=== PATIENT | female | born 2005 | race Caucasian/White ===

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

== ENCOUNTER 2023-10-19 12:24 | Outpatient (OUT) | payer BC, SELFPAY ==
[2023-10-19 14:09] LABS: Thyroid Stimulating Hormone 0.127 uIU/mL (0.358-3.740)
[2023-10-22 16:09] LABS: Thyroglobulin Antibody <1.0 IU/mL (0.0-0.9); Thyroid Peroxidase (TPO) Ab 22 IU/mL (0-34)
== END 2023-10-19 12:25 | disposition home or self-care (01) ==
PROVIDERS: PCP Internal Medicine; Visit Provider Radiology Radiation Oncology
DX: C73 Malignant neoplasm of thyroid gland (principal)
CPT/HCPCS: 36415; 84432; 84436; 84443; 86376; 86800

== ENCOUNTER 2025-01-01 14:53 | Outpatient (REF) | payer BC, SELFPAY ==
--- OUTSIDE RECORDS SUMMARY | 2025-01-01 11:30 | XMS_ITS | Encounter Summary ---
Author Organization [facility] Address [address] [facility] [place] [address] Care Team Providers Care Loom Changeover Operator Name Role Phone Shaikh FARNAZ Grijalva Primary Care Provider [phone] Reason for Visit * Reason Comments Gynecologic Exam Encounter Details Date Type Department Care Team (Latest Contact Info) Description 01/01/2025 11:30 AM EDT Procedure Visit [facility] [address] [place] [phone] Shama Rocha PA [address] [place], [facility]11 Well woman exam with routine gynecological exam Social History Tobacco Use Types Packs/Day Years Used Date Smoking Tobacco: Never Smokeless Tobacco: Never Alcohol Use Standard Drinks/Week Comments Not Currently 0 (1 standard drink = 0.6 oz pur e alcohol) Comments No Sex and Gender Information Value Date Recorded Sex Assigned at Not on file Legal Sex Female 6:55 PM EDT Gender Identity Not on file Sexual Orientation Not on file documented as of this encounter Last Filed Vital Signs Vital Sign Reading Time Taken Comments Blood Pressure 102/68 01/01/2025 11:51 AM EDT Pulse - - Temperature - - Respiratory Rate - - Oxygen Saturation - - Inhaled Oxygen Concentration - - Weight 62.1 kg (137 lb) 01/01/2025 11:51 AM EDT Height 172.7 cm (5' 8 ) 01/01/2025 11:51 AM EDT Body Mass Index 20.83 01/01/2025 11:51 AM EDT documented in this encounter Progress Notes * CHRIS Alberto - 01/01/2025 11:30 AM EDT Reason for Appointment: Patient ID: Jeanne Cormier is a 19 y.o. female who presents for Gynecologic Exam Patient presents today for Annual Exam. 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 Hoarse 11/06/2022 Papillary thyroid carcinoma (HCC) 12/15/2022 Resolved Ambulatory Problems Diagnosis Date Noted Acute right ankle pain 09/18/2022 Past Medical History: Diagnosis Date Disease of thyroid gland HISTORY PAST MEDICAL HISTORY SOCIAL HISTORY Past Medical History: Diagnosis Date Acute right ankle pain 09/18/2022 Disease of thyroid gland Social History Tobacco Use Smoking status: Never Smokeless tobacco: Never Substance Use Topics Alcohol use: Not Currently Drug use: Not Currently FAMILY HISTORY Family History Problem Relation Name Age of Onset Thyroid disease Mother Rachel Cormier SURGICAL HISTORY Past Surgical History: Procedure Laterality Date FNA W IMAGING GUIDANCE 07/28/2022 thyroid THYROID SURGERY 11/21/2022 RT hemithyroidectomy w neck explorationLidia THYROID SURGERY Left 12/07/2022 completion thyroidectomy, Dr. Murillo REVIEW OF SYSTEMS Review of Systems: Review of Systems Constitutional: Negative. HENT: Negative. Eyes: Negative. Respiratory: Negative. Cardiovascular: Negative. Gastrointestinal: Negative. Genitourinary: Negative. Musculoskeletal: Negative. Skin: Negative. Neurological: Negative. All other systems reviewed and are negative. Hematological: Negative. Endocrine: Negative. Allergic/Immunologic: Negative. OBJECTIVE Objective: Physical Exam Constitutional: Appearance: Normal appearance. She is well-developed. Genitourinary: Vulva normal. Right Adnexa: not tender and no mass present. Left Adnexa: not tender and no mass present. No cervical discharge. Breasts: Breasts are soft. Right: Normal. Left: Normal. HENT: Head: Normocephalic. Nose: Nose normal. Mouth/Throat: Mouth: Mucous membranes are moist. Cardiovascular: Rate and Rhythm: Normal rate and regular rhythm. Pulmonary: Effort: Pulmonary effort is normal. Breath sounds: Normal breath sounds. Abdominal: General: Bowel sounds are normal. There is no distension. Palpations: Abdomen is soft. Tenderness: There is no abdominal tenderness. There is no guarding or rebound. Musculoskeletal: General: No swelling. Normal range of motion. Cervical back: Normal range of motion. Right lower leg: No edema. Left lower leg: No edema. Neurological: General: No focal deficit present. Mental Status: She is alert and oriented to person, place, and time. Skin: General: Skin is warm and dry. Psychiatric: Mood and Affect: Mood normal. Behavior: Behavior normal. Vitals and nursing note reviewed. Exam conducted with a activities leader present. Vitals: Estimated body mass index is 21.9 kg/m?? as calculated from the following: Height as of 12/15/22: 5' 8 . Weight as of 12/15/22: 144 lb. BP: No LMP recorded. ASSESSMENT & PLAN ICD-10-CM 1. Well woman exam with routine gynecological exam Z01.419 Pap Smear Annual Exam: Patient presents today for an annual exam. Patient states she is doing well and has no complaints. Pap was obtained without difficulty. No orders of the defined types were placed in this encounter. Follow Up: Patient is to return in one year for annual unless needed otherwise. Documented by Shelley Prieto MA on behalf of: CHRIS Alberto documented in this encounter Plan of Treatment Upcoming Encounters Date Type Department Care Team (Late st Contact Info) Description 02/12/2025 9:20 AM EDT Office Visit [facility] [address] [place] [address] Janice Plata MD [address] [place] [address] Scheduled Orders Name Type Priority Associated Diagnoses Orde r Schedule Pap Smear Pathology and Cytology Routine Well woman exam with routine gynecological exam Ordered: 01/01/2025 documented as of this encounter Visit Diagnoses Diagnosis Well woman exam with routine gynecological exam Routine gynecological examination documented in this encounter Care Teams Loom Changeover Operator Relationship Specialty Start Date End Date Shaikh Grijalva MD PCP - General Internal Medicine 09/28/22 documented as of this encounter
--- OUTSIDE RECORDS SUMMARY | 2025-01-01 14:57 | XMS_ITS | Encounter Summary ---
Author Organization [facility] Address [address] [place] [address] Care Team Providers Care Soil Conservation Aide Name Role Phone Shaikh FARNAZ Grijalva Primary Care Provider [phone] Source Comments In the event this information is protected by the Federal Confidentiality of Alcohol and Drug AbusePatient Records regulations: The Federal rules restrict any use of the information to criminally investigate or prosecute any alcohol or drug abuse patient.[facility] Encounter Details Date Type Department Care Team (Late st Contact Info) Description 11/28/2022 Lab Requisition [facility] [address] [place] [address] Ras Morin [address] [place] [phone] Person encountering health services to consult on behalf of another person Social History Tobacco Use Types Packs/Day Years Used Date Smoking Tobacco: Never Assessed Comments Unknown Sex and Gender Information Value Date Recorded Sex Assigned at Not on file Legal Sex Female 9:09 AM EDT Gender Identity Not on file Sexual Orientation Not on file documented as of this encounter Plan of Treatment Upcoming Encounters Date Type Department Care Team (Late st Contact Info) Description 03/31/2025 11:00 AM EST Office Visit [facility] [address] [place] [address] labs 04/07/2025 4:15 PM EST [facility] Radiation Oncology [address] [place] [address] Debbi Blackmon MD [address] [place] [address] F/U Televisit documented as of this encounter Procedures Procedure Name Priority Date/Time Associated Diagnosis Comments SURGICAL PATHOLOGY REFERENCE LAB CONSULT Routine 11/28/2022 9:15 AM EDT Person encountering health services to consult on behalf of another person documented in this encounter Results * SURGICAL PATHOLOGY REFERENCE LAB CONSULT (11/28/2022 9:15 AM EDT) Case Report Surgical Pathology Report Case: [id number] Authorizing Provider: Ras Morin Collected: 11/28/2022 09:15 AM Ordering Location: [facility] Main Received: 11/28/2022 09:14 AM Pathologist: Marie Harrell MD Specimen: SLIDE(S)/BLOCK(S), 12 SLIDES ([id number]) & 12 BLOCKS (AFS,BFS,B1-B9,C) 12/01/2022 9:21 AM EDT [facility] FINAL DIAGNOSIS Outside slides ([id number], 11/21/2022, [place], [place]): A. Lymph nodes, anterior compartment of right neck, excision: - Two lymph nodes, negative for carcinoma (0/2). B. 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 - Chronic lymphocytic thyroiditis and nodular follicular hyperplasia. - See comment. C. Lymph node, anterior compartment of right neck, excision: - One lymph node negative for carcinoma (0/1). 12/01/2022 9:21 AM EDT [facility] at 0918 EDT Diagnosis Comment Thank you for sharing this challenging case with us. Sections of the right tyroid lobectomy show a follicular patterned nodule with partial cystic changes and occasional papillary structures, in a background of chronic lymphocytic thyroiditis and nodular follicular disease. On closer examination, the cells inside the nodule show variably expressed nuclear changes diagnostic for papillary thyroid carcinoma, including nuclear enlargement, crowding, pale chromatin and nuclear membrane irregularities. The periphery of the nodule is relatively well-demarcated with areas of irregularities consistent with focal tumor capsule invasion. Immunohistochemical stains for HBME1 were performed at [facility] (B4 and B6) and show the nodule cells are positive, supporting the diagnosis. The findings are consistent with papillary thyroid carcinoma, conventional type with a predominant follicular growth pattern. Extrathyroidal extension and lymphovascular invasion are not identified. The size of the nodule is difficult to accurately determine (tumor present on slides B1-B7) and correlation with the gross and ultrasound findings is recommended. As we are not involved in the gross assessment of the specimen, we are unable to comment on margin status or stage of consultation cases. Dr. Karla Cohen has reviewed selected slides and he agrees with the assessment. Thank you again for sending us this case in consultation. Please feel free to contact my office at [phone] if you have any questions. Laboratory Developed Test (LDT) Disclaimer: Performance characteristics of immunohistochemical, immunofluorescent and chromogenic in-situ hybridization tests have been determined by the performing laboratory within [facility] s [facility] Pathology and Laboratory Medicine [place] ([facility], [facility], [facility], [facility], [facility], or [facility]) in a manner consistent with CLIA requirements. One or more of these tests have not been cleared or approved by the FDA. [facility] is regulated under CLIA as qualified to perform high-complexity testing. These tests are used for clinical purposes. They should not be regarded as investigational or for research. Positive and negative controls stain appropriately. 12/01/2022 9:21 AM EDT [facility] Clinical History CONSULT REQUESTED 12/01/2022 9:21 AM EDT [facility] Performing Lab Diagnostic interpretation performed at [facility], [address] [place] [address] CLIA# [id number] Shared Services And Outsourcing Manager: Mario Alberto Ruiz M.D. 12/01/2022 9:21 AM EDT [facility] Addendum NRAS immunohistochemical stain was also performed at [facility] (B6) and is positive in the nodule cells. There is no change to the diagnosis. 12/01/2022 9:21 AM EDT [facility] Addendum electronically signed by Marie Harrell MD on 12/01/2022 at 0921 EDT Blocks or Slides PARAFFIN EMBEDDED TISSUE BLOCK SPECIMEN / Unknown 11/28/2022 9:15 AM EDT 11/28/2022 9:14 AM EDT us Ras Morin SURGICAL PATHOLOGY Edited R esult - Final [facility] [address] [place] [address], documented in this encounter Visit Diagnoses Diagnosis Person encountering health services to consult on behalf of another person Other person consulting on behalf of another person documented in this encounter Care Teams Soil Conservation Aide Relationship Specialty Start Date End Date Shaikh Grijalva MD [facility] [place] [address] [place] [address] PCP - General Primary Care 03/16/23 04/06/24 documented as of this encounter
--- OUTSIDE RECORDS SUMMARY | 2025-01-01 14:57 | XMS_ITS | Encounter Summary ---
Author Organization [facility] Address [address] [place] [address] Care Team Providers Care In Flight Technician Name Role Phone Shaikh FARNAZ Grijalva Primary Care Provider [phone] Source Comments In the event this information is protected by the Federal Confidentiality of Alcohol and Drug AbusePatient Records regulations: The Federal rules restrict any use of the information to criminally investigate or prosecute any alcohol or drug abuse patient.[facility] Encounter Details Date Type Department Care Team ([facility] Contact Info) Description 12/14/2022 Lab Requisition [facility] [address] [place] [address] Claudia Castle MD [address] [place] [id number] Person encountering health services to consult on [...] Upcoming Encounters Date Type Department Care Team ([facility] Contact Info) Description 03/31/2025 11:00 AM EST Office Visit [facility] [address] [place] [address] labs 04/07/2025 4:15 PM EST [facility] Radiation Oncology [address] [place] [place] [address] Debbi Blackmon MD [address] [place] [address] F/U Televisit documented as of this encounter Procedures Procedure Name Priority Date/Time Associated Diagnosis Comments SURGICAL PATHOLOGY REFERENCE LAB CONSULT Routine 12/14/2022 10:32 AM EDT Person encountering health services to consult on behalf of another person documented in this encounter Results * SURGICAL PATHOLOGY REFERENCE LAB CONSULT (12/14/2022 10:32 AM EDT) Case Report Surgical Pathology Report Case: [id number] Authorizing Provider: Claudia Castle MD Collected: 12/14/2022 10:32 AM Ordering Location: [facility] Lab Main Received: 12/14/2022 10:31 AM Pathologist: Freddie Branch MD Specimen: SLIDE(S), 7 SLIDES, [id number] 12/15/2022 12:50 PM EDT [facility] FINAL DIAGNOSIS 7 slides labeled [id number] are received from [facility] ([place], [place]), collected December 07, 2022. 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 - No angiolymphatic or perineural invasion. - Nodular thyroid hyperplasia. - Chronic lymphocytic thyroiditis. - Parathyroid tissue present. 12/15/2022 12:50 PM EDT [facility] at 1249 EDT Diagnosis Comment As we are not involved in the gross assessment of the specimen, we are unable to comment on margin status or stage of consultation cases. Dr. Nahid Bridges concurs. 12/15/2022 12:50 PM EDT [facility] Clinical History CONSULT REQUESTED 12/15/2022 12:50 PM EDT [facility] Performing Lab Diagnostic interpretation performed at [address]# [id number] [employer] Wire Fabric Machine Tender: Mario Alberto Ruiz M.D. 12/15/2022 12:50 PM EDT [facility] Blocks or Slides MICROSCOPE SLIDE / Unknown 12/14/2022 10:32 AM EDT 12/14/2022 10:31 AM EDT us Claudia Castle MD SURGICAL PATHOLOGY Final Result [facility] [address] [place] [address] [place] [address], documented in this encounter Visit Diagnoses Diagnosis Person encountering health services to consult on behalf of another person Other person consulting on behalf of another person documented in this encounter Care Teams In Flight Technician Relationship Specialty Start Date End Date Shaikh Grijalva MD [facility] [place] [address] PCP - General Primary Care 03/16/23 04/06/24 documented as of this encounter
--- OUTSIDE RECORDS SUMMARY | 2025-01-01 14:57 | XMS_ITS | Encounter Summary ---
Author Organization [facility] Address [address] [place] [address] Care Team Providers Care Laboratory Chief Name Role Phone Shaikh FARNAZ Grijalva Primary Care Provider [phone] Encounter Details Date Type Department Care Team (Late st Contact Info) Description 01/01/2025 Bamboo flowsheet [facility] [address] [place] [phone] Shama Rocha PA [address] [place], [facility] Social History Tobacco Use Types Packs/Day Years [...] Description 02/12/2025 9:20 AM EDT Office Visit [facility] [address] [place] [phone] Janice Plata MD [address] [place] [address] documented as of this encounter Visit Diagnoses Not on filedocumented in this encounter Care Teams Laboratory Chief Relationship Specialty Start Date End Date Shaikh Grijalva MD PCP - General Internal Medicine 09/28/22 documented as of this encounter
--- OUTSIDE RECORDS SUMMARY | 2025-01-01 14:58 | XMS_ITS | Clinical Summary ---
Author Organization [facility] Address [address] [place] [address] Care Team Providers Care Roller [employer] Name Role Phone Shaikh FARNAZ Grijalva Primary Care Provider [phone] Allergies No known active allergies Medications liothyronine (Cytomel) 5 MCG tablet Take by mouth Daily. Active calcitriol (Rocaltrol) 0.25 MCG capsule Take 0.5 mcg by mouth in the morning. Active calcium acetate (Phoslo) 667 MG capsule Take 1,334 mg by mouth in the morning and 1,334 mg at noon and 1,334 mg in the evening. Take with meals. Active levothyroxine (Synthroid, Levoxyl) 150 MCG tablet Take 150 mcg by mouth in the morning. 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 Enlargement of thyroid 09/18/2022 Abnormal thyroid biopsy 09/18/2022 Resolved Problems Problem Noted Date Diagnosed Date Resolved Date Acute right ankle pain 09/18/202209/18 Encounters Date Type Department Care Team Description 01/01/2025 11:30 AM EDT Procedure Visit [facility] [address] [place] [address] Shama Rocha PA Well woman exam with routine gynecological exam 01/01/2025 Bamboo flowsheet [facility] [address] [place] [address] Shama Rohca PA from Last 3 Months Family History Medical History Relation Name Comments Thyroid disease Mother Rachel Cormier Relation Name Status Comments Father Alive Mother Rachel Cormier Alive Social History Tobacco Use Types Packs/Day Years Used Date Smoking Tobacco: Never Smokeless Tobacco: Never Tobacco Cessation:Counseling Given: Not Answered Alcohol Use Standard Drinks/Week Comments Not Currently 0 (1 standard drink = 0.6 oz pur e alcohol) Comments No Sex and Gender Information Value Date Recorded Sex Assigned at Not on file Legal Sex Female 6:55 PM EDT Gender Identity Not on file Sexual Orientation Not on file Last Filed Vital Signs Vital Sign Reading Time Taken Comments Blood Pressure 102/68 01/01/2025 11:51 AM EDT Pulse - - Temperature - - Respiratory Rate - - Oxygen Saturation - - Inhaled Oxygen Concentration - - Weight 62.1 kg (137 lb) 01/01/2025 11:51 AM EDT Height 172.7 cm (5' 8 ) 01/01/2025 11:51 AM EDT Body Mass Index 20.83 01/01/2025 11:51 AM EDT Plan of Treatment Upcoming Encounters Date Type Department Care Team (Late st Contact Info) Description 02/12/2025 9:20 AM EDT Office Visit [facility] [address] [place] [phone] Janice Plata MD [address] [place] [address] Insurance [facility] Member Subscriber Plan / Payer ( fective 2019-Present) Name:Jeanne Cormier Relation to Subscriber:Child Name:Genia Abdirashid Fredy Date of :1974 (Home) Address: [address] [place] [address] Payer ID:Not on file Type:Not on file Address: [address] [place] [phone] [facility] Care Teams [employer] Relationship Specialty Start Date End Date Shaikh Grijalva MD PCP - General Internal Medicine 09/28/22
--- OUTSIDE RECORDS SUMMARY | 2025-01-01 16:19 | XMS_ITS | CCD ---
Author Organization [facility] Care Team Providers Care Director Microbiology Name Role Phone VALENTINE, PETERSON H Attending Unavailable FAWWAD, PETERSON H Admitting Unavailable FAWWAD, PETERSON H Primary Care Unavailable DR CLIFFORD SAINI Consulting Unavailable FAWWAD, PETERSON H Consulting Unavailable DR GIULIANO WHITTAKER V Consulting Unavailable FAWWAD, PETERSON H Attending Unavailable FAWWAD, PETERSON H Admitting Unavailable FAWWAD, PETERSON H Primary Care Unavailable FAWWAD, PETERSON H Consulting Unavailable FAWWAD, PETERSON H Attending Unavailable FAWWAD, PETERSON H Admitting Unavailable FAWWAD, PETERSON H Primary Care Unavailable FAWWAD, PETERSON H Consulting Unavailable Kerry Chavarria Unavailable SHAIKH GRIJALVA Primary Care Physician [phone] Unavailable Primary Care Provider Unavailabl e Timmis, Yulaina H Referring Unavailable Timmis, Yuliana H Admitting Unavailable ARTIWDANIELLA, Primary Care Unavailable Timmis, Yuliana H Attending Unavailable Timmis, Yuliana H Attending Unavailable Timmis, Yuliana H Referring Unavailable Timmis, Yuliana H Admitting Unavailable FAWWAD, PETERSON Primary Care Unavailable Timmis, Yuliana H Attending Unavailable Timmis, Yuliana H Referring Unavailable Timmis, Yuliana H Admitting Unavailable Shaikh Grijalva MD Primary Care Provider Shaikh Grijalva MD Primary Care Provider Unavailable Primary Care Provider Unavailabl e Debbi SINGH Referring Unavailable Debbi SINGH Attending Unavailable Debbi SINGH Attending Unavailable SHAIKH GRIJALVA Primary Care Unavailable Debbi SINGH Attending Unavailable Debbi SINGH Referring Unavailable Debbi SINGH Attending Unavailable Debbi SINGH Referring Unavailable Debbi SINGH Attending Unavailable Debbi SINGH Referring Unavailable Shaikh Grijalva MD Primary Care Provider Allergies Allergy Classification Reported Allergen(s) Allergy Type Date of Onset Reaction(s) Facility (1 source) No Known Medication Allergies; Translations: [No Known Medication Allergies] Propensity to adverse reactions (disorder) [facility] Repository Medications Current Medications Medication Drug Class(es) Dates Sig (Normalized) Sig (Original) calcium acetate 667 mg oral capsule (2 sources) calcium acetate (Phoslo) 667 MG capsule Take 1,334 mg by mouth in the morning and 1,334 mg at noon and 1,334 mg in the evening. Take with meals. Active levothyroxine sodium 0.175 mg oral tablet (20 sources) l-Thyroxine Start: 06-19-2024 take 1 tablet by mouth once daily before breakfast levothyroxine (SYNTHROID) 175 mcg tablet Take 1 tablet by mouth daily before breakfast. 90 tablet 3 06/19/2024 Active Start: 04-15-2024 End: 11-10-2024 take 1 tablet by mouth in the morning levothyroxine (Synthroid, Levoxyl) 150 MCG tablet Take 150 mcg by mouth in the morning. 05/08/2024 Active Start: 06-12-2023 End: 11-10-2024 take 1 tablet by mouth once daily before breakfast levothyroxine (SYNTHROID) 137 mcg tablet Take 1 tablet by mouth daily before breakfast. 30 tablet 3 04/14/2024 04/15/2024 Discontinued Start: 04-02-2023 End: 06-12-2023 take 1 tablet by mouth once daily levothyroxine (SYNTHROID) 125 mcg tablet Indications: Thyroid cancer (HCC) Take 1 tablet by mouth once daily. 30 tablet 3 04/02/2023 06/12/2023 Discontinued Start: 02-14-2023 take 1 tablet by sid th once daily levothyroxine (SYNTHROID) 112 mcg tablet TAKE 1 TABLET BY MOUTH EVERY DAY 90 tablet 1 02/14/2023 Active Start: 01-17-2023 End: 02-14-2023 take 1 tablet by mouth once daily levothyroxine (SYNTHROID) 112 mcg tablet Take 1 tablet by mouth once daily. 30 tablet 2 01/17/2023 02/14/2023 Discontinued Start: 11-13-2022 take 1 tablet by sid th once daily levothyroxine 50 mcg (0.05 mg) Tab 50 mcg = 1 tab(s), Oral, Daily, Thyroid Start Date: 11/13/22 Status: Ordered take 1 tablet by sid th once daily in the morning Synthroid 50 MCG 1 tablet in the morning on an empty stomach Orally Once a day Active Comment on above: Take 1 tablet by sid th once daily. TAKE 1 TABLET BY SID TH EVERY DAY Take 1 tablet by sid th daily before breakfast. Lutera (2 sources) Start : 11-02 Lutera 1 tab(s), Oral, Daily, 56 tab(s), Refill(s) 0 Start Date: 11/03/19 Status: Ordered MDI Spacer (2 sources) Start : 02-25 MDI Spacer MDI Spacer, See Instructions, 1 EA, 0, Use as directed, [employer] #72, Supply, 171, cm, 02/26/20 8:30:00 EST, Height/Length Dosing, 63.3, kg, 02/26/20 8:30:00 EST, Weight Dosing Start Date: 02/26/20 Status: Ordered 1 ml medroxyPROGESTERone acetate 150 mg/ml prefilled syringe (19 sources) Progestin Start : 04-07 End: 01-01 inject 1 mL by intramuscular injection once medroxyPROGESTERone (Depo-Provera) 150 MG/ML suspension prefilled syringe injection syringe Indications: Encounter for surveillance of injectable contraceptive INJECT 1 ML INTRAMUSCULARLY ONCE 1 mL 2 04/07/2024 01/01/2025 Discontinued (Therapy completed) Start: 01-08-2023 medroxyPROGEST ERone (DEPO-PROVERA) 150 mg/mL injection 01/08/2023 Active Orsythia (1 source) Orsythia Active Completed/Discontinued Medications Medication Drug Class(es) Dates Sig (Normalized) Sig (Original) albuterol HFA 90 mcg/inh MDI (2 sources) Start: 02-26-2020 take 1 dose by inhalation every four hours albuterol HFA 90 mcg/inh MDI 2 puff(s), Inhalation, q4hr Shortness of breath or wheezing, 1 EA, Refill(s) 1, as directed 15 minutes before exercise use with spacer chamber, [employer] #72, 171, cm, 02/26/20 8:30:00 EST, Height/Length Dosing, 63.3, kg, 02/26/20 8:30... Start Date: 02/26/20 Status: Ordered calcitriol 0.53604 mg oral capsule (13 sources) Vitamin D3 Analog Start: 12-09-2022 End: 04-15-2024 calcitriol (ROCALTROL) 0.25 mcg capsule Take 0.5 mcg by mouth. 12/09/2022 04/15/2024 Discontinued (Discontinued by another Health Care Provider) Comment on above: Take 0.5 mcg by mout h. calcium carbonate 1250 mg oral tablet (11 sources) Start: 12-08-2022 End: 04-15-2024 take 2 tablets by mouth three times daily calcium carbonate (OS-CORAL 500) 500 mg calcium (1,250 mg) tablet Take 2 tablets by mouth three times daily. 12/08/2022 04/15/2024 Discontinued (Discontinued by another Health Care Provider) Comment on above: Take 2 tablets by mo [facility] three times daily. liothyronine sodium 0.025 mg oral tablet (3 sources) l-Triiodothyroni ne Start: 12-09-2022 liothyronine (CYTOMEL) 25 mcg tablet take 1 tablet by mouth once lauro y liothyronine (Cytomel) 5 MCG tablet Take by mouth Daily. Active naproxen 375 mg oral tablet (1 source) Nonsteroidal Anti-inflammatory Drug Start: 02-17-2019 take 1 tablet by mouth every twelve hours at mealtime as needed Naproxen 375 MG 1 tablet with food or milk as needed Orally every 12 hrs for 7 days Jan, Not-Taking Problems Active Problems Problem Classification Problem Date Documented Date Episodic/Chronic Administrative/social admission (1 source) Encounter for examination for participation in sport Episodic Allergic reactions (2 sources) Acute contact dermatitis 02-26-2020 Episodic Anxiety disorders (2 sources) Anxiety 02-26-2020 Chronic Asthma (2 sources) Asthma 11-13-2022 Chronic Cancer of thyroid (11 sources) Malignant tumor of thyroid gland; Translations: [Malignant neoplasm of thyroid gland] Onset: 12-08-2022 Chronic Malaise and fatigue (6 sources) Other fatigue; Translations: [Fatigue] Onset: 04-19-2022 Episodic Other female genital disorders (2 sources) H/O: menorrhagia 11-13-2022 Episodic Other lower respiratory disease (4 sources) Dyspnea; Translations: [Shortness of breath] Onset: 11-21-2022 Episodic Ovarian cyst (2 sources) Cyst of ovary 11-13-2022 Episodic Thyroid disorders (16 sources) Nontoxic single thyroid nodule; Translations: [Nontoxic goiter, unspecified] Onset: 07-03-2022 Chronic Past or Other Problems Problem Classification Problem Date Documented Da te Episodic/Chronic Other non-traumatic joint disorders (2 sources) Acute ankle pain; Translations: [Pain in right ankle and joints of right foot] Onset: 09-18-2022 Resolved: 09-18-2022 09-18-2022 Episodic Other screening for suspected conditions (not mental disorders or infectious disease) (4 sources) Raised TSH level; Translations: [Thyroid biopsy specimen abnormal] Onset: 09-18-2022 03-01-2020 Episodic Other upper respiratory disease (2 sources) Hoarse; Translations: [Dysphonia] Onset: 11-06-2022 11-06-2022 Episodic Thyroid disorders (2 sources) Mass of thyroid gland; Translations: [Disorder of thyroid, unspecified] Onset: 09-29-2022 09-29-2022 Episodic Results Test Name Value Interpretation Reference Range Facility hearing screening*on 025 Unknown Analyte Pass Invalid Interpretation Code [facility] urinal[facility], dipstickon 11-10 Appearance (U) Clear Invalid Interpretation Code [facility] Color (U) Yellow Invalid Interpretation Code [facility] Glucose Ql (U) Negative Invalid Interpretation Code [facility] T3 SerPl-mCncon 09-12-2024 T3 [Mass/Vol] 130 ng/dL Normal 79-165 [facility] Comment on above: Order Comment: Speci men Type: BLOOD SPECIMEN Ordering Facility: [facility] Address: [address] [place] [address] Performed By: #### 3 053-6, 3016-3, 3026-2 #### [facility] CLIA [id number] [address] [place] [address] [place] T4 SerPl-mCncon 09-12-2024 T4 [Mass/Vol] 9.5 ug/dL Normal 5.5-10.2 [facility] Comment on above: Order Comment: Speci men Type: BLOOD SPECIMEN Ordering Facility: [facility] Address: [address] [place] [address] Performed By: #### 3 053-6, 3016-3, 3026-2 #### [facility] CLIA [id number] [address] [place] [address] [place] TSH SerPl-aCncon 09-12-2024 TSH Qn 0.025 m[IU]/L Low 0.270-4.200 [facility] Comment on above: Order Comment: Speci phyllis Type: BLOOD SPECIMEN Ordering Facility: [facility] Address: [address] [place] [address] Result Comment: If t he patient is , TSH reference range varies by gestational period: First Trimester (weeks 9-12): 0.180-2.990 mIU/L Second Trimester: 0.110-3.980 mIU/L Third Trimester: 0.480-4.710 mIU/L Elias Holguin et al. A Practical Approach for the Verifications and Determination of Site- and Trimester-Specific Reference Intervals for Thyroid Function tests in . Thyroid, 2019:29:3:412-420. aDrci E, et al. 2017 Guidelines of the [place] Thyroid Association for the Diagnosis and Management of Thyroid Disease during and the . Thyroid, 2017:27:3:315-389. Performed By: #### 3 053-6, 3016-3, 3026-2 #### [facility] CLIA [id number] [address] [place] [address] [place] Thyroglobulin and Thyrogobul in Ab panelon 09-12-2024 Thyroglobulin Ab Qn [IU]/mL Normal <4.0 [facility] Comment on above: Order Comment: Arvin ferguson Type: BLOOD SPECIMEN Ordering Facility: [facility] Address: [address] [place] [address] Result Comment: The Thyroglobulin Antibody test was performed using the Jael Scribd Unicel DXI paramagnetic particle chemiluminescent immunoassay method. Results obtained with different assay methods or kits cannot be used interchangeably. Performed By: #### 3 016-3, 3026-2 #### [facility] CLIA [id number] [address] [place] [address] [place] THYROGLOBULIN, SERUM <0.1 Low 1.6-50.0 [facility] Comment on above: Order Comment: Arvin ferguson Type: BLOOD SPECIMEN Ordering Facility: [facility] Address: [address] [place] [address] Result Comment: The Thyroglobulin test was performed using the Zing Unicel DXI paramagnetic particle chemiluminescent immunoassay method. Results obtained with different assay methods or kits cannot be used interchangeably. Performed By: #### 3 016-3, 3026-2 #### [facility] CLIA [id number] [address] [place] [address] [place] Bogdan 08-18-2024 [facility] Telephone ([facility]) JEANNE MÁRQUEZ ([id number]) 1 F Date Time Provider Department 08/18/24 Debbi SINGH During your visit today, we recorded the following information about you: Fam Montes De Oca, RN 08/18/2024 4:24 PM Signed Jeanne called stating she has not had labs drawn yet for tomorrow's phone visit. She is graduating college on 08/30/24 and would like to have labs drawn at [facility] sometime the week of 09/03/24. Follow up rescheduled with Dr. Singh to 09/23/24 at 3:[address] Singh's PTO. PSS: Please reschedule 08/19/24 phone visit to 09/23/24 at 3:45 per patient request. I will mail a copy of the lab work to patient's home address. TONY Hayes Autumn, HUC 08/19/2024 9:38 AM Signed I canceled today's Televisit and rescheduled it to 09/23/24 at 345 pm. JESSICA Frazier Allergies As of Date: 08/18/2024 (No Known Allergies) Date Reviewed: 01/09/2023 Reviewed by: Fam Montes De Oca LPN - Fully Assessed Reason for Visit: Appointment [186] Prescriptions as of 08/19/2024 - levothyroxine (SYNTHROID) 175 mcg tablet Take 1 tablet by mouth daily before breakfast. - levothyroxine (SYNTHROID) 150 mcg tablet TAKE 1 TABLET BY MOUTH EVERY DAY - medroxyPROGESTERone (DEPO-PROVERA) 150 mg/mL injection Problem List As Of Date: 08/18/2024 (None) Encounter Status:Closed by FAM MONTES DE OCA on 08/19/[address] [facility] 06-23-2024 [facility] Telephone ([facility]) JEANNE MÁRQUEZ ([id number]) 1 F Date Time Provider Department 06/23/24 Debbi SINGH During your visit today, we recorded the following information about you: Svetlana Bhagat RN 06/23/2024 8:55 AM Signed Message Received: 4 days ago Debbi Singh MD P Radt Ernestine Munson; Svetlana Hernández 2 m with labs televisit Allergies As of Date: 06/23/2024 (No Known Allergies) Date Reviewed: 01/09/2023 Reviewed by: Fam Montes De Oca LPN - Fully Assessed Reason for Visit: Future Appointment [256] Prescriptions as of 07/07/2024 - levothyroxine (SYNTHROID) 175 mcg tablet Take 1 tablet by mouth daily before breakfast. - levothyroxine (SYNTHROID) 150 mcg tablet TAKE 1 TABLET BY MOUTH EVERY DAY - medroxyPROGESTERone (DEPO-PROVERA) 150 mg/mL injection Problem List As Of Date: 06/23/2024 (None) Encounter Status:Closed by SVETLANA BHAGAT on 07/07/24 Normal [facility] Calcium SerPl-mCncon 025 Calcium [Mass/Vol] 9.4 mg/dL Normal 8.5-10.2 [facility] Comment on above: Order Comment: Speci men Type: BLOOD SPECIMEN Ordering Facility: [facility] Address: [address] [place] [address] Performed By: #### 3 016-3, 3026-2 #### [facility] CLIA [id number] [address] [place] [address] [place] T3 SerPl-mCncon 06-05-2024 T3 [Mass/Vol] 98 ng/dL Normal 79-165 [facility] Comment on above: Order Comment: Mravi men Type: BLOOD SPECIMEN Ordering Facility: [facility] Address: [address] [place] [address] Performed By: #### 3 016-3, 3026-2, 3053-6 #### [facility] CLIA [id number] [address] [place] [address] [place] T4 SerPl-mCncon 06-05-2024 T4 [Mass/Vol] 7.3 ug/dL Normal 5.5-10.2 [facility] Comment on above: Order Comment: Marvi men Type: BLOOD SPECIMEN Ordering Facility: [facility] Address: [address] [place], [place] [address] Performed By: #### 3 016-3, 3026-2, 3053-6 #### [facility] CLIA [id number] [address] [place] [address] [place] TSH SerPl-aCncon 06-05-2024 TSH Qn 5.910 m[IU]/L High 0.270-4.200 [facility] Comment on above: Order Comment: Speci men Type: BLOOD SPECIMEN Ordering Facility: [facility] Address: [facility] [place] [address] Result Comment: If t he patient is , TSH reference range varies by gestational period: First Trimester (weeks 9-12): 0.180-2.990 mIU/L Second Trimester: 0.110-3.980 mIU/L Third Trimester: 0.480-4.710 mIU/L Elias Holguin et al. A Practical Approach for the Verifications and Determination of Site- and Trimester-Specific Reference Intervals for Thyroid Function tests in . Thyroid, 2019:29:3:412-420. Darci Kulkarni, et al. 2017 Guidelines of the Canadian Thyroid Association for the Diagnosis and Management of Thyroid Disease during and the . Thyroid, 2017:27:3:315-389. Performed By: #### 3 016-3, 3026-2, 3053-6 #### [facility] CLIA [id number] [address] [place], [place] [address] [place] CNOVon 04-15-2024 CNOV Office Visit ([facility] ) JEANNE MÁRQUEZ ([id number]) 1 F Date Time Provider Department 04/15/24 10:00 AM Debbi SINGH During your visit today, we recorded the following information about you: Temperature Pulse Respiration Blood pressure 98 degrees 71/minute 16/minute 104/73 Weight 65.1 kg Debbi Singh MD 04/22/2024 9:40 AM Signed Radiation Oncology -follow-up note PATIENT NAME: Jeanne Márquez PATIENT : 2005 Primary Site: Thyroid Date of Diagnosis: November 21, 2022 Clinical Stage: T2 N0 M0 Pathologic Stage: T2 N0 M0 DIAGNOSIS: 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 HPI: Overall doing well. She only spoke. Has follow-up more cold than has had increased fatigue over the past 1 to 2 months. Denies any chest pain. No dysphagia. Latest Reference Range AND Units 01/09/23 10:02 03/16/23 09:54 04/07/24 10:23 T4 5.5 - 10.2 ug/dL 0.5 (L) 7.3 8.1 TSH 0.510 - 4.300 mIU/L 2.240 14.300 (H) 21.700 (H) Thyroglobulin Ab, Serum <4.0 IU/mL <0.9 Thyroglobulin, Serum 1.6 - 50.0 ng/mL 0.3 (L) (L): Data is abnormally low (H): Data is abnormally high LABORATORY: Latest Reference Range AND Units 01/09/23 10:02 03/16/23 09:54 06/01/23 09/29/23 Thyroglobulin, LC-MS/MS 1.3 - 31.8 ng/mL <0.5 (L) na T4 5.5 - 10.2 ug/dL 0.5 (L) 7.3 9.6 10.3 TSH 0.510 - 4.300 mIU/L 2.240 14.300 (H) 6.13 .127 Review of Systems: PAIN ASSESSMENT: Negative for pain, history of chronic pain, or current treatment for a chronic pain condition. GENERAL: No weight loss, malaise or fevers. NECK: Negative for goiter, pain or significant neck swelling MUSCULOSKELETAL: Negative for joint pain or swelling, back pain or muscle pain The remainder of the review of systems is negative. ALLERGIES No Known Allergies MEDICATIONS: medroxyPROGESTERone (DEPO-PROVERA) 150 mg/mL injection levothyroxine (SYNTHROID) 150 mcg tablet Take 1 tablet by mouth once daily. No past medical history on file. Prior radiation therapy, collagen vascular disease, or inflammatory bowel disease: No Any implanted or external electric devices? No status: Patient states there is no possibility she is at this time. Educated on risks of during treatment. PAST SURGICAL HISTORY Procedure Laterality Date THYROIDECTOMY FAMILY HISTORY Problem Relation Age of Onset Leukemia Paternal Grandfather Breast Cancer Maternal Aunt Social History Tobacco Use Smoking status: Never Smokeless tobacco: Never Substance Use Topics Alcohol use: Not Currently Drug use: Not Currently PHYSICAL EXAM: VS: BP 104/73 Pulse 71 Temp 36.7 ?C (98 ?F) Resp 16 Wt 65.1 kg (143 lb 8.3 oz) SpO2 100% BMI 22.48 kg/m? KPS: 100 General Appearance: Alert and oriented. No acute distress. HEENT: NCAT. Sclera anicteric. PERRL. EOMI. Oral cavity AND oropharnyx: lips and gums normal, oral and pharyngeal mucosa moist, palate elevates normally, tongue mobile and without palpable lesions, tonsils without masses Neck: Normal ROM. No palpable cervical or supraclavicular adenopathy. Musculoskeletal: No edema. Normal ROM in extremities. No bone or spine tenderness. Neuro: Speech fluent. Gait normal. No focal deficits. Skin: No rashes noted Lymphatics: No palpable lymphadenopathy. Hematologic: No signs of active bleeding. 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 Overall doing fairly well. Thyroglobulin remains very low despite lack of TSH suppression, actual TSH elevation presently. Given this recommend continued follow-up. Recommend increasing Synthroid for better TSH suppression will recheck labs in 2 to 3 months Signed by: Debbi Singh MD cc: To use this Smartlink, specify the provider ID whose address you want to display, e.g., .PROVADDR[1 (where 1 is the provider ID). Shaikh Valentine [address] [place] [address] Dr. Murillo Referring Provider: NO PCP [956] Allergies As of Date: 04/15/2024 (No Known Allergies) Date Reviewed: 01/09/2023 Reviewed by: Fam Montes De Oca LPN - Fully Assessed Reason for Visit: Thyroid Cancer [879] Primary Visit Diagnosis:Thyroid cancer (HCC) [C73] Order(s):THYROID STIMULATING HORMONE [SQTSH] Order #: [id number] FUTURE T4/THYROXINE [SQT4] Order #: [id number] FUTURE THYROID STIMULATING HORMONE [SQTSH] Order #: [id number] FUTURE T3 [SQT3] Order #: [id number] FUTURE T4/THYROXINE [SQT4] Order #: [id number] FUTURE levothyroxine (SYNTHROID) 150 mcg tabletT (more content not included)... Normal [facility] T4 SerPl-mCncon 04-07-2024 T4 [Mass/Vol] 8.1 ug/dL Normal 5.5-10.2 [facility] Comment on above: Order Comment: Arvin ferguson Type: BLOOD SPECIMEN Ordering Facility: [facility] Address: [address] [place] [address] Performed By: #### 3 016-3, 3026-2 #### [facility] CLIA [id number] [address] [place] [address] [place] TSH SerPl-aCncon 04-07-2024 TSH Qn 21.700 m[IU]/L High 0.510-4.300 [facility] Comment on above: Order Comment: Arvin ferguson Type: BLOOD SPECIMEN Ordering Facility: [facility] Address: [address] [place] [address] Result Comment: If t he patient is , TSH reference range varies by gestational period: First Trimester (weeks 9-12): 0.180-2.990 mIU/L Second Trimester: 0.110-3.980 mIU/L Third Trimester: 0.480-4.710 mIU/L Elias Holguin et al. A Practical Approach for the Verifications and Determination of Site- and Trimester-Specific Reference Intervals for Thyroid Function tests in . Thyroid, 2019:29:3:412-420. Darci Kulkarni et al. 2017 Guidelines of the [place] Thyroid Association for the Diagnosis and Management of Thyroid Disease during and the . Thyroid, 2017:27:3:315-389. Performed By: #### 3 016-3, 3026-2 #### [facility] CLIA [id number] [address] [place] [address] [place] OF [facility] Thyroglobulin and Thyrogobul in Ab panelon 04-07-2024 Thyroglobulin Ab Qn [IU]/mL Normal <4.0 [facility] Comment on above: Order Comment: Arvin ferguson Type: BLOOD SPECIMEN Ordering Facility: [facility] Address: [address] [place] [address] Result Comment: The Thyroglobulin Antibody test was performed using the AtheroNovael DXI paramagnetic particle chemiluminescent immunoassay method. Results obtained with different assay methods or kits cannot be used interchangeably. Performed By: #### 3 016-3, 3026-2 #### [facility] CLIA [id number] [address] [place] [address] THYROGLOBULIN, SERUM 0.3 ng/mL Low 1.6-50.0 [facility] Comment on above: Order Comment: Arvin ferguson Type: BLOOD SPECIMEN Ordering Facility: [facility] Address: [address] [place] [address] Result Comment: The Thyroglobulin test was performed using the Jael Genia Unicel DXI paramagnetic particle chemiluminescent immunoassay method. Results obtained with different assay methods or kits cannot be used interchangeably. Performed By: #### 3 016-3, 3026-2 #### [facility] CLIA [id number] [address] [place] [address] OF [place] Bogdan 04-01-2024 [place]GET[place] Telephone ([facility]) JEANNE MÁRQUEZ R ([id number]) 1 F Date Time Provider Department 04/01/24 Debbi SINGH During your visit today, we recorded the following information about you: Svetlana Bhagat RN 04/01/2024 9:03 AM Signed Please sign new Thyroglobulin order. Svetlana Bhagat RN Allergies As of Date: 04/01/2024 (No Known Allergies) Date Reviewed: 01/09/2023 Reviewed by: Fam Montes De Oca LPN - Fully Assessed Reason for Visit: Lab Orders [9198] Primary Visit Diagnosis:Thyroid cancer (HCC) [C73] Order(s):THYROGLOBULIN, SERUM WITH REFLEX TO IA OR LC-MS/MS [SQTHYRORF] Order #: [id number] FUTURE Prescriptions as of 04/02/2024 - levothyroxine (SYNTHROID) 137 mcg tablet Take 1 tablet by mouth daily before breakfast. - calcitriol (ROCALTROL) 0.25 mcg capsule Take 0.5 mcg by mouth. - calcium carbonate (OS-CORAL 500) 500 mg calcium (1,250 mg) tablet Take 2 tablets by mouth three times daily. - medroxyPROGESTERone (DEPO-PROVERA) 150 mg/mL injection Problem List As Of Date: 04/01/2024 (None) Encounter Status:Closed by VSETLANA BHAGAT on 04/02/[address] [facility] 02-25-2024 [facility] Telephone (RADTSA) JEANNE MÁRQUEZ ([id number]) 1 F Date Time Provider Department 02/25/24 Debbi SINGH During your visit today, we recorded the following information about you: Fam Montes De Oca LPN 02/25/2024 10:08 AM Signed Keegan pt's mother, left a message stating Jeanne is scheduled for a follow up with Dr. Singh 03/04/24. She is wondering if this appointment and lab work can be pushed back to March when Jeanne is home from [facility]. Please advise. TONY Pelayo Ariana, LPN 02/27/2024 9:18 AM Signed Keegan notified of Dr. Singh's response. Call transferred to [facility] to reschedule. Fam Montes De Oca RN Allergies As of Date: 02/25/2024 (No Known Allergies) Date Reviewed: 01/09/2023 Reviewed by: Fam Montes De Oca LPN - Fully Assessed Reason for Visit: Appointment [186] Prescriptions as of 02/27/2024 - levothyroxine (SYNTHROID) 137 mcg tablet Take 1 tablet by mouth daily before breakfast. - calcitriol (ROCALTROL) 0.25 mcg capsule Take 0.5 mcg by mouth. - calcium carbonate (OS-CORAL 500) 500 mg calcium (1,250 mg) tablet Take 2 tablets by mouth three times daily. - medroxyPROGESTERone (DEPO-PROVERA) 150 mg/mL injection Problem List As Of Date: 02/25/2024 (None) Encounter Status:Closed by FAM MONTES DE OCA on 02/27/24 Normal [facility] THYROGLOBULIN BY MASS SPECTR OMETRYon 01-14-2023 Thyroglobulin [Mass/Vol] <0.5 Low 1.3 - 31.8 ng/mL [facility] T4/THYROXINE BLOODon 023 T4 [Mass/Vol] 0.5 ug/dL Low 5.5 - 10.2 ug/dL [facility] TSH BLDon 01-10-2023 TSH Qn 2.240 m[IU]/L 0.510 - 4.300 mIU/L [facility] Pathology Reporton Pathology Report [id number]#1.00 CD:127 Normal [facility] IntraOperative Documentson 0 12-11-2022 IntraOperative Documents [id number]#1.00 CD:127 Normal [facility] CHEMISTRYOrdered By: SYSTEM SYSTEM on 12-08-2022 Calcium [Mass/Vol] 8.4 mg/dL Low 8.9 - 11. 1 mg/dL [facility] Remisol Calciumon 12-08-2022 Calcium [Mass/Vol] 8.4 mg/dL Low 8.9-11.1 [facility] Comment on above: Performed By: #### 2 [id number] #### [facility] Laboratory [address] [place] [address] Consent for Anesthesiaon Consent for Anesthesia [id number]#1.00 CD:127 Normal [facility] Discharge Instructionson Discharge Instructions [id number] D:127 Normal [facility] Discharge Note-Nursingon Discharge Note-Nursing IRLANDA MÁRQUEZALLIE Caldwell :2005 Visit Date:12/07/2022 Inpatient Discharge Instructions Your Care Team Admitting Physician - Yuliana Murillo MD Referring Physician - Yuliana Murillo MD Reason for Your Visit 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 Discharge Vitals Temperature (Oral) 36.5 ?C Heart Rate (Monitored) 68 Respiratory Rate 16 Blood Pressure 100/62 Height 171 cm Weight 70.5 kg What to do next Instructions From Your Doctor Event Name Event Result Discharge Activity Ambulate as tolerated Discharge Restrictions No driving for 24 hrs Discharge Diet(s) Regular Call Your Doctor For Redness, swelling, or pus at operative site Pending Diagnostic Test Results None Pharmacy Information Other: [facility] Discharge Instructions Keep neck dry 3 days. Antibiotic ointment to incision 2-3 times daily New Follow Up Appointments after Discharge Follow Up with Yuliana Murillo When: In 1 week 12/15/2022 EDT Comments: Call for appt Where: [address] [facility] [address] [place] [address]- Business (1) Follow Up with SHAIKH VALENTINE When: In 0 days Where: [address] [place] [address] [phone] Business (1) Medications What How Much When Why Instructions Next Dose Unchanged albuterol (albuterol HFA 90 mcg/ inh MDI) 2 Puffs Inhalation Every 4 hours as needed for Shortness of breath or wheezing Shortness of breath as directed 15 minutes before exercise use with spacer chamber NEEDED FOR SHORTNESS OF BREATH OR WHEEZING Unchanged ethinyl estradiol-levonorgestre l (Lutera) 1 Tablets By Mouth Every day 12/09 @ 9 AM Unchanged levothyroxine (levothyroxine 50 mcg (0.05 mg) Tab) 1 Tablets By Mouth Every day 12/09 @ 8 AM Unchanged Misc Prescription (MDI Spacer) See instructions Shortness of breath Use as directed NEEDED FOR SHORTNESS OF BREATH Test Results BMP Calcium Lvl: 8.4 mg/dL Low (12/08/22 05:55:00) Allergies No Known Allergies No Known Medication Allergies Problems Ongoing - Any problem that you are currently receiving treatment for. Anxiety Fatigue Shortness of breath TSH elevation Historical - Any problem that you are no longer receiving treatment for. Acute contact dermatitis Education Materials Thyroidectomy, Care After This sheet gives you information about how to care for yourself after your procedure. Your health care provider may also give you more specific instructions. If you have problems or questions, contact your health care provider. What can I expect after the procedure? After the procedure, it is common to have: ? Mild pain in the neck or upper body, especially when swallowing. ? A swollen neck. ? A sore throat. ? A weak or hoarse voice. ? Slight tingling or numbness around your mouth, or in your fingers or toes. This may last for a day or two after surgery. This condition is caused by low levels of calcium. You may be given calcium supplements to treat it. Follow these instructions at home: Medicines ? Take cjbj-abi-yxwozpd and prescription medicines only as told by your health care provider. ? Do not drive or use heavy machinery while taking prescription pain medicine. ? Do not take medicines that contain aspirin and ibuprofen until your health care provider says that you can. These medicines can increase your risk of bleeding. ? Take a thyroid hormone medicine as recommended by your health care provider. You will have to take this medicine for the rest of your life if your entire thyroid was removed. Eating and drinking ? Start slowly with eating. You may need to have only liquids and soft foods for a few days or as directed by your health care provider. ? To prevent or treat constipation while you are taking prescription pain medicine, your health care provider may recommend that you: ? Drink enough fluid to keep your urine pale yellow. ? Take faix-rvy-gyahkde or prescription medicines. ? Eat foods that are high in fiber, such as fresh fruits and vegetables, whole grains, and beans. ? Limit foods that are high in fat and processed sugars, such as fried and sweet foods. Incision care ? Follow instructions from your health care provider about how to take care of your incision. Make sure you: ? Wash your hands with soap and water before you change your bandage (dressing). If soap and water are not available, use hand digital asset manager. ? Change your dressing as told by your healt (more content not included)... Normal [facility] Inpatient Clinical Summaryon 12-08-2022 Inpatient Clinical Summary [place] [id number] Clinical Summary Person Information: Name: JEANNE MÁRQUEZ Age: 17 Years : 2005 Sex: Female PCP: SHAIKH GRIJALVA Marital Status: Single Race: White Ethnicity: Non- or Language: Kosovan Visit Id: Visit Reason: PIPILLARY THROID CARSANOMA Speciality: Acuity: Enc Type: Ambulatory/Same Day Surgery Med Service: Surgery Arrival: 12/07/2022 08:31:03 Discharge: Dispo Type: Address: [address] [place] [phone] Provider Notes: Diagnosis: Jose's thyroiditis; Papillary carcinoma of thyroid; Shortness of breath Problems Active Fatigue TSH elevation Anxiety Shortness of breath Smoking Status: Never Smoker Functional Status: Sensory Deficits: Other: none History of Falls: Mobility Assistance Prior to Admission: Independent ADLs: Independent Current Level of Assistance for Self-Care/Mobility: Cognitive Status: Allergies No Known Medication Allergies No Known Allergies Measurements: Height: 171 cm Weight: 70.5 kg Blood Pressure: 100 mmHg / 62 mmHg BMI: Procedures Thyroidectomy (12/05/2022) Immunizations No Immunizations Documented This Visit Final Med List: albuterol (albuterol HFA 90 mcg/inh MDI) 2 Puffs Inhalation every 4 hours as needed Shortness of breath or wheezing. as directed 15 minutes before exercise use with spacer chamber. Refills: 1. ethinyl estradiol-levonorgestre l (Lutera) 1 Tablets By Mouth every day. levothyroxine (levothyroxine 50 mcg (0.05 mg) Tab) 1 Tablets By Mouth every day. Misc Prescription (MDI Spacer) Use as directed. Refills: 0. Care Team Members: Attending Physician: Yuliana Murillo MD Consulting Physician: Referring Physician: Yuliana Murillo MD Follow up: With: Address: When: Yuliana Murillo [address] [place] [address] [address], [address] [place] [phone] Business (1) In 1 week 12/15/2022 Comments: Call for appt With: Address: When: SHAIKH VALENTINE [address] [place] [phone] Business (1) Patient Education Information: Normal [facility] Inpatient Patient Summaryon 12-08-2022 Inpatient Patient Summary [facility] [address] [place], [place] [address] Patient Discharge Instructions PERSON INFORMATION Name: JEANNE MÁRQUEZ Date of : 2005 Current Date: 12/08/2022 07:50:05 PHYSICIANS Admitting Physician: Yuliana Murillo MD Primary Care Physician: SHAIKH GRIJALVA PCP Phone Number: [phone] Comment: Discharge Diagnosis: Jose's thyroiditis; Papillary carcinoma of thyroid; Shortness of breath Condition at Discharge: Improved JEANNE MÁRQUEZ has been given the following list of follow-up instructions, prescriptions, and patient education materials: PATIENT FOLLOW-UP INFORMATION Diet: Regular Discharge Activity: Ambulate as tolerated Discharge Restrictions: No driving for 24 hrs Wound Care Instructions: Remove Your Dressing In Days Call Your Doctor For: Redness, swelling, or pus at operative site IF UNABLE TO CONTACT YOUR PHYSICIAN AND YOU FEEL IT IS AN EMERGENCY, GO TO THE NEAREST EMERGENCY ROOM OR CALL 911 Home Treatment: Other: none Devices/Equipment: None Special Services: Other: none Additional Instructions: Keep neck dry 3 days. Antibiotic ointment to incision 2-3 times daily Primary Care Physician to provide the following pending test results: None Follow up: With: Address: When: Yuliana Weinbergmarry [address] [place] [address] [address], [address] [place] [address] Business (1) In 1 week 12/15/2022 Comments: Call for appt With: Address: When: SHAIKH VALENTINE [address] [place], [place] [phone] Business (1) In the event that this physician does not participate in your insurance network, please consult with your insurance company to find a nearby participating provider. Comment: IYULISA ASPEN R, have received the attached patient education materials/instructions and have verbalized understanding: Patient Signature Date Clinican/Nurse Signature _ Date HERE ARE THE MEDICATION CHANGES THAT OCCURRED DURING YOUR HOSPITAL STAY Medications to Continue with No Changes Other Medications albuterol (albuterol HFA 90 mcg/inh MDI) 2 Puffs Inhalation every 4 hours as needed Shortness of breath or wheezing. as directed 15 minutes before exercise use with spacer chamber. Refills: 1. Last Dose: __Next Dose: __ ethinyl estradiol-levonorgestre l (Lutera) 1 Tablets By Mouth every day. Last Dose: __Next Dose: __ levothyroxine (levothyroxine 50 mcg (0.05 mg) Tab) 1 Tablets By Mouth every day. Last Dose: __Next Dose: __ Misc Prescription (MDI Spacer) Use as directed. Refills: 0. Last Dose: __Next Dose: __ Comment: MEDICATION LIST PROVIDED FOR YOU IS A LIST OF YOUR CURRENT MEDICATIONS. PLEASE CARRY THIS WITH YOU AT ALL TIMES. albuterol (albuterol HFA 90 mcg/inh MDI) 2 Puffs Inhalation every 4 hours as needed Shortness of breath or wheezing. as directed 15 minutes before exercise use with spacer chamber. Refills: 1. ethinyl estradiol-levonorgestre l (Lutera) 1 Tablets By Mouth every day. levothyroxine (levothyroxine 50 mcg (0.05 mg) Tab) 1 Tablets By Mouth every day. Misc Prescription (MDI Spacer) Use as directed. Refills: 0. Pharmacy Information: Other: [facility] Comment: PATIENT EDUCATION INFORMATION Instructions: Medication Leaflets: You may receive a survey from [employer] asking you to rate your care experience. Your feedback is important and will help us understand what we do well and how we can improve the quality of care we provide to you, your loved ones and our community. It?s an honor to serve you. Thank you for choosing [facility] Normal [facility] IntraOperative Documentson 0 12-08-2022 IntraOperative Documents [id number] CD:127 Normal [facility] Main OR Intraoperative Recor don 12-08-2022 Main OR Intraoperative Record IntraOp Document Type FT Summary Primary Physician: Yuliana Murillo MD Finalized Date/Time: 12/08/22 06:37:05 Pt. Name: YULISAJEANNE/Sex: 2005 Female Med Rec #: [id number] Physician: Yuliana Murillo MD Financial #: [id number] Pt. Type: A Room/Bed: [place] [address] Admit/Disch: 12/07/22 08:31:03 - Institution: Case Times FT Entry 1 Patient Times In Room 12/07/22 10:24:00 Out Room 12/07/22 12:59:00 Procedure Times Start 12/07/22 10:52:00 Stop 12/07/22 12:53:00 Anesthesia Times Start 12/07/22 10:24:00 Stop 12/07/22 12:59:00 Last Modified By: Lili Dodson RN 12/07/22 13:01:05 General Comments: 12/08/22 Chart opened to review and send charges LRoth CSFA Case Attendance FT Entry 1 Entry 2 Entry 3 Case Attendee Yuliana Murillo MD, DNP, ANIMAL RIDE MANAGER, Henry Rashid DO Role Performed Surgeon - Primary ANIMAL RIDE MANAGER Anesthesiologist of Record Time In 12/07/22 10:39:00 12/07/22 10:35:00 12/07/22 10:24:00 Time Out 12/07/22 12:59:00 12/07/22 12:59:00 12/07/22 10:38:00 Procedure THYROIDECTOMY(Left) THYROIDECTOMY(Left) THYROIDECTOMY(Left) Comments Dr. Porras supervisor nurse supervising. Out of room for break [phone] Last Modified By: Ivory RN, Lili Dodson RN, Lili Dodson RN, Lili Fowler 12/07/22 12:59:34 12/07/22 12:59:34 12/07/22 12:59:34 Entry 4 Entry 5 Entry 6 Case Attendee Rubi Mcmillan Jennifer E Saflund RN, Lili Fowler Role Performed Scrub - Primary Scrub - Primary Defensive Secondary Coach - Primary Time In 12/07/22 10:24:00 12/07/22 10:24:00 12/07/22 10:24:00 Time Out 12/07/22 12:59:00 12/07/22 12:00:00 12/07/22 12:59:00 Procedure THYROIDECTOMY(Left) THYROIDECTOMY(Left) THYROIDECTOMY(Left) Comments orientation. Out of preceptor preceptor. Out of room room for lunch for lunch [phone]. [id number]. Last Modified By: Ivory RN, Lili Dodson RN, Lili Dodson RN, Lili Fowler 12/07/22 12:59:34 12/07/22 12:59:34 12/07/22 12:59:34 Entry 7 Entry 8 Entry 9 Case Attendee Pedro Luis Li Ii ANIMAL RIDE MANAGER, Nneka Odom CST Role Performed Defensive Secondary Coach - Primary ANIMAL RIDE MANAGER STOCKHOLDER/SA Time In 12/07/22 10:24:00 12/07/22 10:24:00 12/07/22 10:24:00 Time Out 12/07/22 12:59:00 12/07/22 10:38:00 12/07/22 12:59:00 Procedure THYROIDECTOMY(Left) THYROIDECTOMY(Left) THYROIDECTOMY(Left) Comments orientation. Out of Dr. Porras Out of room for lunch room for lunch [phone] supervising. Break [phone] relief. Last Modified By: Ivory RN, Lili Dodson RN, Lili Dodson RN, Lili Fowler 12/07/22 12:59:34 12/07/22 12:59:34 12/07/22 12:59:34 Entry 10 Entry 11 Case Attendee Dianna HUSSEIN, Martinez Morrison Role Performed STOCKHOLDER/SA Scrub - Relief Time In 12/07/22 11:30:00 12/07/22 11:55:00 Time Out 12/07/22 12:10:00 12/07/22 12:37:00 Procedure THYROIDECTOMY(Left) THYROIDECTOMY(Left) Comments Lunch relief Lunch relief Last Modified By: Lili Dodson RN, RN, Olivia A 12/07/22 12:59:34 12/07/22 12:59:34 General Comments: Rubia Sharif, Nuvasive Rep, in attendance. TONY Chilelnetbackup administrator Protocols FT Pre-Care Text: Implements protective measures prior to operative or invasive procedure, confirms identity before the operative or invasive procedure, verifies operative procedure, surgical site, and laterality Entry 1 Procedure(s) THYROIDECTOMY(Left) Patient Identity Birthday, Blood Band, Verified (select at ID Band Check, Patient least 2): Participation Consents / H and P Anesthesia Consent, Operative Site Present Verified HandP, Surgery/Procedure Marking Verified Consent, Transfusion Consent Surgical Site Yes Laterality Verified Yes Verified Procedure Verified Yes Correct Patient Yes Position Verified Availability Equipment, Medication Prep Dry n/a Verified (If Applicable) PreOp Antibiotic Yes Time Out Yuliana Murillo MD, Given Participants Christopher WOOD, GEOVANNY, Queen Cristóbal, Rubi Mcmillan Francis, Jennifer E, Saflund RN, Guillermo Hackett Alfons Ii F Time Out Complete 12/07/22 10:51:00 Outcomes Met? Yes Last Modified By: Lili Dodson RN 12/07/22 10:58:46 Post-Care Text: The patient is free from signs and symptoms of injury caused by extraneous objects Allergy Information FT Pre-Care Text: Verifies allergies Entry 1 Allergies Reviewed? Yes Allergies Reviewed Self/Patient With Outcomes Met? Yes Last Modified By: Lili Dodson RN 12/07/22 11:07:52 Post-Care Text: The patient received appropriate medication(s) safely administered during the perioperative period Surgical Procedures FT Entry 1 Procedure Description Procedure THYROIDECTOMY Modifiers Left Surgeon Description LEFT COMPLETION THYROIDECTOMY Primary Procedure Yes Primary Surgeon Yuliana Murillo MD Start 12/07/22 10:59:00 Stop 12/07/22 12:53:00 Anesthesia Type General Surgical Service ENT Wound Class 1 - Clean Last Modified By: Ivory JIMENEZ, Lili Fowler 12/07/22 12:59:38 General (more content not included)... Normal [facility] Operative Reporton Operative Report SURGERY DATE: 12/07/2022 SPEECH LANGUAGE PATHOLOGIST ASSISTANT: Nneka Craig CST PREOPERATIVE DIAGNOSIS: Papillary carcinoma of the thyroid POSTOPERATIVE DIAGNOSIS: Papillary carcinoma of the thyroid OPERATION: Completion left total thyroidectomy ANESTHESIA: General endotracheal using a recurrent laryngeal nerve monitoring endotracheal tube FINDINGS: Fibrosis of the left thyroid to surrounding soft tissues consistent with patient's diagnosis of Jose's thyroiditis, otherwise slightly nodular left thyroid gland without any large discrete masses. COMPLICATIONS: None INDICATIONS: This 17-year-old young woman underwent a right hemithyroidectomy 16 days ago and was found to have papillary carcinoma of the thyroid. She presented today for completion thyroidectomy in anticipation of I-131 therapy at a later date. PROCEDURE: The patient identified in the Holding Area and taken back to the Operating Room where she was placed in a supine position. After induction of general endotracheal anesthesia using a recurrent laryngeal nerve monitoring tube, a shoulder roll was placed and the neck was prepped and draped in a sterile fashion. A 10 blade knife was made to use an incision through the patient's previous incision and using sharp and blunt dissection, the incision was opened past the platysma. Then using blunt finger dissection, the previous inferior and superior thyroid flaps were opened. A thyroid retractor was then put in position where the strap muscles had been reapproximated in the midline with interrupted Vicryl sutures. These sutures were cut exposing the trachea. The patient's left thyroid had been tagged with a Prolene suture to facilitate identification and the left thyroid was readily identified. The left strap muscles were then bluntly dissected away from the thyroid using a hemostat and harmonic scalpel. Attention was first turned to the superior thyroid. Using blunt dissection, the superior thyroid was carefully dissected and fibrous attachments transected using harmonic scalpel. The superior thyroid vessels were identified, hemoclipped and transected using harmonic scalpel freeing the superior pole. Once this accomplished, attention was turned to the inferior pole and again a subcapsular dissection was undertaken with harmonic scalpel being used to transect the fibrous and vascular attachments of the inferior thyroid. Then laterally blunt dissection was used to do a subcapsular dissection freeing the muscle attachments to the lateral thyroid. The gland was then rotated medially and dissection continued. There was considerable fibrosis of the overlying strap muscles to the thyroid requiring significant blunt dissection. The recurrent laryngeal nerve was identified electrically in the tracheoesophageal groove and the superior and inferior parathyroid glands were positively identified and carefully dissected away from the thyroid and their attachments transected with harmonic scalpel. The remainder of the gland was gradually dissected away from the surrounding soft tissues and eventually the trachea with the recurrent laryngeal nerve under continuous observation and testing being done to ensure that it was not inadvertently injured. Once the gland was removed from the trachea, the recurrent laryngeal nerve was once again stimulated proximally and found to be electrically intact. The wound was then copiously irrigated with normal saline. A #7 round J Luis-Hidalgo drain was placed through a stab incision in the sternal notch and the strap muscles were reapproximated with interrupted 3-0 Vicryl sutures. The skin was then closed with two deep interrupted 4-0 Vicryl suture layers and a running 5-0 Monocryl subcuticular stitch. A pressure dressing was then placed and the patient was awakened and taken to the Recovery Room in good condition. Yuliana Murillo Jr., M.D. Dictated: 12/07/2022 [id number] Transcribed: 12/07/2022 *Shaikh Valentine M.D. [facility] Comment on above: Result Comment: Elec tronically Signed By: Yuliana Murillo MD\gigi\Date and Time Signed: 12/08/22 07:24 EDT Preoperative Documentson Preoperative Documents [id number]#1.00 CD:127 [facility] Progress Note-Physicianon Progress Note-Physician ENT POD 1 Resting comfortably AVSS Drain 5cc AM Ca 8.4 Wound C/D/I Drain removed. D/C home [facility] Comment on above: Result Comment: Elec tronically Signed By: Yuliana Murillo MD\gigi\Date and Time Signed: 12/08/22 07:47 EDT B hCG Qualon 12-07-2022 Beta hCG Ql Negative Normal [facility] Comment on above: Performed By: #### 2 [id number] #### [facility] [address] [place] [address] CHEMISTRYOrdered By: Krista Miranda on 12-07-2022 Calcium [Mass/Vol] 9.0 mg/dL Normal 8.9 - 11. 1 mg/dL [facility] Remisol Calciumon 12-07-2022 Calcium [Mass/Vol] 9.0 mg/dL Normal 8.9-11.1 [facility] Comment on above: Performed By: #### 2 [id number] #### [facility] [address] [place] [address] Consent for Procedure/Surger yon 12-07-2022 Consent for Procedure/Surgery [id number]#1.00 CD:127 Normal [facility] Consent for Treatmenton 11-21 Consent for Treatment [id number]#1.00C D:127 Normal [facility] H&P Updateon 12-07-2022 H&P Update [id number]#[id number] CD:127 Normal [facility] Main OR PACU I Recordon 11-21 Main OR PACU I Record PACU Phase I Docum ent Type FT Summary Primary Physician: Yuliana Murillo MD Finalized Date/Time: 12/07/22 14:20:22 Pt. Name: JEANNE MÁRQUEZ/Sex: 2005 Female Med Rec #: [id number] Physician: Yuliana Murillo MD Financial #: [id number] Pt. Type: A Room/Bed: N318 Admit/Disch: 12/07/22 08:31:03 - Institution: Case Times PACU I FT Pre-Care Text: Identifies barriers to communication and implements measures to provide psychological support Develops individualized plan of care, and ensures continuity of care Maintains patient's dignity and privacy, and maintains patient confidentiality Identifies and reports philosophical, cultural, and spiritual beliefs and values Identifies individual values and wishes concerning care Implements aseptic technique, and administers prescribed antibiotic therapy and immunizing agents as ordered Evaluates postoperative tissue perfusion Implements thermoregulation measures, and monitors body temperature Evaluates postoperative respiratory status Evaluates postoperative cardiac status Evaluates postoperative neurological status Assesses pain control, collaborated in initiating patient-controlled analgesia and implements alternative methods of pain control Verifies allergies, administers prescribed medications and solutions, evaluates response to medications Entry 1 In PACU I 12/07/22 13:00:00 Discharge from PACU 12/07/22 13:42:00 I Outcomes Met? Yes Last Modified By: Verónica Vilchis RN 12/07/22 14:20:06 Post-Care Text: The patient demonstrates knowledge of the expected response to the operative or invasive procedure The patient's care is consistent with the individualized perioperative plan of care The patient's right to privacy is maintained The patient's value system, lifestyle, ethnicity, and culture are considered, respected, and incorporated into the perioperative plan of care The patient participates in decisions affecting his or her perioperative plan of care The patient is free from signs and symptoms of infection The patient has wound/tissue perfusion consistent with or improved from baseline levels established preoperatively The patient is at or returning to normothermia at the conclusion of the immediate postoperative period The patient's respiratory function is consistent with or improved from baseline levels established preoperatively The patient's cardiovascular status is consistent with or improved from baseline levels established preoperatively The patient's cardiovascular status is consistent with or improved from baseline levels established preoperatively The patient demonstrates and/or reports adequate pain control throughout the perioperative period The patient received appropriate medication(s), safely administered during the perioperative period Acuity Level PACU I FT Entry 1 Start Time 12/07/22 13:00:00 Stop Time 12/07/22 13:42:00 Acuity Level Acuity Level I Last Modified By: Verónica Vilchis RN 12/07/22 14:20:17 Finalized By: Verónica Vilchis RN Document Signatures Signed By: Veróncia Vilchis RN 12/07/22 14:20 Normal [facility] Main OR Preoperative Recordo n 12-07-2022 Main OR Preoperative Record PreOp Document Type FT Summary Primary Physician: Yuliana Murillo MD Finalized Date/Time: 12/07/22 11:19:17 Pt. Name: JEANNE MÁRQUEZ /Sex: 2005 Female Med Rec #: [id number] Physician: Yuliana Murillo MD Financial #: [id number] Pt. Type: A Room/Bed: [place] [address] Admit/Disch: 12/07/22 08:31:03 - Institution: Case Times PreOp FT Pre-Care Text: Verifies consent for planned procedure, identifies individual values and wishes concerning care, includes family members in perioperative teaching Entry 1 Patient Times. In Pre Surgery 12/07/22 08:30:00 Out Pre Surgery 12/07/22 10:22:00 Outcomes Met? Yes Last Modified By: Lili Dodson RN 12/07/22 11:19:14 Post-Care Text: The patient participates in decisions affecting his or her perioperative plan of care Finalized By: Lili Dodson RN Document Signatures Signed By: Lili Dodson RN 12/07/22 11:19 Normal [facility] Monitor Recordon 12-07-2022 Monitor Record [id number]#1.00 CD:127 Normal [facility] Monitor Record [id number]#1.00 CD:127 [facility] Progress Note-Physicianon Progress Note-Physician Patient: JEANNE MÁRQUEZ Age: 17 years Sex: Female : 2005 Associated Diagnoses: None Author: Henry Porras DO Postoperative Information Postoperative disposition: Postoperative disposition: To PACU. Optimetrix number: Optimetrix number [id number]. Anesthetic utilized: General. Health Status Allergies: Allergic Reactions (Selected) No Known Allergies No Known Medication Allergies Current medications: (Selected) Inpatient Medications Ordered Lactated Ringers IV Hattie 1000 mL 1,000 mL: 1,000 mL, IV, 150 mL/hr, Routine, Start date 12/07/22 8:30:00 EDT, 6.7 hour(s), Total volume (mL): 1,000, 70.5 kg, 1.84, m2 Pepcid 20 mg Tab: 20 mg = 1 tab(s), Tab, Oral, BID, Routine, Start date 12/07/22 21:00:00 EDT Phenergan 25 mg/mL Injection: 6.25 mg = 0.25 mL, Injection, IV, q6hr PRN Nausea/Vomiting, Routine, Start date 12/07/22 13:07:00 EDT, 12/07/22 13:07:00 EDT Tylenol 325 mg Tab: 650 mg = 2 tab(s), Tab, Oral, q4hr PRN Pain/Fever, Routine, Start date 12/07/22 13:07:00 EDT, 12/07/22 13:07:00 EDT Tylenol with Codeine 300 mg-30 mg Tab: 2 tab(s), Tab, Oral, q4hr PRN Pain, Routine, Start date 12/07/22 13:07:00 EDT Zofran 4 mg/2 mL Injection: 4 mg = 2 mL, Injection, IV, Once PRN Nausea/Vomiting, Routine, Start date 12/07/22 13:07:00 EDT, 12/07/22 13:07:00 EDT albuterol: 2.5 mg, 3 mL, Soln-Inh, Inhalation, q4hr PRN Shortness of breath or wheezing for 30 day(s), Stop date 01/06/23 13:15:00 EDT, Start date 12/07/22 13:16:00 EDT ampicillin-sulbactam additive + Sodium Chloride 0.9% intravenous solution 100 mL: 3 gram = 1 EA, IV Piggyback, q6hrFT, Routine, Start date 12/07/22 18:00:00 EDT, 200 mL/hr, Infuse over 30 minute(s) Prescriptions Prescribed MDI Spacer: MDI Spacer, See Instructions, 1 EA, 0, Use as directed, [employer] #72, Supply, 171, cm, 02/26/20 8:30:00 EST, Height/Length Dosing, 63.3, kg, 02/26/20 8:30:00 EST, Weight Dosing albuterol HFA 90 mcg/inh MDI: 2 puff(s), Inhalation, q4hr Shortness of breath or wheezing, 1 EA, Refill(s) 1, as directed 15 minutes before exercise use with spacer chamber, [employer] #72, 171, cm, 02/26/20 8:30:00 EST, Height/Length Dosing, 63.3, kg, 02/26/20 8:30... Documented Medications Documented Lutera: 1 tab(s), Oral, Daily, 56 tab(s), Refill(s) 0 levothyroxine 50 mcg (0.05 mg) Tab: 50 mcg = 1 tab(s), Oral, Daily, Thyroid, Home Medications (4) Active albuterol HFA 90 mcg/inh MDI 2 puff(s), PRN, Inhalation, q4hr levothyroxine 50 mcg (0.05 mg) Tab 50 mcg = 1 tab(s), Oral, Daily Lutera 1 tab(s), Oral, Daily MDI Spacer See Instructions Problem list: All Problems Anxiety / SNOMED CT 88976716 / Confirmed Asthma, unconfirmed / SNOMED CT 419498081 / Confirmed Fatigue / SNOMED CT 468266755 / Confirmed Hx of menorrhagia / SNOMED CT 133135432 / Confirmed Shortness of breath / SNOMED CT 672566269 / Confirmed TSH elevation / SNOMED CT 511838488 / Confirmed Resolved: Acute contact dermatitis / SNOMED CT 910849150 Resolved: Ovarian cyst rupture / SNOMED CT 450604624 Physical Examination Vital Signs 12/07/2022 14:15 EDT Heart Rate Monitored 82 bpm SpO2 97 % 12/07/2022 14:15 EDT Respiratory Rate 17 br/min 12/07/2022 14:15 EDT Temperature Axillary 36.4 DegC 12/07/2022 14:14 EDT Systolic Blood Pressure 116 mmHg Diastolic Blood Pressure 73 mmHg Mean Arterial Pressure, Monitered 87 mmHg 12/07/2022 13:38 EDT Temperature Temporal Artery 37.1 DegC Heart Rate Monitored 89 bpm Respiratory Rate Monitored 12 br/min Systolic Blood Pressure 116 mmHg Diastolic Blood Pressure 77 mmHg SpO2 97 % 12/07/2022 13:30 EDT Heart Rate Monitored 74 bpm Respiratory Rate Monitored 13 br/min Systolic Blood Pressure 113 mmHg Diastolic Blood Pressure 64 mmHg SpO2 97 % 12/07/2022 13:15 EDT Heart Rate Monitored 89 bpm Respiratory Rate Monitored 13 br/min Systolic Blood Pressure 117 mmHg Diastolic Blood Pressure 80 mmHg SpO2 96 % 12/07/2022 13:10 EDT Heart Rate Monitored 76 bpm Respiratory Rate Monitored 14 br/min Systolic Blood Pressure 123 mmHg Diastolic Blood Pressure 81 mmHg SpO2 99 % FIO2 40 % 12/07/2022 13:08 EDT Temperature Temporal Artery In Error DegC (In Error) Heart Rate Monitored In Error bpm (In Error) Respiratory Rate Monitored In Error br/min (In Error) Systolic Blood Pressure In Error mmHg (In Error) Diastolic Blood Pressure In Error mmHg (In Error) SpO2 In Error % (In Error) 12/07/2022 13:05 EDT Heart Rate Monitored 116 bpm HI Respiratory Rate Monitored 15 br/min Systolic Blood Pressure 123 mmHg Diastolic Blood Pressure 81 mmHg SpO2 100 % FIO2 40 % 12/07/2022 13:00 EDT Temperature Temporal Artery 37.0 DegC Heart Rate Monitored 115 bpm HI Respiratory Rate Monitored 19 br/min Systolic Blood Pressure 128 mmHg Diastolic Blood Pressure 91 mmHg HI SpO2 98 % FIO2 100 % % 12/07/2022 12:55 EDT Heart Rate Monitored 101 bpm bpm Respiratory Rate 14 br/min br/min SpO2 100 % % FIO2 100 (more content not included)... Normal [facility] Comment on above: Result Comment: Elec tronically Signed By: Henry Porras DO\.br\Date and Time Signed: 12/07/22 14:29 EDT Progress Note-Physician Patient: JEANNE MÁRQUEZ Age: 17 years Sex: Female : 2005 Associated Diagnoses: None Author: Henry Porras DO Preoperative Information Anesthesia history: Patient history: None. Family history+: None. Anesthesia results Informed consent: Signed by patient. Including risks, benefits, and alternatives related to the: Anesthetic plan, Postoperative pain management plan. Re-evaluation prior to induction: Henry Porras DO. Health Status Allergies: Allergic Reactions (Selected) No Known Allergies No Known Medication Allergies, Allergies (2) Active Reaction No Known Allergies None Documented No Known Medication Allergies None Documented Current medications: (Selected) Inpatient Medications Ordered Lactated Ringers IV Hattie 1000 mL 1,000 mL: 1,000 mL, IV, 150 mL/hr, Routine, Start date 08/17/23 8:30:00 EDT, 6.7 hour(s), Total volume (mL): 1,000, 70.5 kg, 1.84, m2 Prescriptions Prescribed MDI Spacer: MDI Spacer, See Instructions, 1 EA, 0, Use as directed, [employer] #72, Supply, 171, cm, 02/26/20 8:30:00 EST, Height/Length Dosing, 63.3, kg, 02/26/20 8:30:00 EST, Weight Dosing albuterol HFA 90 mcg/inh MDI: 2 puff(s), Inhalation, q4hr Shortness of breath or wheezing, 1 EA, Refill(s) 1, as directed 15 minutes before exercise use with spacer chamber, [employer] #72, 171, cm, 02/26/20 8:30:00 EST, Height/Length Dosing, 63.3, kg, 02/26/20 8:30... Documented Medications Documented Lutera: 1 tab(s), Oral, Daily, 56 tab(s), Refill(s) 0 levothyroxine 50 mcg (0.05 mg) Tab: 50 mcg = 1 tab(s), Oral, Daily, Thyroid, Home Medications (4) Active albuterol HFA 90 mcg/inh MDI 2 puff(s), PRN, Inhalation, q4hr levothyroxine 50 mcg (0.05 mg) Tab 50 mcg = 1 tab(s), Oral, Daily Lutera 1 tab(s), Oral, Daily MDI Spacer See Instructions , Medications (1) Active Scheduled: (0) Continuous: (1) Lactated Ringers 1,000 mL 1,000 mL, IV, 150 mL/hr PRN: (0) Problem list: All Problems Anxiety / SNOMED CT 25206678 / Confirmed Asthma, unconfirmed / SNOMED CT 718759999 / Confirmed Fatigue / SNOMED CT 236956022 / Confirmed Hx of menorrhagia / SNOMED CT 733841996 / Confirmed Shortness of breath / SNOMED CT 957541906 / Confirmed TSH elevation / SNOMED CT 303481255 / Confirmed Resolved: Acute contact dermatitis / SNOMED CT 656762344 Resolved: Ovarian cyst rupture / SNOMED CT 147940311, Active Problems (6) Anxiety Asthma, unconfirmed Fatigue Hx of menorrhagia Shortness of breath TSH elevation Histories Past Medical History: Resolved Acute contact dermatitis (673741186): Resolved. Family History: Anxiety Father Blood clot Grandparent (Paternal Grandmother) Ulcerative colitis Mother Dementia Grandparent (Paternal Grandfather) Cataract Grandparent (Maternal Grandfather) Rheumatoid arthritis Mother Grandparent (Maternal Grandmother) Hypothyroidism Mother Grandparent (Maternal Grandmother) Hypoglycemia Mother Grandparent (Maternal Grandmother) COPD Grandparent (Maternal Grandmother) Comments: 02/26/2020 8:44 MARIANNE GOMEZRuthann Was a smoker Grandparent (Maternal Grandfather) Pneumothorax Grandparent (Maternal Grandfather) Angina Grandparent (Maternal Grandmother) Hyperlipidemia Father Leukemia Grandparent (Paternal Grandfather) Raynaud disease Grandparent (Maternal Grandmother) ADHD (attention deficit hyperactivity disorder), inattentive type Father Lung cancer Grandparent (Maternal Grandfather) Arthritis Grandparent (Maternal Grandfather) Procedure history: Right Thyroidectomy (87513746) on 12/05/2022 at 17 Years. Social History Social & Psychosocial Habits Alcohol 11/13/2022 Risk Assessment: Denies Alcohol Use Substance Abuse 11/13/2022 Risk Assessment: Denies Substance Abuse Tobacco 11/03/2019 Concerns about tobacco use in household: No 03/02/2021 Risk Assessment: No Risk . Physical Examination Vital Signs 12/07/2022 8:55 EDT Heart Rate Monitored 63 bpm Systolic Blood Pressure 103 mmHg Diastolic Blood Pressure 66 mmHg Blood Pressure Location Left arm Mean Arterial Pressure, Monitered 78 mmHg 12/07/2022 8:53 EDT Heart Rate Monitored 58 bpm LOW SpO2 100 % 12/07/2022 8:53 EDT Apical Heart Rate 66 bpm 12/07/2022 8:52 EDT Respiratory Rate 20 br/min 12/07/2022 8:52 EDT Temperature Axillary 36.5 DegC 12/07/2022 8:52 EDT Systolic Blood Pressure 106 mmHg Diastolic Blood Pressure 70 mmHg Blood Pressure Location Right arm Mean Arterial Pressure, Monitered 82 mmHg Vital Signs (last 24 hrs) Last Charted Temp Axillary 36.5 DegC (DEC 07 08:52) Heart Rate Apical 66 bpm (DEC 07 08:53) SBP 103 mmHg (DEC 07 08:55) DBP 66 mmHg (DEC 07 08:55) SpO2 100 % (DEC 07 08:53) Weight 65.3 kg (DEC 07 09:05) Measurements from flowsheet : Measurements 12/07/2022 9:05 EDT Height/Length Measured 171 cm Hei (more content not included)... Normal [facility] Comment on above: Result Comment: Elec tronically Signed By: Henry Porras DO.br\Date and Time Signed: 12/07/22 10:05 EDT SEROLOGYOrdered By: Massiel Choi on 12-07-2022 Beta hCG Ql Negative (12/07/22 9:14 AM) Normal [facility] Man Sero Pathology Reporton 3 Pathology Report [id number]#1.00C D:127 Normal [facility] IntraOperative Documentson 0 11-27-2022 IntraOperative Documents [id number]#1.00C D:127 Normal [facility] Discharge Instructionson Discharge Instructions [id number]#[id number] CD:127 Normal [facility] Operative Reporton 3 Operative Report SURGERY DATE: 11/21/2022 PRIMARY CARE PHYSICIAN: Everardo Oviedo M.D., FAAP SPEECH LANGUAGE PATHOLOGIST ASSISTANT: Letitia Doherty R.N. PREOPERATIVE DIAGNOSIS: Right thyroid mass POSTOPERATIVE DIAGNOSIS: Right thyroid mass and anterior chamber cervical lymphadenopathy OPERATION: Right hemithyroidectomy and neck exploration ANESTHESIA: General endotracheal COMPLICATIONS: None FINDINGS: Multiple anterior compartment cervical lymph nodes which were sent for frozen section and found to be benign and a 2.5 cm right thyroid nodule. 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 INDICATIONS: This 17 year old woman presented with a fairly rapidly enlarging right thyroid mass. Fine needle aspiration was obtained which revealed atypia of undetermined significance. A repeat biopsy was performed for molecular genetic testing which revealed high risk genetic mutations. PROCEDURE: The patient identified in the Holding Area and taken back to the Operating Room where she was placed in the supine position. After induction of general endotracheal anesthesia a shoulder roll was placed and an 8 cm transverse incision was mapped out two fingerbreadths above the sternal notch following relaxed skin lines of tension. An incision was made with a 10 blade and dissection carried out through the platysma with electrocautery. Subplatysmal flaps were raised superiorly and inferiorly. A thyroid retractor was then put in position to expose the wound. Strap muscles were incised in the midline exposing the thyroid isthmus. The thyroid isthmus was bluntly dissected with a hemostat and transected with harmonic scalpel. The left root of the thyroid was tagged with a 4-0 Prolene suture to facilitate future identification should completion thyroidectomy be necessary. Attention was then turned to right thyroidectomy. The thyroid was grasped with two Allis' and the strap muscles were bluntly dissected off of the gland with a hemostat and harmonic scalpel. After completely elevating the strap muscles the fibrovascular attachments of the gland inferiorly were bluntly dissected and transected with harmonic scalpel. The superior pole was then bluntly dissected with a hemostat and the fascial attachments transected with harmonic scalpel. The superior thyroid vessels were then bluntly dissected, hemoclipped and transected with harmonic scalpel and then the gland was dissected laterally with the middle thyroid vein being transected with harmonic scalpel. The gland was then rotated medially and the superior and inferior parathyroid glands were readily identified in the tracheoesophageal groove and bluntly dissected away from the thyroid gland. The recurrent laryngeal nerve was identified through electrical stimulation and with the parathyroid gland safely dissected away from the thyroid the remainder of the fascial attachments to the trachea were bluntly dissected and transected with harmonic scalpel after verifying the position of the recurrent laryngeal nerve. The gland was then removed and sent for pathologic analysis and the recurrent laryngeal nerve was stimulated medially and found to be electrically intact. Frozen section revealed a follicular neoplasm favoring benign diagnosis and therefore the decision was made to proceed with only a right hemithyroidectomy. The wound was copiously irrigated. A #7 round J Luis-Hidalgo drain was placed through a stab incision in the sternal notch and the strap muscles were reapproximated in the midline with interrupted 3-0 Vicryl sutures. The skin was then closed with two deep 4-0 Vicryl suture layers in a running 5-0 Monocryl stitch. A pressure dressing was placed and the patient was awakened and taken to the Recovery Room in good condition. Yuliana Murillo Jr., M.D. Dictated: 11/21/2022 [id number] Transcribed: 11/22/2022 cc:Everardo Oviedo M.D., [facility] Comment on above: Result Comment: Elec tronically Signed By: Lidia OSEI, Yuliana Shaw\.br\Date and Time Signed: 11/23/22 08:45 EDT Consent for Anesthesiaon Consent for Anesthesia [id number]#[id number] CD:127 [facility] Inpatient Clinical Summaryon 11-22-2022 Inpatient Clinical Summary [place] [id number] Clinical Summary Person Information: Name: JEANNE MÁRQUEZ Age: 17 Years : 2005 Sex: Female PCP: SHAIKH GRIJALVA Marital Status: Single Race: White Ethnicity: Non- or Language: Kosovan Visit Id: Visit Reason: THYROID MASS RIGHT Speciality: Acuity: Enc Type: Observation Med Service: Surgery Arrival: 11/21/2022 11:31:10 Discharge: Dispo Type: Address: [address] [place] [id number] Provider Notes: Diagnosis: Shortness of breath Problems Active Fatigue TSH elevation Anxiety Shortness of breath Smoking Status: Functional Status: Sensory Deficits: History of Falls: Mobility Assistance Prior to Admission: ADLs: Independent Current Level of Assistance for Self-Care/Mobility: Cognitive Status: Oriented x 3 Allergies No Known Medication Allergies No Known Allergies Measurements: Height: Weight: 70.5 kg Blood Pressure: 111 mmHg / 66 mmHg BMI: Procedures No Procedures Documented Immunizations No Immunizations Documented This Visit Final Med List: albuterol (albuterol HFA 90 mcg/inh MDI) 2 Puffs Inhalation every 4 hours as needed Shortness of breath or wheezing. as directed 15 minutes before exercise use with spacer chamber. Refills: 1. ethinyl estradiol-levonorgestre l (Lutera) 1 Tablets By Mouth every day. levothyroxine (levothyroxine 50 mcg (0.05 mg) Tab) 1 Tablets By Mouth every day. Misc Prescription (MDI Spacer) Use as directed. Refills: 0. Care Team Members: Attending Physician: Yuliana Murillo MD Consulting Physician: Referring Physician: Yuliana Murillo MD Follow up: With: Address: When: Yuliana Murillo [address] [place] [address] Business (1) In 1 week 11/29/2022 With: Address: When: SHAIKH MOOSEDEEPIKAFredy [address] [place] [phone] Business (1) Patient Education Information: [facility] Inpatient Patient Summaryon 11-22-2022 Inpatient Patient Summary JEANNE MÁRQUEZ :2005 Visit Date:11/21/2022 Inpatient Discharge Instructions Your Care Team Admitting Physician - Yuliana Murillo MD Referring Physician - Yuliana Murillo MD Reason for Your Visit THYROID MASS RIGHT Your Diagnosis Shortness of breath Tests Performed Pathology Tissue Exam -- Results Pending -- Serum Qual UA With Cult Reflex Please visit your patient portal for your results or contact your primary care physician. This Is Your Medications List Misc Prescription (MDI Spacer) albuterol (albuterol HFA 90 mcg/inh MDI) ethinyl estradiol-levonorgestre l (Lutera) levothyroxine (levothyroxine 50 mcg (0.05 mg) Tab) Discharge Vitals Temperature (Axillary) 36.5 ?C Heart Rate (Monitored) 64 Respiratory Rate 12 Blood Pressure 111/66 Weight 70.5 kg What to do next Instructions From Your Doctor Event Name Event Result Discharge Activity Expect mild pain, Expect minimal amount of drainage and/or bleeding Discharge Restrictions No driving for 24 hrs Discharge Diet(s) Regular Call Your Doctor For Redness, swelling, or pus at operative site Pending Diagnostic Test Results None Pharmacy Information Other: [facility] Discharge Instructions Antibiotic ointment to incision 2-3 times dailyKeep neck dry until 8/6No strenuous activity New Follow Up Appointments after Discharge Follow Up with Yuliana Murillo When: In 1 week 11/29/2022 EDT Where: [address] [place] [address]- Business (1) Follow Up with SHAIKH VALENTINE When: In 0 days Where: [address] [place] [address] [phone] Business (1) Medications What How Much When Why Instructions Next Dose Unchanged albuterol (albuterol HFA 90 mcg/ inh MDI) 2 Puffs Inhalation Every 4 hours as needed for Shortness of breath or wheezing Shortness of breath as directed 15 minutes before exercise use with spacer chamber as needed Unchanged ethinyl estradiol-levonorgestre l (Lutera) 1 Tablets By Mouth Every day resume Unchanged levothyroxine (levothyroxine 50 mcg (0.05 mg) Tab) 1 Tablets By Mouth Every day resume Unchanged Misc Prescription (MDI Spacer) See instructions Shortness of breath Use as directed Test Results No qualifying data available. Allergies No Known Allergies No Known Medication Allergies Problems Ongoing - Any problem that you are currently receiving treatment for. Anxiety Fatigue Shortness of breath TSH elevation Historical - Any problem that you are no longer receiving treatment for. Acute contact dermatitis Education Materials Shortness of Breath, Adult Shortness of breath is when a person has trouble breathing or when a person feels like she or he is having trouble breathing in enough air. Shortness of breath could be a sign of a medical problem. Follow these instructions at home: Pollutants ? Do not use any products that contain nicotine or tobacco. These products include cigarettes, chewing tobacco, and vaping devices, such as e-cigarettes. This also includes cigars and pipes. If you need help quitting, ask your health care provider. ? Avoid things that can irritate your airways, including: ? Smoke. This includes campfire smoke, forest fire smoke, and secondhand smoke from tobacco products. Do not smoke or allow others to smoke in your home. ? Mold. ? Dust. ? Air pollution. ? Chemical fumes. ? Things that can give you an allergic reaction (allergens) if you have allergies. Common allergens include pollen from grasses or trees and animal dander. ? Keep your living space clean and free of mold and dust. General instructions ? Pay attention to any changes in your symptoms. ? Take tqic-del-qhsssft and prescription medicines only as told by your health care provider. This includes oxygen therapy and inhaled medicines. ? Rest as needed. ? Return to your normal activities as told by your health care provider. Ask your health care provider what activities are safe for you. ? Keep all follow-up visits. This is important. Contact a health care provider if: ? Your condition does not improve as soon as expected. ? You have a hard time doing your normal activities, even after you rest. ? You have new symptoms. ? You cannot walk up stairs or exercise the way that you normally do. Get help right away if: ? Your shortness of breath gets worse. ? You have shortness of breath when you are resting. ? You feel light-headed or you faint. ? You have a cough that is not controlled with medicines. ? You cough up blood. ? You have pain with breathing. ? You have pain in your chest, arms, shoulders, or abdomen. ? You have a fever. These symptoms may be an emergency. Get help right away. Call 911. ? Do not wait to see if the symptoms will go away. ? Do not drive yourself to the hospital. (more content not included)... Normal [facility] Inpatient Patient Summary [place] [id number] Patient Discharge Instructions PERSON INFORMATION Name: JEANNE MÁRQUEZ Date of : 2005 Current Date: 11/22/2022 07:23:12 PHYSICIANS Admitting Physician: Yuliana Murillo MD Primary Care Physician: SHAIKH GRIJALVA PCP Phone Number: [phone] Comment: Discharge Diagnosis: Shortness of breath Condition at Discharge: Improved JEANNE MÁRQUEZ has been given the following list of follow-up instructions, prescriptions, and patient education materials: PATIENT FOLLOW-UP INFORMATION Diet: Regular Discharge Activity: Expect mild pain, Expect minimal amount of drainage and/or bleeding Discharge Restrictions: No driving for 24 hrs Wound Care Instructions: Remove Your Dressing In Days Call Your Doctor For: Redness, swelling, or pus at operative site IF UNABLE TO CONTACT YOUR PHYSICIAN AND YOU FEEL IT IS AN EMERGENCY, GO TO THE NEAREST EMERGENCY ROOM OR CALL 911 Home Treatment: Devices/Equipment: Special Services: Additional Instructions: Antibiotic ointment to incision 2-3 times daily Keep neck dry until 11/26 No strenuous activity Primary Care Physician to provide the following pending test results: None Follow up: With: Address: When: [place] [address] Business (1) In 1 week 11/29/2022 With: Address: When: SHAIKH ARTIBRO [address] [place], [place] [id number] [phone] Business (1) In the event that this physician does not participate in your insurance network, please consult with your insurance company to find a nearby participating provider. Comment: YULISA Worrell ASPEN R, have received the attached patient education materials/instructions and have verbalized understanding: Patient Signature Date Clinican/Nurse Signature _ Date HERE ARE THE MEDICATION CHANGES THAT OCCURRED DURING YOUR HOSPITAL STAY Medications to Continue with No Changes Other Medications albuterol (albuterol HFA 90 mcg/inh MDI) 2 Puffs Inhalation every 4 hours as needed Shortness of breath or wheezing. as directed 15 minutes before exercise use with spacer chamber. Refills: 1. Last Dose: __Next Dose: __ ethinyl estradiol-levonorgestre l (Lutera) 1 Tablets By Mouth every day. Last Dose: __Next Dose: __ levothyroxine (levothyroxine 50 mcg (0.05 mg) Tab) 1 Tablets By Mouth every day. Last Dose: __Next Dose: __ Misc Prescription (MDI Spacer) Use as directed. Refills: 0. Last Dose: __Next Dose: __ Comment: MEDICATION LIST PROVIDED FOR YOU IS A LIST OF YOUR CURRENT MEDICATIONS. PLEASE CARRY THIS WITH YOU AT ALL TIMES. albuterol (albuterol HFA 90 mcg/inh MDI) 2 Puffs Inhalation every 4 hours as needed Shortness of breath or wheezing. as directed 15 minutes before exercise use with spacer chamber. Refills: 1. ethinyl estradiol-levonorgestre l (Lutera) 1 Tablets By Mouth every day. levothyroxine (levothyroxine 50 mcg (0.05 mg) Tab) 1 Tablets By Mouth every day. Misc Prescription (MDI Spacer) Use as directed. Refills: 0. Pharmacy Information: Other: [facility] Comment: PATIENT EDUCATION INFORMATION Instructions: Medication Leaflets: You may receive a survey from [employer] asking you to rate your care experience. Your feedback is important and will help us understand what we do well and how we can improve the quality of care we provide to you, your loved ones and our community. It?s an honor to serve you. Thank you for choosing [facility] Normal [facility] Interdisciplinary Note - Donald e Manageron 11-22-2022 Interdisciplinary Note - Transportation Planning Technician Pt is awake and alert in bed, previously rounded with ENT. Mom at bedside. Aware of DC order and plan to DC today. Observation status reviewed. Pt and mom decline any concerns or DC needs and mom will transport at DC. nursing updated. . PCP verified and insurance information reviewed and insurance information reviewed and DME discussed. Contact information provided and white board updated. [facility] Comment on above: Result Comment: Elec tronically Signed By: Gaby JIMENEZ, María Elena\.br\Date and Time Signed: 11/22/22 08:33 EDT IntraOperative Documentson 0 11-22-2022 IntraOperative Documents [id number]#1.00 CD:127 [facility] IntraOperative Documents [id number] CD:127 [facility] Main OR Intraoperative Recor don 11-22-2022 Main OR Intraoperative Record IntraOp Document Type FT Summary Primary Physician: Yuliana Murillo MD Finalized Date/Time: 11/22/22 10:22:25 Pt. Name: JEANNE MÁRQUEZ/Sex: 2005 Female Med Rec #: [id number] Physician: Yuliana Murillo MD Financial #: [id number] Pt. Type: A Room/Bed: [place] [address] Admit/Disch: 11/21/22 11:31:10 - 11/22/22 09:16:00 Institution: Case Times FT Entry 1 Patient Times In Room 11/21/22 12:50:00 Out Room 11/21/22 15:54:00 Procedure Times Start 11/21/22 13:25:00 Stop 11/21/22 15:45:00 Anesthesia Times Start 11/21/22 12:50:00 Stop 11/21/22 15:54:00 Last Modified By: Torri Schmidt 11/21/22 15:59:08 General Comments: 11/22/22 Chart opened to review and send charges [facility] CSFA Case Attendance FT Entry 1 Entry 2 Entry 3 Case Attendee Yuliana Murillo MD RN, Letitia Brock CRNA, Wendy Stephen Role Performed Surgeon - Primary ENERGY RISK MANAGEMENT ANALYST ANIMAL RIDE MANAGER Time In 11/21/22 12:50:00 11/21/22 12:50:00 11/21/22 12:50:00 Time Out 11/21/22 15:54:00 11/21/22 15:54:00 11/21/22 15:54:00 Procedure THYROIDECTOMY(Right), THYROIDECTOMY(Right), THYROIDECTOMY(Right), FROZEN SECTION(Right) FROZEN SECTION(Right) FROZEN SECTION(Right) Comments is supervising Last Modified By: Torri Schmidt Kelsie E Burgderfer, Kelsie E 11/21/22 15:59:10 11/21/22 15:59:10 11/21/22 15:59:10 Entry 4 Entry 5 Entry 6 Case Attendee Torri Schmidt CST, Gauri Oglesby Role Performed Defensive Secondary Coach - Primary Scrub - Primary Scrub - Primary Time In 11/21/22 12:50:00 11/21/22 12:50:00 11/21/22 12:50:00 Time Out 11/21/22 15:54:00 11/21/22 14:40:00 11/21/22 14:45:00 Procedure THYROIDECTOMY(Right), THYROIDECTOMY(Right), THYROIDECTOMY(Right), FROZEN SECTION(Right) FROZEN SECTION(Right) FROZEN SECTION(Right) Comments preceptor orientation Last Modified By: Torri Schmidt Kelsie E Burgderfer, Kelsie E 11/21/22 15:59:10 11/21/22 15:59:10 11/21/22 15:59:10 Entry 7 Entry 8 Entry 9 Case Attendee Benji Rice CST, Martinez Hines Role Performed Staff - Other Staff - Other Staff - Other Time In 11/21/22 12:50:00 11/21/22 12:50:00 11/21/22 12:50:00 Time Out 11/21/22 13:15:00 11/21/22 14:59:00 11/21/22 13:15:00 Procedure THYROIDECTOMY(Right), THYROIDECTOMY(Right), THYROIDECTOMY(Right), FROZEN SECTION(Right) FROZEN SECTION(Right) FROZEN SECTION(Right) Comments ASSISTING NEEDED 2ND SCRUB ASSISTING NEEDED Last Modified By: Torri Schmidt Kelsie E Burgderfer, Kelsie E 11/21/22 15:59:10 11/21/22 15:59:10 11/21/22 15:59:10 Entry 10 Entry 11 Case Attendee Satnam JIMENEZ, Martinez Cordon Role Performed Defensive Secondary Coach - Primary Scrub - Primary Time In 11/21/22 14:40:00 11/21/22 14:50:00 Time Out 11/21/22 14:50:00 11/21/22 15:54:00 Procedure THYROIDECTOMY(Right), THYROIDECTOMY(Right), FROZEN SECTION(Right) FROZEN SECTION(Right) Comments Last Modified By: Torri Schmidt Kelsie E 11/21/22 15:59:10 11/21/22 15:59:10 General Comments: JULIET BOSTON, NUVASIVE NERVE MONITORING REP, IN ATTENDANCE.TONY WAY. Perioperative Protocols FT Pre-Care Text: Implements protective measures prior to operative or invasive procedure, confirms identity before the operative or invasive procedure, verifies operative procedure, surgical site, and laterality Entry 1 Procedure(s) THYROIDECTOMY(Right), Patient Identity Birthday, ID Band FROZEN SECTION(Right) Verified (select at Check, Patient least 2): Participation Consents / H and P Anesthesia Consent, Operative Site Present Verified HandP, Surgery/Procedure Marking Verified Consent, Transfusion Consent Surgical Site Yes Laterality Verified Yes Verified Procedure Verified Yes Correct Patient Yes Position Verified Availability Equipment, Medication Prep Dry n/a Verified (If Applicable) PreOp Antibiotic Yes Time Out Lidia OSEI, Yuliana , Given Participants Chas JIMENEZ, Vinod Dong CRNA, Wendy Stephen, Torri Schmidt, Rafa HUSSEIN, Nano Jiménez Madison A Time Out Complete 11/21/22 13:19:00 Outcomes Met? Yes Last Modified By: Torri Schmidt 11/21/22 13:40:17 Post-Care Text: The patient is free from signs and symptoms of injury caused by extraneous objects Allergy Information FT Pre-Care Text: Verifies allergies Entry 1 Allergies Reviewed? Yes Allergies Reviewed Self/Patient With Outcomes Met? Yes Last Modified By: Torri Schmidt 11/21/22 13:30:36 Post-Care Text: The patient received appropriate medication(s) safely administered during the perioperative period Surgical Procedures FT Entry 1 Entry 2 Procedure Description Procedure THYROIDECTOMY FROZEN SECTION Modifiers Right Right Surgeon Description RIGHT HEMITHYROIDECTOMY RIGHT HEMITHYROIDECTOMY AND NECK EXPLORATION AND NECK EXPLORATION WITH FROZEN SECTION AND WITH FROZEN SECTION AND NERVE MONITORING NERVE AMNA (more content not included)... Normal [facility] Main OR PACU I [facility] Main OR PACU I Record PACU Phase I Docum ent Type FT Summary Primary Physician: Yuliana Murillo MD Finalized Date/Time: 11/22/22 11:08:39 Pt. Name: JEANNE MÁRQUEZ./Sex: 2005 Female Med Rec #: [id number] Physician: Yuliana Murillo MD Financial #: [id number] Pt. Type: A Room/Bed: [place] [address] Admit/Disch: 11/21/22 11:31:10 - 11/22/22 09:16:00 Institution: Case Times PACU I FT Pre-Care Text: Identifies barriers to communication and implements measures to provide psychological support Develops individualized plan of care, and ensures continuity of care Maintains patient's dignity and privacy, and maintains patient confidentiality Identifies and reports philosophical, cultural, and spiritual beliefs and values Identifies individual values and wishes concerning care Implements aseptic technique, and administers prescribed antibiotic therapy and immunizing agents as ordered Evaluates postoperative tissue perfusion Implements thermoregulation measures, and monitors body temperature Evaluates postoperative respiratory status Evaluates postoperative cardiac status Evaluates postoperative neurological status Assesses pain control, collaborated in initiating patient-controlled analgesia and implements alternative methods of pain control Verifies allergies, administers prescribed medications and solutions, evaluates response to medications Entry 1 In PACU I 11/21/22 15:55:00 Discharge from PACU 11/21/22 16:25:00 I Outcomes Met? Yes Last Modified By: Anupama Sales RN 11/21/22 16:50:50 Post-Care Text: The patient demonstrates knowledge of the expected response to the operative or invasive procedure The patient's care is consistent with the individualized perioperative plan of care The patient's right to privacy is maintained The patient's value system, lifestyle, ethnicity, and culture are considered, respected, and incorporated into the perioperative plan of care The patient participates in decisions affecting his or her perioperative plan of care The patient is free from signs and symptoms of infection The patient has wound/tissue perfusion consistent with or improved from baseline levels established preoperatively The patient is at or returning to normothermia at the conclusion of the immediate postoperative period The patient's respiratory function is consistent with or improved from baseline levels established preoperatively The patient's cardiovascular status is consistent with or improved from baseline levels established preoperatively The patient's cardiovascular status is consistent with or improved from baseline levels established preoperatively The patient demonstrates and/or reports adequate pain control throughout the perioperative period The patient received appropriate medication(s), safely administered during the perioperative period Acuity Level PACU I FT Entry 1 Start Time 11/21/22 15:55:00 Stop Time 11/21/22 16:25:00 Acuity Level Acuity Level I Last Modified By: Mónica JIMENEZ, Anupama 11/21/22 16:51:07 General Comments: 11/22/2022 0843hr Lluvia-op doc updated. TONY Phillips Finalized By: Kenisha Rodriguez I Document Signatures Signed By: Lisa Pat RN 11/22/22 08:44 Kenisha Rodriguez I 11/22/22 11:08 [facility] Outside Recordson 11-22-2022 Outside Records [id number] CD:127 Normal [facility] B hCG Qualon 11-21-2022 Beta hCG Ql Negative [facility] Comment on above: Performed By: #### 2 [id number] ####[facility] [id number] [place] [address] Consent for Procedure/Surger yon 11-21-2022 Consent for Procedure/Surgery [id number] D:127 [facility] Consent for Treatmenton Consent for Treatment [id number] D:127 [facility] H&P Updateon 11-21-2022 H&P Update [id number] D:127 Normal [facility] Main OR Preoperative Recordo n 11-21-2022 Main OR Preoperative Record PreOp Document Type FT Summary Primary Physician: Yuliana Murillo MD Finalized Date/Time: 11/21/22 13:32:47 Pt. Name: JEANNE MÁRQUEZ /Sex: 2005 Female Med Rec #: [id number] Physician: Yuliana Murillo MD Financial #: [id number] Pt. Type: A Room/Bed: [facility]04/23 Admit/Disch: 11/21/22 11:31:10 - Institution: Case Times PreOp FT Pre-Care Text: Verifies consent for planned procedure, identifies individual values and wishes concerning care, includes family members in perioperative teaching Entry 1 Patient Times. In Pre Surgery 11/21/22 11:45:00 Out Pre Surgery 11/21/22 12:48:00 Outcomes Met? Yes Last Modified By: Torri Schmidt 11/21/22 13:32:45 Post-Care Text: The patient participates in decisions affecting his or her perioperative plan of care Finalized By: Torri Schmidt Document Signatures Signed By: Torri Schmidt 11/21/22 13:32 Normal [facility] Monitor [facility] 11-21-2022 Monitor Record [id number] CD:127 Normal [facility] Monitor Record [id number]#1.00 CD:127 Normal [facility] Progress Note-Physicianon Progress Note-Physician Patient: JEANNE MÁRQUEZ Age: 17 years Sex: Female : 2005 Associated Diagnoses: None Author: Braxton OSEI, Phillip Mendoza Postoperative Information Postoperative disposition: Postoperative disposition: To PACU. Optimetrix number: Optimetrix number [id number]. Anesthetic utilized: General. Physical Examination Vital Signs 11/21/2022 16:05 EDT Heart Rate Monitored 113 bpm HI Respiratory Rate Monitored 14 br/min Systolic Blood Pressure 113 mmHg Diastolic Blood Pressure 91 mmHg HI Blood Pressure Location Right arm Mean Arterial Pressure, Cuff 98 mmHg SpO2 98 % 11/21/2022 16:00 EDT Heart Rate Monitored 110 bpm HI Respiratory Rate Monitored 12 br/min Systolic Blood Pressure 116 mmHg Diastolic Blood Pressure 70 mmHg Blood Pressure Location Right arm Mean Arterial Pressure, Cuff 85 mmHg SpO2 96 % 11/21/2022 15:55 EDT Temperature Temporal Artery 36.8 DegC Heart Rate Monitored 113 bpm HI Respiratory Rate Monitored 20 br/min (Modified) Systolic Blood Pressure 104 mmHg Diastolic Blood Pressure 51 mmHg LOW Blood Pressure Location Right arm Mean Arterial Pressure, Cuff 69 mmHg SpO2 97 % Pain Assessment: Pain Assessment 11/21/2022 16:05 EDT Numeric Pain Scale 0 = No pain . General: Awake, Alert, Appropriate. Respiratory: Adequate air exchange, Equal bilateral chest wall expansion. Cardiovascular: Stable. Neurological: At Baseline. Assessment Anesthetic outcome No anesthetic complications noted. Review / Management Condition: Stable. Plan Transfer/Discharge: Transfer/Discharge Discharge when meets criteria ( From PACU to floor ). Normal [facility] Comment on above: Result Comment: Elec tronically Signed By: Phillip Limon MD\.br\Date and Time Signed: 11/21/22 16:46 EDT Progress Note-Physician Patient: JEANNE MÁRQUEZ Age: 17 years Sex: Female : 2005 Associated Diagnoses: None Author: Phillip Limon MD Preoperative Information Anesthesia Preop Info: Time patient last ate or drank 11/21/2022 00:00:00. Anesthesia history: Patient history: None. Family history+: None. Informed consent: Signed by patient. Including risks, benefits, and alternatives related to the: Anesthetic plan. Re-evaluation prior to induction: Phillip Limon MD. Initial evaluation reviewed: No significant change. Review of Systems Eye: Negative. Ear/Nose/Mouth/Throat: Negative. Respiratory: Negative. Cardiovascular: Negative. Gastrointestinal: Negative. Genitourinary: Negative. Hematology/Lymphatics: Negative. Endocrine: Negative. Musculoskeletal: Negative. Neurologic: Negative. Health Status Allergies: Allergies (2) Active Reaction No Known Allergies None Documented No Known Medication Allergies None Documented Current medications: Home Medications (4) Active albuterol HFA 90 mcg/inh MDI 2 puff(s), PRN, Inhalation, q4hr levothyroxine 50 mcg (0.05 mg) Tab 50 mcg = 1 tab(s), Oral, Daily Lutera 1 tab(s), Oral, Daily MDI Spacer See Instructions , Medications (1) Active Scheduled: (0) Continuous: (1) Lactated Ringers 1,000 mL 1,000 mL, IV, 150 mL/hr PRN: (0) Problem list: All Problems Shortness of breath / SNOMED CT 510766335 / Confirmed Fatigue / SNOMED CT 159721349 / Confirmed Anxiety / SNOMED CT 95464288 / Confirmed TSH elevation / SNOMED CT 857040395 / Confirmed Asthma, unconfirmed / SNOMED CT 106604589 / Confirmed Hx of menorrhagia / SNOMED CT 226991482 / Confirmed Resolved: Acute contact dermatitis / SNOMED CT 983316589 Resolved: Ovarian cyst rupture / SNOMED CT 975909116, Active Problems (6) Anxiety Asthma, unconfirmed Fatigue Hx of menorrhagia Shortness of breath TSH elevation Histories Social History Social & Psychosocial Habits Alcohol 11/13/2022 Risk Assessment: Denies Alcohol Use Substance Abuse 11/13/2022 Risk Assessment: Denies Substance Abuse Tobacco 11/03/2019 Concerns about tobacco use in household: No 03/02/2021 Risk Assessment: No Risk . Physical Examination Vital Signs 11/21/2022 11:59 EDT Heart Rate Monitored 59 bpm LOW Systolic Blood Pressure 106 mmHg Diastolic Blood Pressure 69 mmHg Mean Arterial Pressure, Monitered 82 mmHg 11/21/2022 11:59 EDT Apical Heart Rate 62 bpm 11/21/2022 11:58 EDT Heart Rate Monitored 68 bpm SpO2 95 % 11/21/2022 11:58 EDT Temperature Axillary 36.3 DegC 11/21/2022 11:58 EDT Systolic Blood Pressure 103 mmHg Diastolic Blood Pressure 71 mmHg Mean Arterial Pressure, Monitered 82 mmHg 11/21/2022 11:58 EDT Respiratory Rate 18 br/min Airway: Mallampati classification: II (soft palate, fauces, uvula visible). Distance: Thyromental, Adequate. Respiratory: Lungs are clear to auscultation, Symmetrical chest wall expansion. Cardiovascular: Regular rhythm, Good pulses equal in all extremities. Gastrointestinal: Soft, Non-tender. Plan [place] [employer] Anesthesiologists (ASA) physical status classification: Class II. Anesthetic Preoperative Plan: Anesthesia General. Normal [facility] Comment on above: Result Comment: Elec tronically Signed By: Braxton OSEI, Phillip Mcdermott.br\Date and Time Signed: 11/21/22 12:40 EDT SEROLOGYOrdered By: Massiel Choi on 11-21-2022 Beta hCG Ql Negative (11/21/22 12:13 PM) Normal [facility] Man Sero UA With Cult Reflexon 2022 Bilirubin Ql (U) Negative Normal Negative [facility] Comment on above: Performed By: #### 1 [id number] #### [facility] [address] [place] [address] Clarity (U) CLEAR Normal Clear [facility] Comment on above: Performed By: #### 1 [id number] #### [facility] [address] [place] [address] Color (U) STRAW Abnormal Yellow [facility] Comment on above: Performed By: #### 1 [id number] #### [facility] [address] [place] [address] Crystals LM Ql (Urine sed) Present Normal [facility] Comment on above: Performed By: #### 1 [id number] #### [facility] [address] [place] [address] Epithelial cells.squamous LM.HPF (Urine sed) [#/Area] 0-2 Normal 0-2 [facility] Comment on above: Performed By: #### 1 [id number] #### [facility] [address] [place] [address] Glucose Test strip (U) [Mass/Vol] Negative Normal Negative [facility] Comment on above: Performed By: #### 1 [id number] #### [facility] [address] [place] [address] Hemoglobin Ql (U) Negative Normal Negative [facility] Comment on above: Performed By: #### 1 [id number] #### [facility] [address] [place] [address] Ketones (U) [Mass/Vol] Negative Normal Negative [facility] Comment on above: Performed By: #### 1 [id number] #### [facility] [address] [place] [address] Godfrey.plasma/Lithiu m.RBC (Bld) [Mass ratio] 0-3 Normal 0-3 [facility] Comment on above: Performed By: #### 1 [id number] #### [facility] [address] [place] [address] Mucus Ql (Urine sed) TRACE Normal [facility] Comment on above: Performed By: #### 1 [id number] #### [facility] [address] [place] [address] Nitrite Ql (U) Negative Normal Negative [facility] Comment on above: Performed By: #### 1 [id number] #### [facility] [address] [place] [address] pH (U) 6.5 [pH] Invalid Interpretation Code 5.0-9.0 [facility] Comment on above: Performed By: #### 1 [id number] #### [facility] [address] [place] [address] Protein (U) [Mass/Vol] Negative Normal Negative [facility] Comment on above: Performed By: #### 1 [id number] #### [facility] [address] [place] [address] Specific gravity (U) [Rel density] 1.010 Invalid Interpretation Code 1.005-1.030 [facility] Comment on above: Performed By: #### 1 [id number] #### [facility] [address] [place] [address] Type of Urine collection method [place] Normal [facility] Comment on above: Performed By: #### 1 [id number] #### [facility] [address] [place] [address] Urobilinogen Qn (U) 0.2 {Raghav'U}/dL Normal 0.0-1.0 [facility] Comment on above: Performed By: #### 1 [id number] #### [facility] [address] [place] [address] WBC Auto Ql (U) Negative Normal Negative [facility] Comment on above: Performed By: #### 1 [id number] #### [facility] [address] [place] [address] WBC LM.HPF (Urine sed) [#/Area] 0-5 Normal 0-5 [facility] Comment on above: Performed By: #### 1 [id number] #### [facility] [address] [place] [address] URINALYSISOrdered By: Jarod kidd on 11-21-2022 Bilirubin Ql (U) Negative (11/21/22 1:25 PM) Normal Negative [facility] UA Auto SS Clarity (U) Clear (11/21/22 1:25 PM) Normal Clear [facility] UA Auto SS Color (U) Straw *ABN* (11/21/22 1:25 PM) Invalid Interpretation Code Yellow [facility] UA Auto SS Crystals LM Ql (Urine sed) Present (11/21/22 1:25 PM) Normal [facility] UA Auto SS Epithelial cells.squamous LM.HPF (Urine sed) [#/Area] 0-2 /HPF Normal 0-2/HPF [facility] UA Aut o SS Glucose Test strip (U) [Mass/Vol] Negative (11/21/22 1:25 PM) Normal Negative [facility] UA Auto SS Hemoglobin Ql (U) Negative (11/21/22 1:25 PM) Normal Negative [facility] UA Auto SS Ketones (U) [Mass/Vol] Negative (11/21/22 1:25 PM) Normal Negative [facility] UA Auto SS Godfrey.plasma/Lithiu m.RBC (Bld) [Mass ratio] 0-3 /HPF Normal 0-3/HPF [facility] UA Auto SS Mucus Ql (Urine sed) Trace (11/21/22 1:25 PM) Normal [facility] UA Auto SS Nitrite Ql (U) Negative (11/21/22 1:25 PM) Normal Negative [facility] UA Auto SS pH (U) 6.5 *NA* (11/21/22 1:25 PM) Invalid Interpretation Code 5.0 - 9.0 [facility] Auto SS Protein (U) [Mass/Vol] Negative (11/21/22 1:25 PM) Normal Negative [facility] UA Auto SS Specific gravity (U) [Rel density] 1.010 *NA* (11/21/22 1:25 PM) Invalid Interpretation Code 1.005 - 1.030 [facility] UA Auto SS UA Spec Desc Hobbs (11/21/22 1:25 PM) Normal [facility] UA Auto SS Urobilinogen Qn (U) 0.7082163 {Raghav'U}/dL Normal 0.0 - 1.0 EU/dL [facility]A Auto SS WBC Auto Ql (U) Negative (11/21/22 1:25 PM) Normal Negative [facility] UA Auto SS WBC LM.HPF (Urine sed) [#/Area] 0-5 /HPF Normal 0-5/HPF [facility] UA Auto SS Auto Diffon 11-13-2022 Basophils/100 WBC (Bld) 0.9 % Normal 0.0-2.0 [facility] Comment on above: Order Comment: Order Added by Discern Expert. Performed By: #### 2 [id number], [id number], [id number] ####[facility] [address] [place] [address] Basophils/Leukocytes Auto (Bld) [Pure # fraction] 0.1 E9/L Normal 0.0-0.2 [facility] Comment on above: Order Comment: Order Added by Discern Expert. Performed By: #### 2 598230, [id number], [id number] ####[facility] [address] [place] [address] Eosinophils/100 WBC (Bld) 6.1 % Normal 0.0-8.0 [facility] Comment on above: Order Comment: Order Added by Discern Expert. Performed By: #### 2 257173, [id number], [id number] ####[facility] [address] [place] [address] Eosinophils/Leukocyte s Auto (Bld) [Pure # fraction] 0.6 E9/L High 0.0-0.5 [facility] Comment on above: Order Comment: Order Added by Discern Expert. Performed By: #### 2 872076, [id number], [id number] ####[address] [place] [address] Lymphocytes/100 WBC (Bld) 29.1 % Normal 14.0-50.0 [facility] Comment on above: Order Comment: Order Added by Discern Expert. Performed By: #### 2 996197, [id number], [id number] ####[address] [address] Lymphocytes/Leukocyte s Auto (Bld) [Pure # fraction] 2.8 E9/L Normal 1.0-4.0 [facility] Comment on above: Order Comment: Order Added by Jimy Expert. Performed By: #### 2 666529, [id number], [id number] ####[address] [address] Monocytes/100 WBC (Bld) 6.9 % Normal 4.0-14.0 [facility] Comment on above: Order Comment: Order Added by Jimy Expert. Performed By: #### 2 245057, [id number], 5065804 ####[address] [address] Monocytes/Leukocytes Auto (Bld) [Pure # fraction] 0.7 E9/L Normal 0.2-1.0 [facility] Comment on above: Order Comment: Order Added by Jimy Expert. Performed By: #### 2 062620, [id number], [id number] ####[address] [place] [address] Neutrophils/100 WBC (Bld) 57.0 % Normal 36.0-75.0 [facility] Comment on above: Order Comment: Order Added by Jimy Expert. Performed By: #### 2 182272, [id number], [id number] ####[address] [place] [address] Neutrophils/Leukocyte s Auto (Bld) [Pure # fraction] 5.4 E9/L Normal 2.0-7.5 [facility] Comment on above: Order Comment: Order Added by Discern Expert. Performed By: #### 2 161762, [id number], [id number] ####[address] [place] [address] CBC w/ Auto Diffon Erythrocyte distribution width (RBC) [Ratio] 13.2 % Normal 10.9-14.2 [facility] Comment on above: Performed By: #### 2 344882, [id number], 3012279 ####[address] [address] Hematocrit (Bld) [Volume fraction] 38.6 % Normal 34.0-46.0 [facility] Comment on above: Performed By: #### 2 803089, [id number], 1736443 ####[address] [address] Hemoglobin (Bld) [Mass/Vol] 13.4 g/dL Normal 12.0-16.0 [facility] Comment on above: Performed By: #### 2 324170, [id number], 5888714 ####[address] [address] MCH (RBC) [Entitic mass] 30.0 pg Normal 27.0-34.0 [facility] Comment on above: Performed By: #### 2 324206, [id number], 8425282 ####[address] [address] MCHC (RBC) [Mass/Vol] 34.8 g/dL Normal 31.4-36.0 [facility] Comment on above: Performed By: #### 2 825503, 15224935, 9298818 ####[address] [address] MCV (RBC) [Entitic vol] 86.2 fL Normal 80.0-100.0 [facility] Comment on above: Performed By: #### 2 060551, 24059277, 5302559 ####[facility] [address] [place] [address] Platelet mean volume (Bld) [Entitic vol] 9.7 fL Normal 6.4-10.8 [facility] Comment on above: Performed By: #### 2 163710, 80272358, 0768461 ####[address] [place] [address] Platelets (Bld) [#/Vol] 222.0 E9/L Normal 150.0-500.0 [facility] Comment on above: Performed By: #### 2 345516, [id number], 9103834 ####[address] [place] [address] RBC (Bld) [#/Vol] 4.5 E12/L Normal 4.3-5.9 [facility] Comment on above: Performed By: #### 2 820985, 30812359, 5617780 ####[address] [place] [address] WBC corrected for nucl RBC Auto (Bld) [#/Vol] 9.5 E9/L Normal 4.0-11.0 [facility] Comment on above: Performed By: #### 2 633074, 38432553, 2451523 ####[address] [place] [address] Calciumon 11-13-2022 Calcium [Mass/Vol] 9.3 mg/dL Normal 8.9-11.1 [facility] Comment on above: Performed By: #### 2 440496, 9551694, 2847745, [id number] #### [facility] [address] [place] [address] Consent for Treatmenton 10-22 Consent for Treatment [id number] D:127 Normal [facility] Magnesiumon 11-13-2022 Magnesium [Mass/Vol] 1.9 mg/dL Normal 1.3-2.4 [facility] Comment on above: Performed By: #### 2 520472, 3514591, 8352353, 8783706 #### [facility] [address] [place] [address] PT & PTTon 11-13-2022 aPTT Coag (PPP) [Time] 28.7 second(s) Normal 25.1-36.5 [facility] Comment on above: Result Comment: Para meter 15 days - 4 weeks 1 - 5 months 6 - 11 months 1 - 5 years 6 - 10 years 11 - 17 years PTT Mean: 35.4 (27.6-45.6) Mean: 33.5 (24.8-40.7) Mean: 32.4 (25.1-40.7) Mean: 31.6 (24.0-39.2) Mean: 31.6 (26.9-38.7) Mean: 31.0 (24.6-38.4) Pediatric Reference ranges were obtained from a study by luis Sena. prepared from 1437 samples obtained at 7 different centers using the same coagulation reagent and instrumentation as [facility]. Currently there are no coagulation studies available worldwide for children to 14 days, and no normal ranges. Heparin therapeutic range (represented by Anti-Factor Xa activity of 0.2 - 0.4 U/mL) corresponds to PTT of 56.6 - 109.0 sec. Performed By: #### 2 266770, [id number], [id number] ####[facility] [address] [place] [address] INR Coag (PPP) [Relative time] 1.0 {INR} Invalid Interpretation Code [facility] Comment on above: Result Comment: INR results are specifically intended to assess patients stabilized on long-term Anticoagulation therapy suggested INR?s ?Less Intensive Anticoagulation? 2.0 ? 3.0 Conventional Range 3.0 ? 4.5 Performed By: #### 2 278039, [id number], 1582066 ####[facility] [address] [place] [address] PT Coag (PPP) [Time] 11.4 second(s) Normal 9.4-12.5 [facility] Comment on above: Result Comment: 15 d ays - 4 weeks 1 - 5 months 6 -11 months 1- 5 years 6-10 years 11 -17 years Mean: 11.2 (9.5-12.6) Mean: 11.0 (9.7-12.8) Mean: 11.0 (9.8-13.0) Mean: 11.3 (9.9-13.4) Mean: 11.7 (10.0-14.6) Mean: 11.8 (10.0 - 14.1) Pediatric Reference ranges were obtained from a study by bijan Sena al. prepared from 1437 samples obtained at 7 different centers using the same coagulation reagent and instrumentation as [facility]. Currently there are no coagulation studies available worldwide for children to 14 days, and no normal ranges. Performed By: #### 2 235932, 54866486, 0933799 ####[facility] [address] [place] [address] Phosphoruson 11-13-2022 Phosphate [Mass/Vol] 3.4 mg/dL Normal 1.9-4.6 [facility] Comment on above: Performed By: #### 2 101204, 7601303, 8851151, 7894285 #### [facility] [address] [place] [address] TSHon 11-13-2022 TSH Qn 4.78 m[IU]/L Normal 0.34-5.60 [facility] Comment on above: Performed By: #### 2 835780, 2090211, 1060157, 6178470 ####[facility] [address] [place] [address] XR Chest 2 Viewson 3 XR Chest 2 Views Exam Date/Time: 11/13/2022 14:16 EDT Reason for Exam: P.A.T. Report IMPRESSION: NO EVIDENCE OF ACTIVE CHEST DISEASE. CLINICAL HISTORY: P.A.T.. COMMENT: The heart is normal in size. The mediastinum is unremarkable. The lungs appear clear. No infiltration nor pleural effusion is evident. Ordering Provider: Joyner Ahmad FINAL REPORT Dictated: 11/13/2022 3:08 pm Peña Bobby M.D. Signed (Electronic Signature): 11/13/2022 3:08 pm Signed by: Peña Bobby M.D. Transcribed by: ANGELES Technologist: LAUREN Technical Comments Radiation Dose: Ka,r in mGy = na DAP = na Normal [facility] Physician Orderon 11-10-2022 Physician Order [id number] CD:127 Normal [facility] US THYROID FN ASP BXon 08-02 US THYROID FN ASP BX Begin Addendum #1 COLLECTED DATE/TIME: 07/28/2022, 13:58 EDT Final Diagnosis Report for [facility] [place] [place] (A/B) RIGHT THYROID NODULE INFERIOR, FINE NEEDLE ASPIRATION: - ATYPIA OF UNDETERMINED SIGNIFICANCE, SEE NOTE. NOTE: Sparsely cellular aspirate compromised of follicular cells with cytologic atypia. Molecular testing or repeat aspirate may be helpful if clinically indicated. Original Report EXAMINATION: US THYROID FN ASP BX HISTORY: Thyroid nodule COMPARISON: Ultrasound thyroid 07/03/2022 TECHNIQUE: After obtaining informed consent, ultrasound-guided fine needle aspiration was performed in the usual sterile manner. FINDINGS: IMAGING: Ultrasound. BIOPSY NEEDLE: 25-gauge Senokot 3 separate passes LOCATION: Right lobe 2.4 cm heterogeneous mixed cystic and solid vascular nodule. SPECIMEN TYPE: Cellular tissue. LOCAL ANESTHETIC: Buffered Xylocaine. COMPLICATIONS: None. LABORATORY: Prepared slide smears and washings for cell block evaluation. OTHER: Negative. PATHOLOGY: Pending. An addendum will be added when results are available. IMPRESSION: 1. Uneventful ultrasound guided fine needle aspiration (FNA). 2. Pathology results are pending. Normal [facility] THYROID ANTIBODIESon 023 Thyroglobulin Antibody <1.0 Normal 0.0-0.9 [facility] Comment on above: Result Comment: Thyr oglobulin Antibody measured by Zing Methodology Performed By: #### T HYRABS #### [facility] [address] [place] [address] Dr. Claudia Castle Thyroid Peroxidase (TPO) Ab 182 IU/mL Critically high 0-26 [facility] Comment on above: Performed By: #### T HYRABS #### [facility] [address] [address] [address] Claudia Castle FREE T3on 07-03-2022 FREE T3 2.53 pg/mlL Critically low 2.91-4.70 [facility] Comment on above: Performed By: #### T SH, FT3 #### [facility] [address] [address] [address] Claudia Castle FREE T4on 07-03-2022 Free T4 [Mass/Vol] 0.73 ng/dL Critically low 0.78-1.34 [facility] Comment on above: Performed By: #### F T4 #### [facility] [address] [place] [address] Dr. Claudia Castle TSHon 07-03-2022 TSH 5.848 uIU/mL Critically high 0.516-4.130 [facility] Comment on above: Performed By: #### T SH, FT3 #### [facility] [address] [place] [address] Dr. Claudia Castle US THYROIDon 07-03-2022 US THYROID EXAMINATION: US THYR OID HISTORY: Simple goiter COMPARISON: No relevant comparison available. TECHNIQUE: Sonographic images of the thyroid gland were obtained. FINDINGS: The right thyroid lobe measures 6.2 x 2.3 x 2.1 cm. Very heterogeneous echotexture with lobular contour. Single solid nodule over 1 cm Nodule 1. 2.9 x 2.4 x 2.2 cm. Solid, hyperechoic, wide, smooth, punctate calcifications. TR 4 The thyroid isthmus measures 6.5 mm, heterogeneous. The left thyroid lobe measures 4.5 x 1.3 x 1.2 cm. Very heterogeneous echotexture with no focal nodules IMPRESSION: 2.9 cm right thyroid TR 4 nodules. Consider fine-needle aspiration TI-RADS: The [employer] TI-RADS committee's white paper recommendations for thyroid lesions classified as TR4 (moderately suspicious) are listed below: > 1.0 cm. Follow-up ultrasound in 1, 2, 3, and 5 years. > 1.5 cm. FNA. J. Am Yosvany Radiol 2017;14:587-595. Electronically authenticated by: GIULIANO WHITTAKER Date: 2022-07-03 12:50 Normal [facility] CBC AUTO DIFFon 04-19-2022 BASO # 0.1 103/ul Normal 0.0-0.1 [facility] Comment on above: Performed By: #### C BC #### [facility] [address] [address] [address] Claudia Castle Basophils/100 WBC (Bld) 0.8 % Normal 0.2-2.0 [facility] Comment on above: Performed By: #### C BC #### [facility] [address] [address] [address] Claudia Castle EO # 0.6 103/ul Normal 0.0-0.7 [facility] Comment on above: Performed By: #### C BC #### [facility] [address] [address] [address] Claudia Castle Eosinophils/100 WBC (Bld) 7.4 % Critically high 0.9-7.0 [facility] Comment on above: Performed By: #### C BC #### [facility] [address] [address] [address] Claudia Castle Erythrocyte distribution width (RBC) [Ratio] 12.2 % Normal 11.0-15.0 [facility] Comment on above: Performed By: #### C BC #### [facility] [address] [place] [address] Dr. Claudia Castle Hematocrit (Bld) [Volume fraction] 37.0 % Normal 36.0-48.0 [facility] Comment on above: Performed By: #### C BC #### [facility] [address] [address] [address] Claudia Castle Hemoglobin (Bld) [Mass/Vol] 12.8 g/dL Normal 12.0-16.0 [facility] Comment on above: Performed By: #### C BC #### [facility] [address] [address] [address] Claudia Castle IG # 0.01 10e3/ul Normal 0.00-0.03 [facility] Comment on above: Performed By: #### C BC #### [facility] [address] [place] [address] Dr. Claudia Castle IG % 0.1 % Normal 0.0-0.5 [facility] Comment on above: Performed By: #### C BC #### [facility] [address] [place] [address] Dr. Claudia Castle LYMPH # 2.5 103/ul Normal 1.2-3.8 [facility] Comment on above: Performed By: #### C BC #### [facility] [address] [place] [address] Dr. Claudia Castle Lymphocytes/100 WBC (Bld) 34.0 % Normal 20.5-60.0 [facility] Comment on above: Performed By: #### C BC #### [facility] [address] [place] [address] Dr. Claudia Castle MANUAL DIFF REQ NO Normal [facility] Comment on above: Performed By: #### C BC #### [facility] [address] [place] [address] Dr. Claudia Castle MCH (RBC) [Entitic mass] 29.4 pg Normal 26.7-34.0 [facility] Comment on above: Performed By: #### C BC #### [facility] [address] [place] [address] Dr. Clauida Castle MCHC (RBC) [Mass/Vol] 34.6 g/dL Normal 29.9-35.2 [facility] Comment on above: Performed By: #### C BC #### [facility] [address] [place] [address] Dr. Claudia Castle MCV (RBC) [Entitic vol] 85.1 fL Normal 81.0-99.0 [facility] Comment on above: Performed By: #### C BC #### [facility] [address] [place] [address] Dr. Claudia Castle MONO # 0.9 103/ul Critically high 0.3-0.8 [facility] Comment on above: Performed By: #### C BC #### [facility] [address] [place] [address] Dr. Claudia Castle Monocytes/100 WBC (Bld) 11.9 % Normal 1.7-12.0 [facility] Comment on above: Performed By: #### C BC #### [facility] [address] [place] [address] Dr. Claudia Castle NEUT # 3.4 103/ul Normal 1.4-6.5 [facility] Comment on above: Performed By: #### C BC #### [facility] [address] [place] [address] Dr. Claudia Castle Neutrophils/100 WBC (Bld) 45.8 % Normal 43.0-75.0 [facility] Comment on above: Performed By: #### C BC #### [facility] [address] [place] [address] Dr. Caludia Castle Platelet mean volume (Bld) [Entitic vol] 10.6 fL Normal 9.5-13.5 [facility] Comment on above: Performed By: #### C BC #### [facility] [address] [place] [address] Dr. Claudia Castle PLT 231 103/ul Normal 150-450 [facility] Comment on above: Performed By: #### C BC #### [facility] [address] [place] [address] Dr. Claudia Castle RBC 4.35 106/ul Normal 4.20-5.40 [facility] Comment on above: Performed By: #### C BC #### [facility] [address] [place] [address] Dr. Claudia Castle WBC 7.5 103/ul Normal 4.0-11.0 [facility] Comment on above: Performed By: #### C BC #### [facility] [address] [place] [address] Dr. Claudia Castle FREE T3on 04-19-2022 FREE T3 2.65 pg/mlL Critically low 2.91-4.70 [facility] Comment on above: Performed By: #### F T3, TSH #### [facility] [address] [address] [address] Claudia Castle TSHon 04-19-2022 TSH 2.363 uIU/mL Normal 0.516-4.130 [facility] Comment on above: Performed By: #### F T3, TSH #### [facility] [address] [address] [address] Claudia Castle Vital Signs Date Time Vital Sign Value Performing Clinician Facility 01-01-2025 11:51-0400 Body height 172.7 cm Shama Baring PA Work Phone: [facility] 01-01-2025 11:51-0400 Body mass index (BMI) [Ratio] 20.83 kg/m2 Shama Josefina PA Work Phone: [facility] 01-01-2025 11:51-0400 Body weight 62.14 kg Shama Baring PA Work Phone: [facility] 01-01-2025 11:51-0400 Diastolic blood pressure 68 mm[Hg] Shama Josefina PA Work Phone: [facility] 01-01-2025 11:51-0400 Systolic blood pressure 102 mm[Hg] Shama Josefina PA Work Phone: [facility] 11-10-2024 01:00-0400 Body height 170.18 cm Noemylor Ruiz [place] [facility] 11-10-2024 01:00-0400 Body mass index (BMI) [Ratio] 21.8 kg/m2 Noemy Ruiz IN [facility] 11-10-2024 01:00-0400 Body surface area Derived from formula 1.73 m2 Noemylor Ruiz IN [facility] 11-10-2024 01:00-0400 Body weight 63.05 kg Noemy Ruiz IN [facility] 11-10-2024 01:00-0400 Diastolic blood pressure 60 mm[Hg] Noemy Ruiz IN [facility] 11-10-2024 01:00-0400 Heart rate 73 /min Noemy Ruiz IN [facility] 11-10-2024 01:00-0400 Respiratory rate 16 /min Noemy Ruiz IN [facility] 11-10-2024 01:00-0400 SaO2% (BldA) [Mass fraction] 99 % Noemy Ruiz IN [facility] 11-10-2024 01:00-0400 Systolic blood pressure 102 mm[Hg] Noemy Ruiz IN [facility] 04-15-2024 10:09-0500 Body mass index (BMI) [Ratio] 22.48 kg/m2 JUAN CARLOS Singh MD Work Phone: [facility] 04-15-2024 10:09-0500 Body temperature 98.01 [degF] JUAN CARLOS Singh MD Work Phone: [facility] 04-15-2024 10:09-0500 Body weight 65.1 kg JUAN CARLOS Singh MD Work Phone: [facility] 04-15-2024 10:09-0500 Diastolic blood pressure 73 mm[Hg] JUAN CARLOS Singh MD Work Phone: [facility] 04-15-2024 10:09-0500 Heart rate 71 /min JUAN CARLOS Singh MD Work Phone: [facility] 04-15-2024 10:09-0500 Respiratory rate 16 /min JUAN CARLOS Singh MD Work Phone: [facility] 04-15-2024 10:09-0500 SaO2% (BldA) [Mass fraction] 100 % JUAN CARLOS Singh MD Work Phone: [facility] 04-15-2024 10:09-0500 Systolic blood pressure 104 mm[Hg] JUAN CARLOS Singh MD Work Phone: [facility] 01-09-2023 09:15-0400 Body height 170.2 cm JUAN CARLOS Singh MD Work Phone: [facility] 01-09-2023 09:15-0400 Body temperature 97.59 [degF] JUAN CARLOS Singh MD Work Phone: [facility] 01-09-2023 09:15-0400 Body weight 65.32 kg JUAN CARLOS Singh MD Work Phone: [facility] 01-09-2023 09:15-0400 Diastolic blood pressure 70 mm[Hg] JUAN CARLOS Singh MD Work Phone: [facility] 01-09-2023 09:15-0400 Heart rate 77 /min JUAN CARLOS Singh MD Work Phone: [facility] 01-09-2023 09:15-0400 Respiratory rate 16 /min JUAN CARLOS Singh MD Work Phone: [facility] 01-09-2023 09:15-0400 SaO2% (BldA) [Mass fraction] 99 % JUAN CARLOS Singh MD Work Phone: [facility] 01-09-2023 09:15-0400 Systolic blood pressure 104 mm[Hg] JUAN CARLOS Singh MD Work Phone: [facility] 12-08-2022 08:45-0400 Hourly Rounding Yuliana Timmis [facility] 12-08-2022 08:45-0400 Promise to Return Yuliana Timmis [facility] 12-08-2022 08:24-0400 Heart rate 74 /min Yuliana Timmis [facility] 12-08-2022 08:24-0400 SaO2% (BldA) [Mass fraction] 98 % Yuliana Timmis [facility] 12-08-2022 08:24-0400 Respiratory rate 18 /min Yuliana Timmis [facility] 12-08-2022 08:23-0400 Diastolic blood pressure 69 mm[Hg] Yuliana Timmis [facility] 12-08-2022 08:23-0400 Mean blood pressure 80 mm[Hg] Yuliana Timmis [facility] 12-08-2022 08:23-0400 Systolic blood pressure 104 mm[Hg] Yuliana Timmis [facility] 12-08-2022 08:23-0400 Body temperature 98.24 [degF] Yuliana Timmis [facility] 12-08-2022 07:00-0400 Hourly Rounding Yuliana Timmis [facility] 12-08-2022 07:00-0400 Promise to Return Yuliana Timmis [facility] 12-08-2022 06:00-0400 Hourly Rounding Yuliana Timmis [facility] 12-08-2022 06:00-0400 Promise to Return Yuliana Timmis [facility] 12-08-2022 05:00-0400 weight 1.02 Yuliana Timmis [facility] Comment on above: Result Comment: ^~:!ZScore Source -[facility] 12-08-2022 05:00-0400 Weight Percentile 84.59 % Yuliana Timmis [facility] Comment on above: Result Comment: ^~:!Percentile Source -[facility] 12-08-2022 00:00-0400 Blood Pressure Location Yuliana Timmis [facility] 12-08-2022 00:00-0400 Diastolic blood pressure 62 mm[Hg] Yuliana Timmis [facility] 12-08-2022 00:00-0400 Heart rate 68 /min Yuliana Timmis [facility] 12-08-2022 00:00-0400 Mean blood pressure 75 mm[Hg] Yuliana Timmis [facility] 12-08-2022 00:00-0400 Respiratory rate 16 /min Yuliana Timmis [facility] 12-08-2022 00:00-0400 SaO2% (BldA) [Mass fraction] 99 % Yuliana Timmis [facility] 12-08-2022 00:00-0400 Systolic blood pressure 100 mm[Hg] Yuliana Timmis [facility] 12-07-2022 19:00-0400 Diastolic blood pressure 64 mm[Hg] Yuliana Timmis [facility] 12-07-2022 19:00-0400 Heart rate 88 /min Yuliana Timmis [facility] 12-07-2022 19:00-0400 SaO2% (BldA) [Mass fraction] 98 % Yuliana Timmis [facility] 12-07-2022 19:00-0400 Systolic blood pressure 106 mm[Hg] Yuliana Timmis [facility] 12-07-2022 16:46-0400 Mean blood pressure 73 mm[Hg] Yuliana Timmis [facility] 12-07-2022 14:15-0400 Body temperature 97.52 [degF] Yuliana Timmis [address] [place] [address] 12-07-2022 14:14-0400 Mean blood pressure 87 mm[Hg] Yuliana Timmis [facility] 12-07-2022 13:38-0400 Body temperature 98.78 [degF] Yuliana Timmis [facility] 12-07-2022 13:38-0400 Respiratory rate 12 /min Yuliana Timmis [facility] 12-07-2022 13:30-0400 Respiratory rate 13 /min Yuliana Timmis [facility] 12-07-2022 13:15-0400 Respiratory rate 13 /min Yuliana Timmis [facility] 12-07-2022 13:10-0400 FIO2 40 % Yuliana Timmis [facility] 12-07-2022 13:05-0400 FIO2 40 % Yuliana Timmis [facility] 12-07-2022 13:00-0400 Body temperature 98.6 [degF] Yuliana Timmis [facility] 12-07-2022 13:00-0400 FIO2 100 % Yuliana Timmis [facility] 12-07-2022 09:05-0400 Height/Length Percentile 88.31 Yuliana Timmis [facility] Comment on above: Result Comment: ^~:!Percentile Source -[facility] 12-07-2022 09:05-0400 Height/Length Z-Score 1.19 Yuliana Timmis [facility] Comment on above: Result Comment: ^~:!ZScore Source -[facility] 12-07-2022 09:05-0400 weight 0.66 Yuliana Timmis [facility] Comment on above: Result Comment: ^~:!ZScore Source -[facility] 12-07-2022 09:05-0400 Weight Percentile 74.45 % Yuliana Timmis [facility] Comment on above: Result Comment: ^~:!Percentile Source -[facility] 12-07-2022 08:53-0400 Heart rate 66 /min Yuliana Timmis [facility] 12-07-2022 08:52-0400 Body temperature 97.7 [degF] Yuliana Timmis [facility] 11-22-2022 08:34-0400 Hourly Rounding Yuliana Timmis [facility] 11-22-2022 08:34-0400 Promise to Return Yuliana Timmis [facility] 11-22-2022 08:20-0400 Hourly Rounding Yuliana Timmis [facility] 11-22-2022 08:20-0400 SaO2% (BldA) [Mass fraction] 100 % Yuliana Timmis [facility] 11-22-2022 07:52-0400 Hourly Rounding Yuliana Timmis [facility] 11-22-2022 07:52-0400 Promise to Return Yuliana Timmis [facility] 11-22-2022 07:39-0400 Heart rate 57 /min Yuliana Timmis [facility] 11-22-2022 07:39-0400 SaO2% (BldA) [Mass fraction] 100 % Yuliana Timmis [facility] 11-22-2022 07:39-0400 Diastolic blood pressure 70 mm[Hg] Yuliana Timmis [facility] 11-22-2022 07:39-0400 Mean blood pressure 84 mm[Hg] Yuliana Timmis [facility] 11-22-2022 07:39-0400 Systolic blood pressure 111 mm[Hg] Yuliana Timmis [facility] 11-22-2022 07:38-0400 Body temperature 97.88 [degF] Yuliana Timmis [facility] 11-22-2022 06:00-0400 Promise to Return Yuliana Timmis [facility] 11-22-2022 05:00-0400 weight 1.03 Yuliana Timmis [facility] Comment on above: Result Comment: ^~:!ZScore Source -[facility] 11-22-2022 05:00-0400 Weight Percentile 84.74 % Yuliana Timmis [facility] Comment on above: Result Comment: ^~:!Percentile Source -[facility] 11-22-2022 04:30-0400 Body temperature 97.7 [degF] Yuliana Timmis [facility] 11-22-2022 04:30-0400 Diastolic blood pressure 66 mm[Hg] Yuliana Timmis [facility] 11-22-2022 04:30-0400 Heart rate 64 /min Yuliana Timmis [facility] 11-22-2022 04:30-0400 SaO2% (BldA) [Mass fraction] 100 % Yuliana Timmis [facility] 11-22-2022 04:30-0400 Systolic blood pressure 111 mm[Hg] Yuliana Timmis [facility] 11-21-2022 23:46-0400 Body temperature 98.06 [degF] Yuliana Timmis [facility] 11-21-2022 23:46-0400 Diastolic blood pressure 64 mm[Hg] Yuliana Timmis [facility] 11-21-2022 23:46-0400 Heart rate 79 /min Yuliana Timmis [facility] 11-21-2022 23:46-0400 Systolic blood pressure 106 mm[Hg] Yuliana Timmis [facility] 11-21-2022 19:58-0400 Mean blood pressure 74 mm[Hg] Yuliana Timmis [facility] 11-21-2022 16:25-0400 Blood Pressure Location Yuliana Timmis [facility] 11-21-2022 16:25-0400 Body temperature 97.16 [degF] Yuliana Timmis [facility] 11-21-2022 16:25-0400 Mean blood pressure 90 mm[Hg] Yuliana Timmis [facility] 11-21-2022 16:25-0400 Respiratory rate 12 /min Yuliana Timmis [facility] 11-21-2022 16:10-0400 Mean blood pressure 86 mm[Hg] Yuliana Timmis [facility] 11-21-2022 16:10-0400 Respiratory rate 16 /min Yuliana Timmis [facility] 11-21-2022 16:05-0400 Mean blood pressure 98 mm[Hg] Yuliana Timmis [facility] 11-21-2022 16:05-0400 Respiratory rate 14 /min Yuliana Timmis [facility] 11-21-2022 15:55-0400 Body temperature 98.24 [degF] Yuliana Timmis [facility] 11-21-2022 15:50-0400 Respiratory rate 13 /min Yuliana Timmis [facility] 11-21-2022 15:45-0400 Respiratory rate 10 /min Yuliana Timmis [facility] 11-21-2022 15:40-0400 Respiratory rate 10 /min Yuliana Timmis [facility] 11-21-2022 11:59-0400 Mean blood pressure 82 mm[Hg] Yuliana Timmis [facility] 11-21-2022 11:59-0400 Heart rate 62 /min Yuliana Timmis [facility] 10-17-2022 11:20-0400 Body height 172.72 cm Kerry Chavarria Other [facility] [employer] Other 10-17-2022 11:20-0400 Body mass index (BMI) [Ratio] 21.74 kg/m2 Kerry Chavarria Other [facility] Other 10-17-2022 11:20-0400 Body temperature 98.2 [degF] Kerry Chavarria Other [facility] Other 10-17-2022 11:20-0400 Body weight 64.86 kg Kerry Chavarria Other [facility] Other 10-17-2022 11:20-0400 Diastolic blood pressure 61 mm[Hg] Kerry Chavarria Other [facility] Other 10-17-2022 11:20-0400 Respiratory rate 18 /min Kerry Haroley Other [facility] Other 10-17-2022 11:20-0400 SaO2% (BldA) [Mass fraction] 99 % Kerry Chavarria Other [facility] Other 10-17-2022 11:20-0400 Systolic blood pressure 105 mm[Hg] Kerry Chavarria Other [facility] Other Encounters Encounter Date Encounter Type Care Provider Facility Start: 01-01-2025 End: 01-01-2025 Bamboo flowsheet Shama PEREZ Work Phone: [facility] Start: 01-01-2025 End: 01-01-2025 Bamboo flowsheet Shama PEREZ Work Phone: [facility] Start: 01-01-2025 End: 01-01-2025 Patient encounter procedure Shama PEREZ Work Phone: [facility] Start: 01-01-2025 End: 01-01-2025 Periodic preventive med est patient 18-39 yrs Shama PEREZ Work Phone: [facility] Comment on above: Well woman exam with routine gynecological exam Start: 11-10-2024 General examination of patient Noemy Ruiz [place] [facility] Start: 11-10-2024 Noemy Ruiz [facility] Start: 09-23-2024 End: 09-24-2024 ambulatory Debbi Singh MD Work Phone: Radiation Oncology Comment on above: Thyroid cancer (HCC) (Primary Dx) Start: 09-23-2024 End: 09-24-2024 Telemedicine consultation with patient Debbi Singh MD Work Phone: Radiation Oncology Start: 09-23-2024 End: 09-24-2024 ambulatory Debbi SINGH Facility:[facility] Start: 09-12-2024 End: 09-12-2024 ambulatory JUAN CARLOS SAMANTHA Facility:[facility] Start: 08-19-2024 ambulatory Debbi NATE SINGH Facil ity:[facility] Start: 08-18-2024 End: 08-19-2024 Telephone encounter Debbi Singh MD Work Phone: Radiation Oncology Comment on above: Appointment Start: 06-23-2024 End: 07-07-2024 Telephone encounter Debbi Singh MD Work Phone: Radiation Oncology Comment on above: Future Appointment Start: 06-19-2024 End: 06-19-2024 ambulatory Debbi Singh MD Work Phone: Radiation Oncology Comment on above: Thyroid cancer (HCC) (Primary Dx) Start: 06-19-2024 End: 06-19-2024 Telemedicine consultation with patient Debbi Singh MD Work Phone: Radiation Oncology Start: 06-05-2024 End: 06-05-2024 ambulatory Debbi SINGH Facility:[facility] Start: 05-07-2024 End: 05-08-2024 Refill Debbi Singh MD Work Phone: Radiation Oncology Comment on above: Med Change Request Start: 04-15-2024 End: 04-15-2024 ambulatory Debbi SINGH Facility:[facility] Start: 04-15-2024 End: 04-15-2024 Patient encounter procedure Debbi Singh MD Work Phone: Radiation Oncology Comment on above: Thyroid cancer (HCC) (Primary Dx) Start: 04-14-2024 End: 04-14-2024 Refill Debbi Singh MD Work Phone: Radiation Oncology Comment on above: Refill Request Start: 04-07-2024 End: 04-07-2024 ambulatory JUAN CARLOS MENDIOLAPaulette Facility:[facility] Start: 04-01-2024 End: 04-02-2024 Telephone encounter Debbi Singh MD Work Phone: Radiation Oncology Comment on above: Lab Orders Start: 02-25-2024 End: 02-27-2024 Telephone encounter Debbi Singh MD Work Phone: Radiation Oncology Comment on above: Appointment Start: 10-29-2023 Refill Debbi yusuf MD Work Phone: Radiation Oncology Comment on above: Refill Request Start: 10-23-2023 End: 10-24-2023 ambulatory Debbi Singh MD Work Phone: Radiation Oncology Comment on above: Thyroid cancer (HCC) (Primary Dx) Start: 10-23-2023 End: 10-24-2023 Telemedicine consultation with patient Debbi Singh MD Work Phone: Radiation Oncology Start: 06-13-2023 Telephone encounter Debbi Singh MD Work Phone: Cancer [facility] Comment on above: Appointment Confirma tion Start: 06-12-2023 End: 06-12-2023 ambulatory Debbi Singh MD Work Phone: Radiation Oncology Comment on above: Thyroid cancer (HCC) (Primary Dx) Start: 06-12-2023 End: 06-12-2023 Telemedicine consultation with patient Debbi Singh MD Work Phone: [facility] Start: 06-04-2023 Telephone encounter Debbi Singh MD Work Phone: Radiation Oncology Comment on above: Future Appointment Start: 02-10-2023 Refill Debbi yusuf MD Work Phone: Radiation Oncology Comment on above: Med Change Request Start: 01-09-2023 End: 01-09-2023 Patient encounter procedure Debbi Singh MD Work Phone: Radiation Oncology Comment on above: Thyroid cancer (HCC) (Primary Dx) Start: 12-07-2022 End: 12-08-2022 ambulatory Yuliana Weinbergs Facility:[facility] Start: 12-07-2022 End: 12-08-2022 Admission to same day surgery center Yuliana Weinbergs [facility] Start: 11-21-2022 End: 11-22-2022 ambulatory Yuliana Meansmis Facility:[facility] Start: 11-21-2022 End: 11-22-2022 Admission to same day surgery center Yuliana Weinbergs [facility] Start: 11-13-2022 End: 11-14-2022 ambulatory Yuliana Weinbergs Facility:[facility] Start: 10-17-2022 (URG) Urgent Care Visit [facility] Start: 10-17-2022 End: 10-17-2022 ambulatory Kerry Chavarria Other [facility] [employer] [facility] Other Start: 07-28-2022 End: 07-28-2022 ambulatory SHAIKH Valeria GRIJALVA Facility:[facility] Start: 07-03-2022 End: 07-04-[address] GIULIANO WHITTAKER Facility:[facility] Start: 04-19-2022 End: 04-20-2022 ambulatory SHAIKH Valeria GRIJALVA Facility: Procedures Date Procedure Procedure Detail Performing Clinician Start: 01-09-2023 Assay of thyroxine total G Nate Singh MD Work Phone: Start: 12-07-2022 Total thyroidectomy Donn Murillo Start: 12-05-2022 Thyroidectomy Yuliana Ti mmis Start: 11-22-2022 REMOVAL OF THYROID Genoveva Ruiz Plan of Treatment Date Care Activity Detail Author Start: 12-13-2025 Urine microalbumin profile DTa P,Tdap,Td Vaccine (7 - Td or Tdap) [facility] Start: 04-07-2025 End: 04-07-2025 ambulatory 04/07/2025 4:15 PM [facility] On[facility] [address] [place] [address] Debbi Singh MD [address] [place] [address] F/U Televisit Radiation Oncology Comment on above: F/U Televisit Start: 04-01-2025 End: 07-01-2025 Basic metabolic panel - Blood ISTAT BMP Lab Routine Thyroid cancer (HCC) Expected: 04/01/2025, Expires: 07/01/2025 [facility] Comment on above: Expected: 04/01/2025 , Expires: 07/01/2025 Start: 04-01-2025 End: 07-01-2025 Thyroglobulin and Thyrogobulin Ab panel - Serum or Plasma THYROGLOBULIN, SERUM WITH REFLEX TO IA OR LC-MS/MS Lab Routine Thyroid cancer (HCC) Expected: 04/01/2025, Expires: 07/01/2025 [facility] Comment on above: Expected: 04/01/2025 , Expires: 07/01/2025 Start: 04-01-2025 End: 09-30-2025 Thyrotropin [Units/volume] in Serum or Plasma THYROID STIMULATING HORMONE Lab Routine Thyroid cancer (HCC) Expected: 04/01/2025, Expires: 09/30/2025 [facility] Work Phone: Comment on above: Expected: 04/01/2025 , Expires: 09/30/2025 Start: 04-01-2025 End: 09-30-2025 Thyroxine (T4) [Mass/volume] in Serum or Plasma T4/THYROXINE Lab Routine Thyroid cancer (HCC) Expected: 04/01/2025, Expires: 09/30/2025 [facility] Comment on above: Expected: 04/01/2025 , Expires: 09/30/2025 Start: 04-01-2025 End: 09-30-2025 Triiodothyronine (T3) [Mass/volume] in Serum or Plasma T3 Lab Routine Thyroid cancer (HCC) Expected: 04/01/2025, Expires: 09/30/2025 [facility] Comment on above: Expected: 04/01/2025 , Expires: 09/30/2025 Start: 03-31-2025 End: 03-31-2025 Patient encounter procedure 03/31/2025 11:00 AM EST Office Visit [facility] [address] [place] [address] labs [facility] Comment on above: labs Start: 02-12-2025 End: 02-12-2025 Patient encounter procedure 02/12/2025 9:20 AM EDT Office Visit [facility] [address] [place] [id number] Janice Plata MD [address] [place] [address] [facility] Start: 12-22-2024 Influenza vaccination Influenz a Vaccine (Season Ended) [facility] Start: 11-10-2024 urinalysis, dipstick [facility] Start: 11-10-2024 InPerson; Emp Physic al Other InPerson; [facility] Start: 09-23-2024 End: 09-23-2024 ambulatory 09/23/2024 3:45 PM EDT [facility] Radiation Oncology [address] [place] [address] Debbi Singh MD [address] [place] [address] [place] [address] F/U Televisit Radiation Oncology Comment on above: F/U Televisit Start: 08-20-2024 End: 11-19-2024 Thyroglobulin and Thyrogobulin Ab panel - Serum or Plasma THYROGLOBULIN, SERUM WITH REFLEX TO IA OR LC-MS/MS Lab Routine Thyroid cancer (HCC) Expected: 08/20/2024, Expires: 11/19/2024 [facility] Work Phone: Comment on above: Expected: 08/20/2024 , Expires: 11/19/2024 Start: 08-20-2024 End: 06-19-2025 Thyrotropin [Units/volume] in Serum or Plasma THYROID STIMULATING HORMONE Lab Routine Thyroid cancer (HCC) Expected: 08/20/2024, Expires: 06/19/2025 [facility] Comment on above: Expected: 08/20/2024 , Expires: 06/19/2025 Start: 08-20-2024 End: 06-19-2025 Thyroxine (T4) [Mass/volume] in Serum or Plasma T4/THYROXINE Lab Routine Thyroid cancer (HCC) Expected: 08/20/2024, Expires: 06/19/2025 [facility] Comment on above: Expected: 08/20/2024 , Expires: 06/19/2025 Start: 08-20-2024 End: 06-19-2025 Triiodothyronine (T3) [Mass/volume] in Serum or Plasma T3 Lab Routine Thyroid cancer (HCC) Expected: 08/20/2024, Expires: 06/19/2025 [facility] Comment on above: Expected: 08/20/2024 , Expires: 06/19/2025 Start: 08-19-2024 End: 08-19-2024 ambulatory 08/19/2024 4:15 PM EDT [facility] Radiation Oncology [address] [place] [address] [place] [address] Debbi Singh MD [address] [place] [address] [place] [address] phone update after labs Radiation Oncology Comment on above: phone update after l abs Start: 06-19-2024 End: 06-19-2024 ambulatory 06/19/2024 11:45 AM EST [facility] Radiation Oncology [address] [place] [address] [place] [address] Debbi Singh MD [address] [place] [address] [place] [address] phone update after labs Radiation Oncology Comment on above: phone update after l abs Start: 06-16-2024 End: 09-15-2024 Calcium [Mass/volume] in Serum or Plasma CALCIUM, TOTAL Lab Routine Thyroid cancer (HCC) Expected: 06/16/2024, Expires: 09/15/2024 [facility] Comment on above: Expected: 06/16/2024 , Expires: 09/15/2024 Start: 06-16-2024 End: 04-15-2025 Thyrotropin [Units/volume] in Serum or Plasma THYROID STIMULATING HORMONE Lab Routine Thyroid cancer (HCC) Expected: 06/16/2024, Expires: 04/15/2025 [facility] Comment on above: Expected: 06/16/2024 , Expires: 04/15/2025 Start: 06-16-2024 End: 04-15-2025 Thyroxine (T4) [Mass/volume] in Serum or Plasma T4/THYROXINE Lab Routine Thyroid cancer (HCC) Expected: 06/16/2024, Expires: 04/15/2025 [facility] Comment on above: Expected: 06/16/2024 , Expires: 04/15/2025 Start: 06-16-2024 End: 04-15-2025 Triiodothyronine (T3) [Mass/volume] in Serum or Plasma T3 Lab Routine Thyroid cancer (HCC) Expected: 06/16/2024, Expires: 04/15/2025 [facility] Comment on above: Expected: 06/16/2024 , Expires: 04/15/2025 Start: 2024 Screening for malign ant neoplasm of cervix Cervical Cancer Screening [facility] Start: 04-15-2024 End: 07-15-2024 Thyrotropin [Units/volume] in Serum or Plasma THYROID STIMULATING HORMONE Lab Routine Thyroid cancer (HCC) Expected: 04/15/2024, Expires: 07/15/2024 [facility] Work Phone: Comment on above: Expected: 04/15/2024 , Expires: 07/15/2024 Start: 04-15-2024 End: 07-15-2024 Thyroxine (T4) [Mass/volume] in Serum or Plasma T4/THYROXINE Lab Routine Thyroid cancer (HCC) Expected: 04/15/2024, Expires: 07/15/2024 [facility] Comment on above: Expected: 04/15/2024 , Expires: 07/15/2024 Start: 04-15-2024 End: 04-15-2024 Patient encounter procedure 04/15/2024 10:00 AM EST Office Visit Radiation Oncology [address] [place] [address] Debbi Singh MD [address] [place] [address] 4 month Follow up Radiation Oncology Comment on above: 4 month Follow up Start: 04-10-2024 End: 04-10-2024 Patient encounter procedure 04/10/2024 10:15 AM EST Office Visit Radiation Oncology [address] [place] [address] Debbi Singh MD [address] [place] [address] 4 month Follow up Radiation Oncology Comment on above: 4 month Follow up Start: 04-07-2024 End: 04-07-2024 Patient encounter procedure 04/07/2024 10:30 AM EST Office Visit [facility] [address] [place] [address] lab [facility] Comment on above: lab Start: 04-01-2024 End: 07-01-2024 Thyroglobulin and Thyrogobulin Ab panel - Serum or Plasma THYROGLOBULIN, SERUM WITH REFLEX TO IA OR LC-MS/MS Lab Routine Thyroid cancer (HCC) Expected: 04/01/2024, Expires: 07/01/2024 [facility] Work Phone: Comment on above: Expected: 04/01/2024 , Expires: 07/01/2024 Start: 02-02-2024 End: 05-03-2024 THYROGLOBULIN BY LC-MS/MS, SERUM OR PLASMA, FOR THYROGLOBULIN ANTIBODY INTERFERENCE THYROGLOBULIN BY LC-MS/MS, SERUM OR PLASMA, FOR THYROGLOBULIN ANTIBODY INTERFERENCE Lab Routine Thyroid cancer (HCC) Expected: 02/02/2024, Expires: 05/03/2024 [facility] Comment on above: Expected: 02/02/2024 , Expires: 05/03/2024 Start: 02-02-2024 End: 05-03-2024 Thyrotropin [Units/volume] in Serum or Plasma THYROID STIMULATING HORMONE Lab Routine Thyroid cancer (HCC) Expected: 02/02/2024, Expires: 05/03/2024 [facility] Comment on above: Expected: 02/02/2024 , Expires: 05/03/2024 Start: 02-02-2024 End: 05-03-2024 Thyroxine (T4) [Mass/volume] in Serum or Plasma T4/THYROXINE Lab Routine Thyroid cancer (HCC) Expected: 02/02/2024, Expires: 05/03/2024 [facility] Work Phone: Comment on above: Expected: 02/02/2024 , Expires: 05/03/2024 Start: 12-23-2023 Covid-19 Vaccine () Covid-19 Vaccine () [facility] Start: 12-23-2023 Influenza vaccination Influenza Vacc ine (#1) [facility] Start: 08-31-2023 End: 11-30-2023 THYROGLOBULIN BY LC-MS/MS, SERUM OR PLASMA, FOR THYROGLOBULIN ANTIBODY INTERFERENCE THYROGLOBULIN BY LC-MS/MS, SERUM OR PLASMA, FOR THYROGLOBULIN ANTIBODY INTERFERENCE Lab Routine Thyroid cancer ([facility]) Expected: 08/31/2023, Expires: 11/30/2023 [facility] Work Phone: Comment on above: Expected: 08/31/2023 , Expires: 11/30/2023 Start: 08-31-2023 End: 11-30-2023 Thyrotropin [Units/volume] in Serum or Plasma TSH BLD Lab Routine Thyroid cancer (HCC) Expected: 08/31/2023, Expires: 11/30/2023 [facility] Work Phone: Comment on above: Expected: 08/31/2023 , Expires: 11/30/2023 Start: 08-31-2023 End: 11-30-2023 Thyroxine (T4) [Mass/volume] in Serum or Plasma T4/THYROXINE BLOOD Lab Routine Thyroid cancer (HCC) Expected: 08/31/2023, Expires: 11/30/2023 [facility] Work Phone: Comment on above: Expected: 08/31/2023 , Expires: 11/30/2023 Start: 04-23-2023 Behavioral Health Screening Behavioral Health Screening [facility] Start: 04-23-2023 Depression Assessment Depression Ass essment [facility] Start: 12-22-2022 Covid-19 Vaccine ( season) Covid-19 Vaccine ( season) [facility] Start: 12-22-2022 Influenza vaccination Influenza Vacc ine (#1) [facility] Start: 2022 Urine microalbumin profile DTa P,Tdap,Td Vaccine (1 - Tdap) [facility] Start: 04-23-2022 Depression Assessment Depression Ass essment [facility] Start: 2021 Anxiety Screening Anxiety Screening [facility] Start: 2021 Chlamydia Screening (18-24) Chlamydia Screening (18-24) [facility] Start: 2021 Depression Screening Depression Scre ening [facility] Start: 2021 GC (Gonorrhea) Scree ralph (18-24) GC (Gonorrhea) Screening (18-24) [facility] Start: 2021 Hepatitis C Screening Hepatitis C [facility] Start: 2021 Hepatitis C screening [facility] [facility] Start: 2021 HIV Screening HIV Screening [facility] Start: 2021 HIV screening HIV Screening [facility] Start: 2021 Screening for Chlamy judith trachomatis Chlamydia Screening (18-24) [facility] Start: 2019 Meningococcal B Vacc ine (1 of 2 - Standard) Meningococcal B Vaccine (1 of 2 - Standard) [facility] Start: 2019 Meningococcal B Vacc ine: Consider Based On Risk (1 of 2 - Patient Seeks Protection) Meningococcal B Vaccine: Consider Based On Risk (1 of 2 - Patient Seeks Protection) [facility] Start: 2017 Peds To Adult Transi tion Annual Assessment Peds To Adult Transition Annual Assessment [facility] Start: 06-15-2016 HPV Vaccine (2 - 2-d ose series) HPV Vaccine (2 - 2-dose series) [facility] Start: 01-11-2016 HPV Vaccine (2 - Ris k 3-dose series) HPV Vaccine (2 - Risk 3-dose series) [facility] Start: 2015 Peds To Adult Transi tion Initial Discussion Peds To Adult Transition Initial Discussion [facility] Start: 2012 HPV Vaccine (1 - Ris k 3-dose series) HPV Vaccine (1 - Risk 3-dose series) [facility] Start: 2003 Covid-19 Vaccine (#1) Covid-19 Vacci ne (#1) [facility] Start: 2003 Hepatitis B Vaccine (1 of 3 - 3-dose series) [facility] Cytology Cervical or vaginal smear or scraping study Pap Smear Pathology and Cytology Routine Well woman exam with routine gynecological exam Ordered: 01/01/2025 [facility] Work Phone: Comment on above: Ordered: 01/01/2025 Patient Education [place] - [facility] Immunizations Immunization Date Immunization Notes Care Provider Arti [facility] 12-20-2021 meningococcal polysaccharide (groups A, C, Y and W-135) diphtheria toxoid conjugate vaccine (MCV4P) Noemylor Ruiz [place] [facility] 11-03-2019 hepatitis A vaccine, pediatric/adolescent dosage, 2 dose schedule Yuliana Murillo [facility] [place] 11-03-2019 meningococcal polysaccharide (groups A, C, Y and W-135) diphtheria toxoid conjugate vaccine (MCV4P) Yuliana Weinbergyeppt [facility] [place] 11-03-2019 hepatitis A vaccine, adult dosage Yuliana Murillo [facility] [place] Comment on above: Result Comment: regla rene 12-14-2015 hepatitis A vaccine, adult dosage Yuliana Murillo [facility] [place] 12-14-2015 hepatitis A vaccine, pediatric/adolescent dosage, 2 dose schedule Noemy [place] [facility] 12-14-2015 HPV, unspecified formulation Yuliana Murillo [facility] [place] 12-14-2015 Human Papillomavirus 9-valent vaccine [place]emy [place] [facility] 12-14-2015 meningococcal ACWY vaccine, unspecified formulation Yuliana Murillo [facility] [place] 12-14-2015 meningococcal polysaccharide (groups A, C, Y and W-135) diphtheria toxoid conjugate vaccine (MCV4P) [place]emy [place] [facility] 12-14-2015 tetanus toxoid, redu maci diphtheria toxoid, and acellular pertussis vaccine, adsorbed oNemy [place]iz [place] [facility] 12-14-2015 tetanus toxoid, unspecified formulation Yuliana Murillo [facility] 10-30-2011 varicella virus vaccine Mistikisha Murillo [facility] 07-31-2011 varicella virus vaccine Misti Murillo [facility] 08-06-2008 diphtheria, tetanus toxoids and acellular pertussis vaccine, 5 pertussis antigens Noemy Ruiz [place] [facility] 08-06-2008 measles, mumps and rubella virus vaccine Yuliana Murillo [facility] 08-06-2008 poliovirus vaccine, inactivated Noemy Ruiz [place] [facility] 08-06-2008 poliovirus vaccine, unspecified formulation Yuliana Murillo [facility] 07-05-2006 diphtheria, tetanus toxoids and acellular pertussis vaccine Yulianalm Weinbergs [facility] [place] 07-05-2006 diphtheria, tetanus toxoids and acellular pertussis vaccine, unspecified formulation spotflux [place] [facility] 07-05-2006 hepatitis B vaccine, pediatric or pediatric/adolescent dosage Yulianalm Murillo [facility] 07-05-2006 poliovirus vaccine, unspecified formulation Yulianalm Weinbergs [facility] 05-20-2004 haemophilus influenz ae type b vaccine, PRP-OMP conjugate Yuliana Career Elementyoel [facility] 05-20-2004 haemophilus influenz ae type b vaccine, PRP-T conjugate spotflux [place] [facility] 05-20-2004 measles, mumps and rubella virus vaccine Yulianalm Weinbergs [facility] 2003 diphtheria, tetanus toxoids and acellular pertussis vaccine Yulianalm Weinbergs [facility] 2003 DTaP-hepatitis B and poliovirus vaccine spotflux [place] [facility] 2003 haemophilus influenz ae type b vaccine, PRP-OMP conjugate Yuliana CrossTx [facility] 2003 haemophilus influenz ae type b vaccine, PRP-T conjugate spotflux [place] [facility] 2003 hepatitis B vaccine, pediatric or pediatric/adolescent dosage Yuliana Career Elementyoel [facility] 2003 poliovirus vaccine, unspecified formulation Yuliana Weinbergs [facility] [place] 2003 diphtheria, tetanus toxoids and acellular pertussis vaccine Yuliana Empressrs [facility] [place] 2003 DTaP-hepatitis B and poliovirus vaccine spotflux [place] - [facility] 2003 haemophilus influenz ae type b vaccine, PRP-OMP conjugate Yuliana CrossTx [facility] 2003 haemophilus influenz ae type b vaccine, PRP-T conjugate spotflux [place] - [facility] 2003 poliovirus vaccine, unspecified formulation Yuliana Empressrmarry [facility] 2003 diphtheria, tetanus toxoids and acellular pertussis vaccine Yuliana Sultanas [facility] 2003 DTaP-hepatitis B and poliovirus vaccine spotflux [place] - [facility] 2003 haemophilus influenz ae type b vaccine, PRP-OMP conjugate Yuliana CrossTx [facility] 2003 haemophilus influenz ae type b vaccine, PRP-T conjugate spotflux [place] [facility] 2003 hepatitis B vaccine, pediatric or pediatric/adolescent dosage Yuliana CrossTx [facility] 2003 poliovirus vaccine, unspecified formulation Yuliana Career Elementpetras [facility] NEGATED: Highlighted row has not occurred!03-02-2021 influenza virus vaccine, unspecified formulation Yuliana Murillo [facility] [place] Payers Date Payer Category Payer Unknown [employer] BLUE CARD PPO OOS [id number] 2022-Present [phone] [address] [place] [address] PPO [id number] 2019 Blue Cross Blue Shield [id number] 2003 Unknown [id number] 2003 Unknown [id number] 2003 Unknown [id number] 2003 Unknown [id number] 1972 Unknown [id number] 1972 Unknown [id number] 1959 Unknown [id number] Self-pay [id number] Social History Date Type Detail Facility Unknown if ever smoked [facility] [employer] Other Start: 01-09-2023 End: 01-01-2025 Sex Assigned At [facility] Tobacco Household tobacc o concerns: No. [facility] Tobacco smoking status No Smoking Status Entered [facility] Start: 09-18-2022 End: 01-09-2023 Tobacco smoking status NHIS Never smoked tobacco [facility] Start: 09-18-2022 End: 01-09-2023 Tobacco use and exposure Smokeless tobacco non-user [facility] Start: 01-09-2023 End: 01-01-2025 Alcohol intake Ex-drinker (finding) [facility] Start: 01-09-2023 End: 01-01-2025 History of Social function [facility] National Score (1-100), lower number is lower risk 59 [facility] Start: 2003 Sex Assigned At Not on file C [facility] Medical Equipment Procedure Code Equipment Code Equipment Original Text Equi pment Identifier Dates Procedure Implant ([id number]) Functional Status Date Assessment Result Facility 12-05-2022 Functional Status Hx of Positive TB Skin Test No [facility] 12-04-2022 Functional Status N/A [facility] Clinical Notes 10-17-2022 to 01-01-2025 CHRIS Alberto - 01/01/2025 11:30 AM Debbi Turner MD - 09/23/2024 7:56 AM EDTTelephone Encounter - Cristin Mora [facility] - 08/19/2024 9:37 AM Debbi Turner MD - 06/19/2024 11:12 AM EST Note Date & Type Note Facility 01-01-2025 History of Present illness Narrative Reason for Appointment: Patient ID: Jeanne Márquez is a 19 y.o. female who presents [...] Age of Onset Thyroid disease Mother Rachel Márquez SURGICAL HISTORY Past Surgical History: Procedure Laterality Date FNA W IMAGING GUIDANCE 07/28/2022 thyroid THYROID SURGERY 11/21/2022 RT hemithyroidectomy w neck exploration, Lidia THYROID SURGERY Left 12/07/2022 completion thyroidectomy, Dr. [...] nursing note reviewed. Exam conducted with a technical delivery manager present. Vitals: Estimated body mass index is 21.9 kg/m as calculated from the following: Height as [...] of: CHRIS Alberto documented in this encounter [facility] 09-23-2024 Note HNO ID: [id number] Author: Debbi SINGH MD Service: ? Author Type: Physician Type: Progress Notes Filed: 09/30/2024 13:46 Note Text: AMBULATORY TELEPHONE VISIT Jeanne Márquez has consented to this telephone encounter. Persons Present: patient Chief Complaint/Reason: Thyroid cancer with prior thyroidectomy HPI: Patient states she is doing well. She is finished with school. Denies any new issues. Denies any chest pain or palpitations. Data Reviewed: Most recent labs Latest Reference Range AND Units 01/09/23 10:02 03/16/23 09:54 04/07/24 10:23 06/05/24 08:08 09/12/24 10:54 Thyroglobulin Ab, Serum <4.0 IU/mL <0.9 <0.9 Thyroglobulin, Serum 1.6 - 50.0 ng/mL 0.3 (L) <0.1 (L) Thyroglobulin, LC-MS/MS 1.3 - 31.8 ng/mL <0.5 (L) T4 5.5 - 10.2 ug/dL 0.5 (L) 7.3 8.1 7.3 9.5 TSH 0.270 - 4.200 mIU/L 2.240 14.300 (H) 21.700 (H) 5.910 (H) 0.025 (L) T3 79 - 165 ng/dL 98 130 (L): Data is abnormally low (H): Data is abnormally high Latest Reference Range AND Units 01/09/23 10:02 03/16/23 09:54 04/07/24 10:23 06/05/24 08:08 Calcium 8.5 - 10.2 mg/dL 9.4 Thyroglobulin Ab, Serum <4.0 IU/mL <0.9 Thyroglobulin, Serum 1.6 - 50.0 ng/mL 0.3 (L) Thyroglobulin, LC-MS/MS 1.3 - 31.8 ng/mL <0.5 (L) T4 5.5 - 10.2 ug/dL 0.5 (L) 7.3 8.1 7.3 TSH 0.270 - 4.200 mIU/L 2.240 14.300 (H) 21.700 (H) 5.910 (H) T3 79 - 165 ng/dL 98 (L): Data is abnormally low (H): Data is abnormally high Latest Reference Range AND Units 01/09/23 10:02 03/16/23 09:54 06/01/23 09/29/23 Thyroglobulin, LC-MS/MS 1.3 - 31.8 ng/mL <0.5 (L) na T4 5.5 - 10.2 ug/dL 0.5 (L) 7.3 9.6 10.3 TSH 0.510 - 4.300 mIU/L 2.240 14.300 (H) 6.13 .127 (L): Data is abnormally low (H): Data is abnormally high Assessment: Doing well. Thyroglobulin now undetectable. I feel she is on appropriate thyroid replacement with TSH suppression. Recommend follow-up in 6 months with repeat labs. Total Time Spent: 11 minutes Debbi Singh MD [facility] 09-23-2024 History of Present illness Narrative AMBULATORY TELEPHONE VISIT Jeanne Márquez has consented to this telephone encounter. Persons Present: patient Chief Complaint/Reason: Thyroid cancer with prior thyroidectomy HPI: Patient states she is doing well. She is finished with school. Denies any new issues. Denies any chest pain or palpitations. Data Reviewed: Most recent labs Latest Reference Range & Units 01/09/23 10:02 03/16/23 09:54 04/07/24 10:23 06/05/24 08:08 09/12/24 10:54 Thyroglobulin Ab, Serum <4.0 IU/mL <0.9 <0.9 Thyroglobulin, Serum 1.6 - 50.0 ng/mL 0.3 (L) <0.1 (L) Thyroglobulin, LC-MS/MS 1.3 - 31.8 ng/mL <0.5 (L) T4 5.5 - 10.2 ug/dL 0.5 (L) 7.3 8.1 7.3 9.5 TSH 0.270 - 4.200 mIU/L 2.240 14.300 (H) 21.700 (H) 5.910 (H) 0.025 (L) T3 79 - 165 ng/dL 98 130 (L): Data is abnormally low (H): Data is abnormally high Latest Reference Range & Units 01/09/23 10:02 03/16/23 09:54 04/07/24 10:23 06/05/24 08:08 Calcium 8.5 - 10.2 mg/dL 9.4 Thyroglobulin Ab, Serum <4.0 IU/mL <0.9 Thyroglobulin, Serum 1.6 - 50.0 ng/mL 0.3 (L) Thyroglobulin, LC-MS/MS 1.3 - 31.8 ng/mL <0.5 (L) T4 5.5 - 10.2 ug/dL 0.5 (L) 7.3 8.1 7.3 TSH 0.270 - 4.200 mIU/L 2.240 14.300 (H) 21.700 (H) 5.910 (H) T3 79 - 165 ng/dL 98 (L): Data is abnormally low (H): Data is abnormally high Latest Reference Range & Units 01/09/23 10:02 03/16/23 09:54 06/01/23 09/29/23 Thyroglobulin, LC-MS/MS 1.3 - 31.8 ng/mL <0.5 (L) na T4 5.5 - 10.2 ug/dL 0.5 (L) 7.3 9.6 10.3 TSH 0.510 - 4.300 mIU/L 2.240 14.300 (H) 6.13 .127 (L): Data is abnormally low (H): Data is abnormally high Assessment: Doing well. Thyroglobulin now undetectable. I feel she is on appropriate thyroid replacement with TSH suppression. Recommend follow-up in 6 months with repeat labs. Total Time Spent: 11 minutes Debbi Singh MD documented in this encounter [facility] 08-19-2024 Telephone encounter Note I canceled today's Televisit and rescheduled it to 09/23/24 at 345 pm. JESSICA Frazier [facility] 08-19-2024 Miscellaneous Notes I canceled today's Televisit and rescheduled it to 09/23/24 at 345 pm. JESSICA Frazier Jeanne called stating she has not had labs drawn yet for tomorrow's phone visit. She is graduating college on 08/30/24 and would like to have labs drawn at [facility] sometime the week of 09/03/24. Follow up rescheduled with Dr. Singh to 09/23/24 at 3:[address] Singh's PTO. PSS: Please reschedule 08/19/24 phone visit to 09/23/24 at 3:45 per patient request. I will mail a copy of the lab work to patient's home address. Fam Montes De Oca RN documented in this encounter [facility] 08-18-2024 Telephone encounter Note Jeanne called stating she has not had labs drawn yet for tomorrow's phone visit. She is graduating college on 08/30/24 and would like to have labs drawn at [facility] sometime the week of 09/03/24. Follow up rescheduled with Dr. Singh to 09/23/24 at 3:[address] Singh's PTO. PSS: Please reschedule 08/19/24 phone visit to 09/23/24 at 3:45 per patient request. I will mail a copy of the lab work to patient's home address. Fam Montes De Oca RN [facility] 06-23-2024 Telephone encounter Note Images from the original note were not included. Message Received: 4 days ago Debbi Singh MD P [employer] Jeffrey Munson; Svetlana Hernández 2 m with labs televisit [facility] 06-23-2024 Miscellaneous Notes Images from the original note were not included. Message Received: 4 days ago Debbi Singh MD P [employer] Nurse Munson; Svetlana Hernández 2 m with labs televisit documented in this encounter [facility] 06-19-2024 Note HNO ID: [id number] Author: Debbi SINGH MD Service: ? Author Type: Physician Type: Progress Notes Filed: 06/19/2024 11:41 Note Text: AMBULATORY TELEPHONE VISIT Jeanne Márquez has consented to this telephone encounter. Persons Present: patient Chief Complaint/Reason: Thyroid cancer with prior thyroidectomy HPI: Patient feels she is doing better on new dose. Does complain of more dry skin than usual for this time year. No significant pruritus. Data Reviewed: Most recent labs Latest Reference Range AND Units 01/09/23 10:02 03/16/23 09:54 04/07/24 10:23 06/05/24 08:08 Calcium 8.5 - 10.2 mg/dL 9.4 Thyroglobulin Ab, Serum <4.0 IU/mL <0.9 Thyroglobulin, Serum 1.6 - 50.0 ng/mL 0.3 (L) Thyroglobulin, LC-MS/MS 1.3 - 31.8 ng/mL <0.5 (L) T4 5.5 - 10.2 ug/dL 0.5 (L) 7.3 8.1 7.3 TSH 0.270 - 4.200 mIU/L 2.240 14.300 (H) 21.700 (H) 5.910 (H) T3 79 - 165 ng/dL 98 (L): Data is abnormally low (H): Data is abnormally high Latest Reference Range AND Units 01/09/23 10:02 03/16/23 09:54 06/01/23 09/29/23 Thyroglobulin, LC-MS/MS 1.3 - 31.8 ng/mL <0.5 (L) na T4 5.5 - 10.2 ug/dL 0.5 (L) 7.3 9.6 10.3 TSH 0.510 - 4.300 mIU/L 2.240 14.300 (H) 6.13 .127 (L): Data is abnormally low (H): Data is abnormally high Assessment: Recommend increasing Synthroid for further TSH suppression. Recommend rechecking labs in 2 months. Total Time Spent: 7 minutes Debbi Singh MD [facility] 06-19-2024 History of Present illness Narrative AMBULATORY TELEPHONE VISIT Jeanne Márquez has consented to this telephone encounter. Persons Present: patient Chief Complaint/Reason: Thyroid cancer with prior thyroidectomy HPI: Patient feels she is doing better on new dose. Does complain of more dry skin than usual for this time year. No significant pruritus. Data Reviewed: Most recent labs Latest Reference Range & Units 01/09/23 10:02 03/16/23 09:54 04/07/24 10:23 06/05/24 08:08 Calcium 8.5 - 10.2 mg/dL 9.4 Thyroglobulin Ab, Serum <4.0 IU/mL <0.9 Thyroglobulin, Serum 1.6 - 50.0 ng/mL 0.3 (L) Thyroglobulin, LC-MS/MS 1.3 - 31.8 ng/mL <0.5 (L) T4 5.5 - 10.2 ug/dL 0.5 (L) 7.3 8.1 7.3 TSH 0.270 - 4.200 mIU/L 2.240 14.300 (H) 21.700 (H) 5.910 (H) T3 79 - 165 ng/dL 98 (L): Data is abnormally low (H): Data is abnormally high Latest Reference Range & Units 01/09/23 10:02 03/16/23 09:54 06/01/23 09/29/23 Thyroglobulin, LC-MS/MS 1.3 - 31.8 ng/mL <0.5 (L) na T4 5.5 - 10.2 ug/dL 0.5 (L) 7.3 9.6 10.3 TSH 0.510 - 4.300 mIU/L 2.240 14.300 (H) 6.13 .127 (L): Data is abnormally low (H): Data is abnormally high Assessment: Recommend increasing Synthroid for further TSH suppression. Recommend rechecking labs in 2 months. 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 HPI: Overall doing well. She only spoke. Has follow-up more cold than has had increased fatigue over the past 1 to 2 months. Denies any chest pain. No dysphagia. Latest Reference Range & Units 01/09/23 10:02 03/16/23 09:54 04/07/24 10:23 T4 5.5 - 10.2 ug/dL 0.5 (L) 7.3 8.1 TSH 0.510 - 4.300 mIU/L 2.240 14.300 (H) 21.700 (H) Thyroglobulin Ab, Serum <4.0 IU/mL <0.9 Thyroglobulin, Serum 1.6 - 50.0 ng/mL 0.3 (L) (L): Data is abnormally low (H): Data is abnormally high LABORATORY: Latest Reference Range & Units 01/09/23 10:02 03/16/23 09:54 06/01/23 09/29/23 Thyroglobulin, LC-MS/MS 1.3 - 31.8 ng/mL <0.5 (L) na T4 5.5 - 10.2 ug/dL 0.5 (L) 7.3 9.6 10.3 TSH 0.510 - 4.300 mIU/L 2.240 14.300 (H) 6.13 .127 Review of Systems: PAIN ASSESSMENT: Negative for pain, history of chronic pain, or current treatment for a chronic pain condition. GENERAL: No weight loss, malaise or fevers. NECK: Negative for goiter, pain or significant neck swelling MUSCULOSKELETAL: Negative for joint pain or swelling, back pain or muscle pain The remainder of the review of systems is negative. ALLERGIES No Known Allergies MEDICATIONS: medroxyPROGESTERone (DEPO-PROVERA) 150 mg/mL injection levothyroxine (SYNTHROID) 150 mcg tablet Take 1 tablet by mouth once daily. No past medical history on file. Prior radiation therapy, collagen vascular disease, or inflammatory bowel disease: No Any implanted or external electric devices? No status: Patient states there is no possibility she is at this time. Educated on risks of during treatment. PAST SURGICAL HISTORY Procedure Laterality Date THYROIDECTOMY FAMILY HISTORY Problem Relation Age of Onset Leukemia Paternal Grandfather Breast Cancer Maternal Aunt Social History Tobacco Use Smoking status: Never Smokeless tobacco: Never Substance Use Topics Alcohol use: Not Currently Drug use: Not Currently PHYSICAL EXAM: VS: BP 104/73 Pulse 71 Temp 36.7 C (98 F) Resp 16 Wt 65.1 kg (143 lb 8.3 oz) SpO2 100% BMI 22.48 kg/m KPS: 100 General Appearance: Alert and oriented. No acute distress. HEENT: NCAT. Sclera anicteric. PERRL. EOMI. Oral cavity & oropharnyx: lips and gums normal, oral and pharyngeal mucosa moist, palate elevates normally, tongue mobile and without palpable lesions, tonsils without masses Neck: Normal ROM. No palpable cervical or supraclavicular adenopathy. Musculoskeletal: No edema. Normal ROM in extremities. No bone or spine tenderness. Neuro: Speech fluent. Gait normal. No focal deficits. Skin: No rashes noted Lymphatics: No palpable lymphadenopathy. Hematologic: No signs of active bleeding. 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 Overall doing fairly well. Thyroglobulin remains very low despite lack of TSH suppression, actual TSH elevation presently. Given this recommend continued follow-up. Recommend increasing Synthroid for better TSH suppression will recheck labs in 2 to 3 months Signed by: Debbi Singh MD cc: To use this Smartlink, specify the provider ID whose address you want to display, e.g., .PROVADDR[1 (where 1 is the provider ID). [employer] [address] [place] [address] Dr. Murillo documented in this encounter [facility] 04-15-2024 Note HNO ID: [id number] Author: Debbi SINGH MD Service: ? 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 HPI: Overall doing well. She only spoke. Has follow-up more cold than has had increased fatigue over the past 1 to 2 months. Denies any chest pain. No dysphagia. Latest Reference Range AND Units 01/09/23 10:02 03/16/23 09:54 04/07/24 10:23 T4 5.5 - 10.2 ug/dL 0.5 (L) 7.3 8.1 TSH 0.510 - 4.300 mIU/L 2.240 14.300 (H) 21.700 (H) Thyroglobulin Ab, Serum <4.0 IU/mL <0.9 Thyroglobulin, Serum 1.6 - 50.0 ng/mL 0.3 (L) (L): Data is abnormally low (H): Data is abnormally high LABORATORY: Latest Reference Range AND Units 01/09/23 10:02 03/16/23 09:54 06/01/23 09/29/23 Thyroglobulin, LC-MS/MS 1.3 - 31.8 ng/mL <0.5 (L) na T4 5.5 - 10.2 ug/dL 0.5 (L) 7.3 9.6 10.3 TSH 0.510 - 4.300 mIU/L 2.240 14.300 (H) 6.13 .127 Review of Systems: PAIN ASSESSMENT: Negative for pain, history of chronic pain, or current treatment for a chronic pain condition. GENERAL: No weight loss, malaise or fevers. NECK: Negative for goiter, pain or significant neck swelling MUSCULOSKELETAL: Negative for joint pain or swelling, back pain or muscle pain The remainder of the review of systems is negative. ALLERGIES No Known Allergies MEDICATIONS: medroxyPROGESTERone (DEPO-PROVERA) 150 mg/mL injection levothyroxine (SYNTHROID) 150 mcg tablet Take 1 tablet by mouth once daily. No past medical history on file. Prior radiation therapy, collagen vascular disease, or inflammatory bowel disease: No Any implanted or external electric devices? No status: Patient states there is no possibility she is at this time. Educated on risks of during treatment. PAST SURGICAL HISTORY Procedure Laterality Date THYROIDECTOMY FAMILY HISTORY Problem Relation Age of Onset Leukemia Paternal Grandfather Breast Cancer Maternal Aunt Social History Tobacco Use Smoking status: Never Smokeless tobacco: Never Substance Use Topics Alcohol use: Not Currently Drug use: Not Currently PHYSICAL EXAM: VS: BP 104/73 Pulse 71 Temp 36.7 ?C (98 ?F) Resp 16 Wt 65.1 kg (143 lb 8.3 oz) SpO2 100% BMI 22.48 kg/m? KPS: 100 General Appearance: Alert and oriented. No acute distress. HEENT: NCAT. Sclera anicteric. PERRL. EOMI. Oral cavity AND oropharnyx: lips and gums normal, oral and pharyngeal mucosa moist, palate elevates normally, tongue mobile and without palpable lesions, tonsils without masses Neck: Normal ROM. No palpable cervical or supraclavicular adenopathy. Musculoskeletal: No edema. Normal ROM in extremities. No bone or spine tenderness. Neuro: Speech fluent. Gait normal. No focal deficits. Skin: No rashes noted Lymphatics: No palpable lymphadenopathy. Hematologic: No signs of active bleeding. 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 Overall doing fairly well. Thyroglobulin remains very low despite lack of TSH suppression, actual TSH elevation presently. Given this recommend continued follow-up. Recommend increasing Synthroid for better TSH suppression will recheck labs in 2 to 3 months Signed by: Debbi Singh MD cc: To use this Smartlink, specify the provider ID whose address you want to display, e.g., .PROVADDR[1 (where 1 is the provider ID). Shaikh Valentine [address] [place] [address] Dr. Murillo [facility] 04-01-2024 Telephone encounter Note Please sign new Thyroglobulin order. Svetlana Bhagat RN [facility] 04-01-2024 Miscellaneous Notes Please sign new Thyroglobulin order. Svetlana Bhagat RN documented in this encounter [facility] 02-27-2024 Telephone encounter Note Keegan notified of Dr. Singh's response. Call transferred to [facility] to reschedule. Fam Montes De Oca RN [facility] 02-27-2024 Miscellaneous Notes Keegan notified of Dr. Singh's response. Call transferred to [facility] to reschedule. Fam Montes De Oca RN Keegan, pt's mother, left a message stating Jeanne is scheduled for a follow up with Dr. Singh 03/04/24. She is wondering if this appointment and lab work can be pushed back to March when Jeanne is home from college. Please advise. Fam Montes De Oca RN documented in this encounter [facility] 02-25-2024 Telephone encounter Note Keegan, pt's mother, left a message stating Jeanne is scheduled for a follow up with Dr. Singh 03/04/24. She is wondering if this appointment and lab work can be pushed back to March when Jeanne is home from college. Please advise. Fam Montes De Oca RN [facility] 10-23-2023 Note HNO ID: [id number] Author: Debbi SINGH MD Service: ? Author Type: Physician Type: Progress Notes Filed: 11/02/2023 11:46 Note Text: AMBULATORY TELEPHONE VISIT Jeanne Márquez has consented to this telephone encounter. Persons Present: patient Chief Complaint/Reason: Thyroid cancer with prior thyroidectomy HPI: Doing well denies problems. . Denies any palpitations excess anxiety neck pain or dysphagia. Data Reviewed: Most recent labs Latest Reference Range AND Units 01/09/23 10:02 03/16/23 09:54 06/01/23 09/29/23 Thyroglobulin, LC-MS/MS 1.3 - 31.8 ng/mL <0.5 (L) na T4 5.5 - 10.2 ug/dL 0.5 (L) 7.3 9.6 10.3 TSH 0.510 - 4.300 mIU/L 2.240 14.300 (H) 6.13 .127 (L): Data is abnormally low (H): Data is abnormally high Assessment: Doing well. Labs show appropriate TSH suppression. Plan to continue current dose of Synthroid. Recommend follow-up in 3 to 4 months with repeat labs including thyroglobulin. Total Time Spent: 6 minutes Debbi Singh MD [facility] 10-23-2023 History of Present illness Narrative AMBULATORY TELEPHONE VISIT Jeanne Márquez has consented to this telephone encounter. Persons Present: patient Chief Complaint/Reason: Thyroid cancer with prior thyroidectomy HPI: Doing well denies problems. . Denies any palpitations excess anxiety neck pain or dysphagia. Data Reviewed: Most recent labs Latest Reference Range & Units 01/09/23 10:02 03/16/23 09:54 06/01/23 09/29/23 Thyroglobulin, LC-MS/MS 1.3 - 31.8 ng/mL <0.5 (L) na T4 5.5 - 10.2 ug/dL 0.5 (L) 7.3 9.6 10.3 TSH 0.510 - 4.300 mIU/L 2.240 14.300 (H) 6.13 .127 (L): Data is abnormally low (H): Data is abnormally high Assessment: Doing well. Labs show appropriate TSH suppression. Plan to continue current dose of Synthroid. Recommend follow-up in 3 to 4 months with repeat labs including thyroglobulin. Total Time Spent: 6 minutes Debbi Singh MD documented in this encounter [facility] 06-13-2023 Miscellaneous Notes Called Jeanne left message for her to call us to schedule appt closer to august when she knows when she will be home. Thanks Images from the original note were not included. Debbi Singh MD [facility]; Jacqueline Tran Return in mid August with labs (after she returns home from school) Synthroid adjusted, called into pharmacy in [facility] documented in this encounter [facility] 06-12-2023 History of Present illness Narrative AMBULATORY TELEPHONE VISIT Jeanne Márquez has consented to this telephone encounter. Persons Present: patient Chief Complaint/Reason: Thyroid cancer with prior thyroidectomy HPI: Doing well denies problems. Energy level good. Denies any palpitations excess anxiety neck pain or dysphagia. Data Reviewed: Most recent labs Latest Reference Range & Units 01/09/23 10:02 03/16/23 09:54 06/01/23 Thyroglobulin, LC-MS/MS 1.3 - 31.8 ng/mL <0.5 (L) T4 5.5 - 10.2 ug/dL 0.5 (L) 7.3 9.6 TSH 0.510 - 4.300 mIU/L 2.240 14.300 (H) 6.13 (L): Data is abnormally low (H): Data is abnormally high Assessment: Doing well. TSH slightly higher than I would like, recommend increasing Synthroid dose to Synthroid 137 mcg. Plan to recheck in 8 weeks. Total Time Spent: 6 minutes Debbi Singh MD documented in this encounter [facility] 06-11-2023 Miscellaneous Notes Patient is scheduled. Called patient again left message Called patient no answer left her a message to call back Call placed to pt and LM requesting CB due to pt not having labs for tomorrow's phone visit yet. Requested pt CB to coordinate. Svetlana Bhagat, RN documented in this encounter [facility] 06-04-2023 Note [id number] [facility] Comment on above: Other Comment: NOT I T 01-09-2023 Nurse Note Status: Patient states there is no possibility she is at this time. documented in this encounter [facility] 01-09-2023 History of Present illness Narrative Radiation Oncology - New Patient/Consult Note PATIENT NAME: Jeanne Márquez PATIENT : 2005 REQUESTING PROVIDER: Dr. 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 HPI: 17 year old female who presents with above diagnosis, for an opinion regarding the role of radiation therapy in the management of the patient's disease. Final recommendations will be communicated back to the requesting physician by way of the shared medical record, or letter to requesting physician via US mail. Patient presented with a right thyroid enlargement. She underwent work-up including ultrasound as noted below. She had not had any significant hoarseness dysphagia neck pain or otalgia. Otherwise active healthy. 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 US thyroid 07/03/22 showing 6.2 x 2.3 x 2.1 cm right thyroid lobe, heterogeneous, solid nodule 2.9 x 2.4 x 2.2 cm (TR 4). Isthmus measuring 6.5 mm. Left thyroid lobe measuring 4.5 x 1.3 x 1.2 cm heterogeneous without focal nodules FNA recommended US guided FNA of right thyroid nodule(2.4 cm) 07/28/22 showing follicular cells with cytologic atypia, sparsely cellular. Repeat US guided biopsy/FNA 10/09/22 2.4x1.8.1.8 thyroid nodule, heterogeneous. Pathology demonstrating atypia of undetermined significance. She underwent right thyroidectomy with neck exploration on 11/21/22. Pathology (including [facility] review): Outside slides ([id number], 11/21/2022, [facility], [place], [place]): A. Lymph nodes, anterior compartment of right neck, excision: - Two lymph nodes, negative for carcinoma (0/2). B. 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 - Chronic lymphocytic thyroiditis and nodular follicular hyperplasia. - See comment. (Grossly describes 2.5 cm) C. Lymph node, anterior compartment of right neck, excision: - One lymph node negative for carcinoma (0/1). She underwent completion left thyroidectomy 12/07/22. Pathology (including [facility] review): 7 slides labeled [id number] are received from [facility] ([place], [place]), collected December 07, 2022. 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 - No angiolymphatic or perineural invasion. - Nodular thyroid hyperplasia. - Chronic lymphocytic thyroiditis. - Parathyroid tissue present. Patient has done very well after surgery. She has returned to school. Denies any significant neck pain dysphagia or hoarseness other than when she cheers a lot during a game, which has happened prior to surgery. She has started on Cytomel and is feeling good in terms of energy level etc. FOCUSED ROS: Dysphagia: No Mucositis: No Voice Changes:No Fatigue: No Nausea: No Vomitting: No Pain: No Taste: No Weight loss: No ALLERGIES No Known Allergies MEDICATIONS: calcitriol (ROCALTROL) 0.25 mcg capsule Take 0.5 mcg by mouth. calcium carbonate (OS-CORAL 500) 500 mg calcium (1,250 mg) tablet Take 2 tablets by mouth three times daily. liothyronine (CYTOMEL) 25 mcg tablet medroxyPROGESTERone (DEPO-PROVERA) 150 mg/mL injection History reviewed. No pertinent past medical history. Prior radiation therapy, collagen vascular disease, or inflammatory bowel disease: No Any implanted or external electric devices? No status: Patient states there is no possibility she is at this time. Educated on risks of during treatment. PAST SURGICAL HISTORY Procedure Laterality Date THYROIDECTOMY FAMILY HISTORY Problem Relation Age of Onset Leukemia Paternal Grandfather Breast Cancer Maternal Aunt Social History Tobacco Use Smoking status: Never Smokeless tobacco: Never Substance Use Topics Alcohol use: Not Currently Drug use: Not Currently COMPLETE REVIEW OF SYSTEMS: GENERAL: feeling well without fatigue, no recent change in weight NECK: denies swelling or pain in neck RESPIRATORY: no cough, no wheezing or shortness of breath CARDIOVASCULAR: no chest pain, no palpitations GI: normal appetite, tolerating PO well, BMs normal, and no abdominal pain MUSCULOSKELETAL: denies any painful or swollen joints, no muscle aches SKIN: no rash NEURO: no numbness or paresthesias and no weakness of the extremities As noted in HPI PHYSICAL EXAM: VS: BP 104/70 Pulse 77 Temp 36.4 C (97.6 F) Resp 16 Ht 170.2 cm (5' 7 ) Wt 65.3 kg (144 lb) SpO2 99% BMI 22.55 kg/m KPS: 100 General Appearance: Alert and oriented. No acute distress. HEENT: NCAT. Sclera anicteric. PERRL. EOMI. Oral cavity & oropharnyx: lips and gums normal, oral and pharyngeal mucosa moist, palate elevates normally, tongue mobile and without palpable lesions, tonsils without masses Neck: Normal ROM. No palpable cervical or supraclavicular adenopathy. Musculoskeletal: No edema. Normal ROM in extremities. No bone or spine tenderness. Neuro: Speech fluent. Gait normal. No focal deficits. Skin: No rashes noted Lymphatics: No palpable lymphadenopathy. Hematologic: No signs of active bleeding. 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 Patient overall is doing well after thyroidectomy. I discussed with her potential options of management including potential I-131 treatment. Her main risk factor is size of tumor being greater than 2 cm. Discussed potential benefits of I-131 therapy including ability for further whole-body imaging, ablation of any remnant thyroid tissue facilitating improved reliance on subsequent thyroglobulin measurements, as well as decrease risk of tumor recurrence. We also discussed potential acute and long-term effects of I-131 treatment. We discussed potential I131 effects on both fertility as well as early menopause from the literature though it is unclear whether these risks are dose dependent, and may not be as apparent for lower ablative doses use currently. We discussed avoiding for at least 1-1/2 to 2 years after I-131. At this point I would recommend further evaluation with thyroglobulin. Should the thyroglobulin be undetectable or less than 1.0 it would be reasonable to hold off on immediate I131 and to follow patient for now with Thyrogen stimulated thyroglobulin in the near future to help with further recommendations concerning the need for I-131 therapy. Discussed current NCCN guidelines which would suggest consideration for I-131 if tumor size greater than 2 cm and persistent stimulated detectable thyroglobulin or significant thyroglobulin antibodies. We will discuss further with patient after thyroglobulin returns. Patient today was with her mom and dad. She gave permission to give these initial results to her mom. I encouraged her to call should she have questions or concerns as well as encouraged her parents to do the same. Signed by: eDbbi Singh MD cc: To use this Smartlink, specify the provider ID whose address you want to display, e.g., .PROVADDR[1 (where 1 is the provider ID). Shaikh Valentine [address] [facility] [address] [address] Murillo documented in this encounter [facility] 12-08-2022 Evaluation + Plan note Extrac renetta from: Title:Clinical Document Author:Lidia OSEI, [facility] Date:12/08/22 ENT POD 1 Resting comfortably AVSS Drain 5cc AM Ca 8.4 Wound C/D/I Drain removed. D/C home Extracted from: Title:ANES Post General Author:Mark Porras DO Date:12/07/22 Plan Transfer/Discharge: Patient exhibiting no signs of N/V. Hydration status is adequate. Extracted from: Title:Vern Basic PRE Author:Steve Porras DO Date:12/07/22 Plan [place] [employer] Anesthesiologists (ASA) physical status classification: Class II. Anesthetic Preoperative Plan: Anesthesia General. [facility]08-18-2023 Hospital Discharge instructions Patient Education 12/08/2022 08:19:56 Thyroidectomy, Care After Thyroidectomy, Care After This sheet gives you information about how to care for yourself after your procedure. Your health care provider may also give you more specific instructions. If you have problems or questions, contact your health care provider. What can I expect after the procedure? After the procedure, it is common to have: Mild pain in the neck or upper body, especially when swallowing. A swollen neck. A sore throat. A weak or hoarse voice. Slight tingling or numbness around your mouth, or in your fingers or toes. This may last for a day or two after surgery. This condition is caused by low levels of calcium. You may be given calcium supplements to treat it. Follow these instructions at home: Medicines Take akjz-vev-tbtornt and prescription medicines only as told by your health care provider. Do not drive or use heavy machinery while taking prescription pain medicine. Do not take medicines that contain aspirin and ibuprofen until your health care provider says that you can. These medicines can increase your risk of bleeding. Take a thyroid hormone medicine as recommended by your health care provider. You will have to take this medicine for the rest of your life if your entire thyroid was removed. Eating and drinking Start slowly with eating. You may need to have only liquids and soft foods for a few days or as directed by your health care provider. To prevent or treat constipation while you are taking prescription pain medicine, your health care provider may recommend that you: ?Drink enough fluid to keep your urine pale yellow. ?Take mcdu-hah-xncdkrh or prescription medicines. ?Eat foods that are high in fiber, such as fresh fruits and vegetables, whole grains, and beans. ?Limit foods that are high in fat and processed sugars, such as fried and sweet foods. Incision care Follow instructions from your health care provider about how to take care of your incision. Make sure you: ?Wash your hands with soap and water before you change your bandage (dressing). If soap and water are not available, use hand digital asset manager. ?Change your dressing as told by your health care provider. ?Leave stitches (sutures), skin glue, or adhesive strips in place. These skin closures may need to stay in place for 2 weeks or longer. If adhesive strip edges start to loosen and curl up, you may trim the loose edges. Do not remove adhesive strips completely unless your health care provider tells you to do that. Check your incision area every day for signs of infection. Check for: ?Redness, swelling, or pain. ?Fluid or blood. ?Warmth. ?Pus or a bad smell. Do not take baths, swim, or use a hot tub until your health care provider approves. Activity For the first 10 days after the procedure or as instructed by your health care provider: ?Do not lift anything that is heavier than 10 lb (4.5 kg). ?Do not jog, swim, or do other strenuous exercises. ?Do not play contact sports. Avoid sitting for a long time without moving. Get up to take short walks every 1 2 hours. This is needed to improve blood flow and breathing. Ask for help if you feel weak or unsteady. Return to your normal activities as told by your health care provider. Ask your health care provider what activities are safe for you. General instructions Do not use any products that contain nicotine or tobacco, such as cigarettes and e-cigarettes. These can delay healing after surgery. If you need help quitting, ask your health care provider. Keep all follow-up visits as told by your health care provider. This is important. Your health careprovider needs to monitor the calcium level in your blood to make sure that it does not become low. Contact a health care provider if you: Have a fever. Have more redness, swelling, or pain around your incision area. Have fluid or blood coming from your incision area. Notice that your incision area feels warm to the touch. Have pus or a bad smell coming from your incision area. Have trouble talking. Have nausea or vomiting for more than 2 days. Get help right away if you: Have trouble breathing. Have trouble swallowing. Develop a rash. Develop a cough that gets worse. Notice that your speech changes, or you have hoarseness that gets worse. Develop numbness, tingling, or muscle spasms in the arms, hands, feet, or face. Summary After the procedure, it is common to feel mild pain in the neck or upper body, especially when swallowing. Take medicines as told by your health care provider. These include pain medicines and thyroid hormones, if required. Follow instructions from your health care provider about how to take care of your incision. Watch for signs of infection. Keep all follow-up visits as told by your health care provider. This is important. Your health careprovider needs to monitor the calcium level in your blood to make sure that it does not become low. Get help right away if you develop difficulty breathing, or numbness, tingling, or muscle spasms inthe arms, hands, feet, or face. This information is not intended to replace advice given to you by your health care provider. Make sure you discuss any questions you have with your health care provider. Document Revised: 12/16/2020 Document Reviewed: 12/16/2020 [employer] Patient Education 2022 [employer]. Follow Up Care 12/01/2022 11:21:57 With:Yuliana Murillo Address: [address] [place] [address], [address] [place] [address]- Business (1) When:12/15/2022 Comments:Call for appt With:SHAIKH VALENTINE Address: [address] [place] [phone] Business (1) When: Unknown [facility]08-14-2023 Note [id number] 11-22-2022 Hospital Discharge instructions Patient Education 11/22/2022 07:25:42 Shortness of Breath, Adult Shortness of Breath, Adult Shortness of breath is when a person has trouble breathing or when a person feels like she or he ishaving trouble breathing in enough air. Shortness of breath could be a sign of a medical problem. Follow these instructions at home: Pollutants Do not use any products that contain nicotine or tobacco. These products include cigarettes, chewing tobacco, and vaping devices, such as e-cigarettes. This also includes cigars and pipes. If you need help quitting, ask your health care provider. Avoid things that can irritate your airways, including: ?Smoke. This includes campfire smoke, forest fire smoke, and secondhand smoke from tobacco products. Do not smoke or allow others to smoke in your home. ?Mold. ?Dust. ?Air pollution. ?Chemical fumes. ?Things that can give you an allergic reaction (allergens) if you have allergies. Common allergens include pollen from grasses or trees and animal dander. Keep your living space clean and free of mold and dust. General instructions Pay attention to any changes in your symptoms. Take pgoy-red-ucaqtmv and prescription medicines only as told by your health care provider. This includes oxygen therapy and inhaled medicines. Rest as needed. Return to your normal activities as told by your health care provider. Ask your health care provider what activities are safe for you. Keep all follow-up visits. This is important. Contact a health care provider if: Your condition does not improve as soon as expected. You have a hard time doing your normal activities, even after you rest. You have new symptoms. You cannot walk up stairs or exercise the way that you normally do. Get help right away if: Your shortness of breath gets worse. You have shortness of breath when you are resting. You feel light-headed or you faint. You have a cough that is not controlled with medicines. You cough up blood. You have pain with breathing. You have pain in your chest, arms, shoulders, or abdomen. You have a fever. These symptoms may be an emergency. Get help right away. Call 911. Do not wait to see if the symptoms will go away. Do not drive yourself to the hospital. Summary Shortness of breath is when a person has trouble breathing enough air. It can be a sign of a medical problem. Avoid things that irritate your lungs, such as smoking, pollution, mold, and dust. Pay attention to changes in your symptoms and contact your health care provider if you have a hard time completing daily activities because of shortness of breath. This information is not intended to replace advice given to you by your health care provider. Make sure you discuss any questions you have with your health care provider. Document Revised: 11/26/2021 Document Reviewed: 11/26/2021 [employer] Patient Education 2022 [employer]. Follow Up Care 11/09/2022 08:01:01 With:Yuliana Murillo Address: [address] [place] [address]- Business (1) When:11/29/2022 With:SHAIKH VALENTINE Address: [address] [place] [address] [phone] Business (1) When: Unknown [facility]08-01-2023 Evaluation + Plan noteExtracted from: Title:CSB post op Author:Phillip Limon MD Date:11/21/22 Plan Transfer/Discharge: Transfer/Discharge Discharge when meets criteria ( From PACU to floor ). Extracted from: Title:FLORECITAB Preop Author:Phillip Limon MD Date:11/21/22 Plan [place] [employer] (ASA) physical status classification: Class II. Anesthetic Preoperative Plan: Anesthesia General. [facility]07-25-2023 Note [id number] 10-17-2022 Evaluation note* Encounter Date Diagnosis Assessment Notes Treatment Notes Treatment Clinical Notes Sep, Routine sports physical exam (ICD-10 - Z02.5) Exam and history without significant abnormality. Cleared for sports without restriction. Discussed with mother and patient she needs to discuss sports participation with specialist dependent on biopsy results from thyroid nodule. Mother and patient verbalized understanding. Advised to report any sports related injuries to coaches and parents right away. Continue to follow-up with PCP for regular well visits. Mother and patient deny any current health concerns or questions. [employer] Other Evaluation note* Diagnosis Thyroid cancer (HCC)- Primary Malignant neoplasm of thyroid gland [facility] [place] [facility] Diagnosis Thyroid cancer (HCC)- Primary Malignant neoplasm of thyroid gland [facility] [place] [facility] Diagnosis Thyroid cancer (HCC)- Primary Malignant neoplasm of thyroid gland [facility] [place] [facility]* Diagnosis Thyroid cancer (HCC)- Primary Malignant neoplasm of thyroid gland [facility] [place] [facility]* Diagnosis Thyroid cancer (HCC)- Primary Malignant neoplasm of thyroid gland [facility] [place] [facility] Diagnosis Thyroid cancer (HCC)- Primary Malignant neoplasm of thyroid gland [facility] [place] [facility] No assessment recorded. [place] [facility] Diagnosis Well woman exam with routine gynecological exam Routine gynecological examination documented [facility] - Reported* Type Description Date Medical History Menorrhagia Medical History Hypothyroid [employer] Other History general Narrative - ReportedNo medical history recorded. Gynecological HistoryNo gynecological history recorded. Obstetrics History GPAL:G 0 P 0 0 0 0 [place] - [facility] Narrative No data available for this section [facility] data available for this section [facility] Summary Purpose Family History Relationship Description Onset Age of this Age Resolved Age Notes LastModified by Organization Details LastModified Time Father No current problems or disability Not available 10/22 10:26:59 Mother No current problems or disability [email or web address] Not available 10/22 10:26:59 Advance Directives No Advanced Directives Records FoundNo Advanced Directives Records FoundNo Advanced Directives Records Found Additional Source Comments INFORMATION SOURCE (unrecogn ized section and content) DATE CREATED AUTHOR 08/02/2022 [facility] DATE CREATED AUTHOR AUTHOR'S ORGANIZ ATION 06/05/2023 [facility] DATE CREATED AUTHOR AUTHOR'S ORGANIZ ATION 10/02/2024 [facility] REASON FOR VISIT (unrecogniz ed section and content) Reason Comments Consult Reason Comments Med Change Request Reason Comments Established Patient Reason Comments Appointment Confirmation Reason Comments Future Appointment Reason Onset Date Comments Refill Request 10/29/2023 Reason Comments Appointment Reason Comments Lab Orders Reason Onset Date Comments Refill Request 04/14/2024 Reason Comments Thyroid Cancer Reason Comments Gynecologic Exam Patient Care team informatio n (unrecognized section and content) Director Microbiology Relationship Specialty Start Date End Date Shaikh Grijalva MD [address] [place] [address] PCP - General Primary Care 03/16/23 Director Microbiology Relationship Specialty Start Date End Date Shaikh Grijalva MD [address] [place] [address] PCP - General Primary Care 03/16/23 Director Microbiology Relationship Specialty Start Date End Date Shaikh Grijalva MD [address] [place] [address] PCP - General Primary Care 03/16/23 Director Microbiology Relationship Specialty Start Date End Date Shaikh Grijalva MD [address] [place] [address] PCP - General Primary Care 03/16/23 Director Microbiology Relationship Specialty Start Date End Date Shaikh Grijalva MD [address] [place] [address] PCP - General Primary Care 03/16/23 Director Microbiology Relationship Specialty Start Date End Date Shaikh Grijalva MD PCP - General Internal Medicine 09/28/22 Director Microbiology Relationship Specialty Start Date End Date Shaikh Grijalva MD PCP - General Internal Medicine 09/28/22 Source Comments (unrecognize d section and content) In the event this informatio n is protected by the Federal Confidentiality of Alcohol and Drug Abuse Patient Records regulations: The Federal rules restrict any use of the information to criminally investigate or prosecute any alcohol or drug abuse patient.[facility] the event this information is protected by the Federal Confidentiality of Alcohol and Drug Abuse Patient Records regulations: The Federal rules restrict any use of the information to criminally investigate or prosecute any alcohol or drug abuse patient.[facility] the event this information is protected by the Federal Confidentiality of Alcohol and Drug Abuse Patient Records regulations: The Federal rules restrict any use of the information to criminally investigate or prosecute any alcohol or drug abuse patient.[facility] the event this information is protected by the Federal Confidentiality of Alcohol and Drug Abuse Patient Records regulations: The Federal rules restrict any use of the information to criminally investigate or prosecute any alcohol or drug abuse patient.[facility] the event this information is protected by the Federal Confidentiality of Alcohol and Drug Abuse Patient Records regulations: The Federal rules restrict any use of the information to criminally investigate or prosecute any alcohol or drug abuse patient.[facility] the event this information is protected by the Federal Confidentiality of Alcohol and Drug Abuse Patient Records regulations: The Federal rules restrict any use of the information to criminally investigate or prosecute any alcohol or drug abuse patient.[facility] the event this information is protected by the Federal Confidentiality of Alcohol and Drug Abuse Patient Records regulations: The Federal rules restrict any use of the information to criminally investigate or prosecute any alcohol or drug abuse patient.[facility] the event this information is protected by the Federal Confidentiality of Alcohol and Drug Abuse Patient Records regulations: The Federal rules restrict any use of the information to criminally investigate or prosecute any alcohol or drug abuse patient.[facility] the event this information is protected by the Federal Confidentiality of Alcohol and Drug Abuse Patient Records regulations: The Federal rules restrict any use of the information to criminally investigate or prosecute any alcohol or drug abuse patient.[facility] the event this information is protected by the Federal Confidentiality of Alcohol and Drug Abuse Patient Records regulations: The Federal rules restrict any use of the information to criminally investigate or prosecute any alcohol or drug abuse patient.[facility] the event this information is protected by the Federal Confidentiality of Alcohol and Drug Abuse Patient Records regulations: The Federal rules restrict any use of the information to criminally investigate or prosecute any alcohol or drug abuse patient.[facility] the event this information is protected by the Federal Confidentiality of Alcohol and Drug Abuse Patient Records regulations: The Federal rules restrict any use of the information to criminally investigate or prosecute any alcohol or drug abuse patient.[facility] Hospital[facility] the event this information is protected by the Federal Confidentiality of Alcohol and Drug Abuse Patient Records regulations: The Federal rules restrict any use of the information to criminally investigate or prosecute any alcohol or drug abuse patient.[facility] Hospital[facility] the event this information is protected by the Federal Confidentiality of Alcohol and Drug Abuse Patient Records regulations: The Federal rules restrict any use of the information to criminally investigate or prosecute any alcohol or drug abuse patient.[facility] Hospital[facility] the event this information is protected by the Federal Confidentiality of Alcohol and Drug Abuse Patient Records regulations: The Federal rules restrict any use of the information to criminally investigate or prosecute any alcohol or drug abuse patient.[facility] Hospital[facility] the event this information is protected by the Federal Confidentiality of Alcohol and Drug Abuse Patient Records regulations: The Federal rules restrict any use of the information to criminally investigate or prosecute any alcohol or drug abuse patient.[facility] FOR RECORDS PERTAINING TO PATIENTS WHO ARE OR HAVE BEEN ENROLLED IN A CHEMICAL DEPENDENCY/SUBSTANCEABUSE PROGRAM, SOME INFORMATION MAY BE OMITTED. This clinical summary was aggregated from multiple sources. Caution should be exercised in using it in the provision of clinical care. This summary normalizes information from multiple sources, and as a consequence, information in this document may materially change the coding, format and clinical context of patient data. In addition, data may be omitted in some cases. CLINICAL DECISIONS SHOULD BE BASED ON THE PRIMARY CLINICAL RECORDS. [facility]. provides no warranty or guarantee of the accuracy or completeness of information in this document.
[2025-01-05 15:08] LABS: Age Gdln ACOG Testing Note (.); IGP, rfx Aptima HPV ASCU Note (.)
== END 2025-01-01 14:54 | disposition home or self-care (01) ==
LOC: LAB 14:53
PROVIDERS: PCP Internal Medicine; Visit Provider Physician Assistant
DX: Z01.419 Encounter for gynecological examination (general) (routine) without abnormal findings (principal)
CPT/HCPCS: 88175